=== PATIENT | female | born 2000 ===

== ENCOUNTER → 2023-01-01 10:56 | Outpatient (BNVA) | payer OTHER, SELFPAY | PROVIDERS: Visit Provider Physician Assistant Surgical ==

== ENCOUNTER 2023-01-20 08:25 | Outpatient (AMB) | payer OTHER, SELFPAY ==
--- OUTSIDE RECORDS SUMMARY | 2023-01-20 08:27 | XMS_ITS | Continuity of Care Document ---
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 Refills 0, Maintenance, 12/05/20 12:04:00 EDT, Aerosol, Route to Pharmacy Electronically, [id number], [facility] #[id number], 162.1, cm, 12/07/19 17:49:... Start Date: 12/05/20 Status: Ordered Bactrim DS 800 mg-160 mg oral tablet 1 tablet, By Mouth, 2 times a day, # 10 tablet, 0 Refills, Maintenance, 10/06/17 18:57:34 EDT, Tablet Start Date: 10/06/17 Stop Date: 10/11/17 Status: Ordered doxycycline monohydrate 100 mg oral capsule 1 capsule = 100 mg, By Mouth, 2 times a day, for 7 days, stay out of the sun while taking this medication as it increases risk of severe sunburn, # 14 capsule, 0 Refills, Acute 12/13/20 10:07:00 EDT,12/06/20 10:07:00 EDT, Capsule, [facility] Start Date: 12/06/20 Stop Date: 12/13/20 Status: Ordered Keflex monohydrate 500 mg oral capsule 1 capsule = 500 mg, By Mouth, Every 8 hours, # 15 capsule, 0 Refills, Maintenance, 05/25/16 17:41:07, Capsule Start Date: 05/25/16 Status: Ordered lovastatin 10 mg oral tablet 1 tablet = 10 mg, By Mouth, Daily, with evening meal, # 90 tablet, 0 Refills, Maintenance, 05/12/1512:13:48, Tablet, 1 tablet By Mouth Daily,x90 days,Instr:with evening meal Start Date: 05/12/15 Stop Date: 08/10/15 Status: Ordered [place] 0.65% nasal spray 2 sprays, Nares, Both, 4 times a day, # 1 each, 0 Refills, Maintenance, 12/05/20 12:04:00 EDT, [email or web address] #[id number], Partial fill upon patient request if the prescription is for a schedule II opioid drug., 2 sprays Nares, Both 4 times a day, 16... Start Date: 12/05/20 Status: Ordered omeprazole 40 mg oral enteric coated capsule 1 capsule = 40 mg, By Mouth, Daily, # 14 capsule, 0 Refills, Maintenance, 06/19/18 15:41:06 EST, [facility] Start Date: 06/19/18 Stop Date: 07/03/18 Status: Ordered pseudoephedrine 30 mg oral tablet 2 tablet = 60 mg, By Mouth, Every 6 hours, PRN for congestion, for 7 days, # 48 tablet, 0 Refills, Acute 12/12/20 12:04:00 EDT, 12/05/20 12:04:00 EDT, Tablet, [email or web address] #[id number], Partial fill upon patient request if the prescription is for a... Start Date: 12/05/20 Stop Date: 12/12/20 Status: Ordered Tessalon Perles 100 mg oral capsule 1 capsule = 100 mg, By Mouth, 3 times a day, PRN as needed for cough, for 7 days, # 21 capsule, 0 Refills, Acute 12/12/20 12:04:00 EDT, 12/05/20 12:04:00 EDT, Capsule, [facility] #[id number], Partial fill upon patient request if the prescription... Start Date: 12/05/20 Stop Date: 12/12/20 Status: Ordered Vitamin D3 2000 intl units oral capsule 1 capsule = 2,000 International_Units, By Mouth, Daily, 0 Refills, Maintenance, 06/08/15 17:17:20 Start Date: 06/08/15 Status: Ordered Problem List Condition Effective Dates Status Health Status Inform ant Acanthosis nigricans(Confirmed) Active Exogenous obesity(Confirmed) Active Familial hypercholesterolemia(Confirmed) Active Hyperinsulinism(Confirmed) Active Hyperlipidemia(Confirmed) Active Anxiety and depression(Confirmed) Active Results Radiology Reports * Exam Date Time Procedure Performing Provider Status 12/06/20 7:58 AM Chest 2 Views Frontal and Lat Shannon Valenzuela; Auth (Verified) Notes: (Chest 2 Views Frontal and Lat) Reason For Exam: Chest Pain;Other: RESULT: Chest 2 Views Frontal and Lat Chest 2 Views Frontal and Lat HX OF PRESENT ILLNESS: pt coming in with cough OSB x4 days. States that it has been intermittent innature, feels like she can't take a deep breath. Also with chest pain that has been intermittent innature as well. Describes as sharp pain.; Reason: Chest Pain COMPARISON: None. FINDINGS: LINES AND TUBES: None. LUNGS AND PLEURA: Clear lungs. Normal pulmonary vascularity. No pleural effusion. No pneumothorax. HEART, MEDIASTINUM AND LAKISHA: Heart is normal in size. Normal mediastinal and hilar contour. BONES AND SOFT TISSUES: No acute abnormality. IMPRESSION: No evidence of acute abnormality. WSN: [id number] Ordering Physician: Ana Paula Ferraro Dictated By: Obey Del Rio MD Dictated Date/Time: 12/06/20 8:05 am Reviewed By: Obey Del Rio MD Signed By: Obey Del Rio MD Signed Date/Time: 12/06/20 8:05 am Transcribed By: KEN Transcribed Date/Time: 12/06/20 8:04 am Vital Signs Most recent to oldest [Reference Range]: 1 2 Oxygen Saturation [94-100 %] 98 % (12/06/20 9:31 AM) 98 % (12/06/20 7:17 AM) Pulse Rate [55-90 bpm] 76 bpm (12/06/20 9:31 AM) 96 bpm *H* (12/06/20 7:17 AM) Blood Pressure [90-138/55-84 mm Hg] 121/ 81mm Hg (12/06/20 9:31 AM) 144/80mm Hg *H* (12/06/20 7:17 AM) Respiratory Rate [16-30 br/min] 18 br/mi n (12/06/20 9:31 AM) 22 br/min (12/06/20 7:17 AM) Temperature [96.8-100.4 DegF] 98.1 DegF (12/06/20 9:31 AM) 99.0 DegF (12/06/20 7:17 AM) Mode of Delivery (Oxygen) Room air (12/06/20 9:31 AM) Room air (12/06/20 7:17 AM) Blood pressure sites Arm, right (12/06/20 7:17 AM) Temperature Route Oral (12/06/20 9:31 AM) Oral (12/06/20 7:17 AM) Social History Social History Type Response Smoking Status Never smoker; Tobacc o user in household: No entered on: 06/08/15 Sex
--- OUTSIDE RECORDS SUMMARY | 2023-01-20 08:27 | XMS_ITS | Continuity of Care Document ---
Author Name Unknown Organization [facility] Address [address] [place] [address]- Care Team Providers Care Office Rental Clerk Name Role Phone Nicky GARZA, Melany Macario Primary Care Ph ysician [place] [facility] [place](s[place] 12/07/19 - 12/14/19 [facility] [address] [place] [address]- [facility] Encounter Diagnosis Tongue irritation(Discharge Diagnosis) - 12/07/19 Attending Physician: Nader GARZA, Ray Villarreal Referring Physician: Emanuel Wright MD Allergies, Adverse Reactions, Alerts Substance Reaction Severity Status NKA Active Medications Bactrim DS 800 mg-160 mg oral tablet 1 tablet, By Mouth, 2 times a day, # 10 tablet, 0 Refills, Maintenance, 10/06/17 18:57:34 EDT, Tablet Start Date: 10/06/17 Stop Date: 10/11/17 Status: Ordered clotrimazole 10 mg oral lozenge 10 mg, 1, lozenge, By Mouth, 5 times a day, for 14 days, # 70 lozenge, Refills 0, Tot. Refills 0, Acute 12/21/19 18:13:00 EDT, 12/07/19 18:13:00 EDT, Route to Pharmacy Electronically, [facility] #[id number], 162.1, cm, 12/07/19 17:49:00 EDT, Roberto Start Date: 12/07/19 Stop Date: 12/21/19 Status: Ordered Keflex monohydrate 500 mg oral [...] Date: 05/12/15 Stop Date: 08/10/15 Status: Ordered omeprazole 40 mg oral enteric coated capsule 1 capsule = 40 mg, By Mouth, Daily, # 14 capsule, 0 Refills, Maintenance, 06/19/18 15:41:06 EST, ECCapsule Start Date: 06/19/18 Stop Date: 07/03/18 Status: Ordered Vitamin D3 2000 intl units oral capsule 1 capsule = 2,000 International_Units, By Mouth, Daily, 0 Refills, Maintenance, 06/08/15 17:17:20 Start Date: 06/08/15 Status: Ordered Problem List Condition Effective Dates Status Health Status Inform ant Acanthosis nigricans(Confirmed) Active Exogenous obesity(Confirmed) Active Familial hypercholesterolemia(Confirmed) Active Hyperinsulinism(Confirmed) Active Hyperlipidemia(Confirmed) Active Anxiety and depression(Confirmed) Active Diagnosis Diagnosis Type Effective Dates Health Status Clinical Service Informant Tongue irritation Discharge Diagnosis 12/07/19 Vital Signs Most recent to oldest [Reference Range]: 1 Height 162.1 cm (12/07/19 5:49 PM) Weight 108.1 kg (12/07/19 5:49 PM) Oxygen Saturation [94-100 %] 100 % (12/07/19 5:49 PM) Pulse Rate [55-90 bpm] 82 bpm (12/07/19 5:49 PM) Body Mass Index [18.5-24.99] 41.14 *>HHI* (12/07/19 5:49 PM) Blood Pressure [90-138/55-84 mm Hg] 127/ 67mm Hg (12/07/19 5:49 PM) Respiratory Rate [16-30 br/min] 18 br/mi n (12/07/19 5:49 PM) Temperature [96.8-100.4 DegF] 97.4 DegF (12/07/19 5:49 PM) Mode of Delivery (Oxygen) Room air (12/07/19 5:49 PM) Blood pressure sites Arm, right (12/07/19 5:49 PM) Temperature Route Temporal (7/14/20 5:49 PM) Dry Weight 108.1 kg (12/07/19 5:49 PM) Weight Obtained Via Standing scale (12/07/19 5:49 PM) Dry Weight Obtained Via Standing scale (12/07/19 5:49 PM) Social History Social History Type Response Smoking Status Never smoker; Tobacc o user in household: No entered on: 06/08/15 Sex
--- OUTSIDE RECORDS SUMMARY | 2023-01-20 08:27 | XMS_ITS | Continuity of Care Document ---
Author Name Unknown Organization [facility] Address [address] [place] [address]- Care Team Providers Care Public Address System Operator Name Role Phone Nicky GARZA, Melany Macario Primary Care Ph ysician Encounter [facility] [place] Date(s): 08/23/19 - 08/30/19 [facility] [address] [place] [address]- [facility] Attending Physician: Hasmukh GARZA, Zully Crawford Referring Physician: Melany Saunders MD Allergies, Adverse Reactions, Alerts Substance Reaction Severity Status NKA Active Medications Bactrim DS 800 mg-160 mg oral tablet 1 tablet, By Mouth, 2 times a day, # 10 tablet, 0 Refills, Maintenance, 10/06/17 18:57:34 EDT, Tablet Start Date: 10/06/17 Stop Date: 10/11/17 Status: Ordered Flagyl 500 mg oral tablet 1 tablet = 500 mg, By Mouth, Every 12 hours, for 7 days, do not drink alcohol, # 14 tablet, 0 Refills, Acute 09/02/19 16:19:00 EDT, 08/26/19 16:19:00 EDT, Tablet, [facility] #[id number], 162.1, cm, 08/25/19 15:47:00 EDT, Height, 109.3, kg, ... Start Date: 08/26/19 Stop Date: 09/02/19 Status: Ordered Keflex monohydrate 500 mg oral [...] Active Hyperlipidemia(Confirmed) Active Anxiety and depression(Confirmed) Active Vital Signs Most recent to oldest [Reference Range]: 1 Height 162.1 cm (08/23/19 2:30 PM) Weight 109.3 kg (08/23/19 2:30 PM) Oxygen Saturation [94-100 %] 100 % (08/23/19 2:30 PM) Pulse Rate [55-90 bpm] 98 bpm *H* (08/23/19 2:30 PM) Body Mass Index [18.5-24.99] 41.6 *>HHI* (08/23/19 2:30 PM) Blood Pressure [90-138/55-84 mm Hg] 130/ 75mm Hg (08/23/19 2:30 PM) Respiratory Rate [16-30 br/min] 18 br/mi n (08/23/19 2:30 PM) Temperature [96.8-100.4 DegF] 98.0 DegF (08/23/19 2:30 PM) Mode of Delivery (Oxygen) Room air (08/23/19 2:30 PM) Blood pressure sites Arm, right (08/23/19 2:30 PM) Temperature Route Oral (08/23/19 2:30 PM) Dry Weight 109.3 kg (08/23/19 2:30 PM) Weight Obtained Via Standing scale (08/23/19 2:30 PM) Dry Weight Obtained Via Standing scale (08/23/19 2:30 PM) Social History Social History Type Response Smoking Status Never smoker; Tobacc o user in household: No entered on: 06/08/15 Sex
--- OUTSIDE RECORDS SUMMARY | 2023-01-20 08:27 | XMS_ITS | Continuity of Care Document ---
Author Name Unknown Organization [facility] Address [address] [place] [address]- Care Team Providers Care Emergency Telecommunications Dispatcher Name Role Phone Teodora LAGUNAS, Leonora Primary Care Physician [place] [facility] [place] 12/05/20 - 01/04/21 [facility] [address], [place] [address] Attending Physician: Bandar Kyle Admitting Physician: AdmtrBandar Referring Physician: Admtr, Ar8 Allergies, Adverse Reactions, Alerts Substance Reaction Severity Status NKA Active Medications albuterol CFC free 90 mcg/inh inhalation aerosol 2, puffs, Inhalation, Every 4 hours, PRN, # 1 each, Refills 0, Tot. Refills 0, Maintenance, 12/05/20 12:04:00 EDT, Aerosol, Route to Pharmacy Electronically, [id number], [facility] #[id number], 162.1, cm, 12/07/19 17:49:... Start Date: 12/05/20 Status: Ordered Bactrim DS 800 mg-160 mg oral tablet 1 tablet, By Mouth, 2 times a day, # 10 tablet, 0 Refills, Maintenance, 10/06/17 18:57:34 EDT, Tablet Start Date: 10/06/17 Stop Date: 10/11/17 Status: Ordered Keflex monohydrate 500 mg oral [...] Date: 05/12/15 Stop Date: 08/10/15 Status: Ordered [place] 0.65% nasal spray 2 sprays, Nares, Both, 4 times a day, # 1 each, 0 Refills, Maintenance, 12/05/20 12:04:00 EDT, [facility] #[id number], Partial fill upon patient request if the [...] Active Hyperlipidemia(Confirmed) Active Anxiety and depression(Confirmed) Active Social History Social History Type Response Smoking Status Never smoker; Tobacc o user in household: No entered on: 06/08/15 Sex
--- OUTSIDE RECORDS SUMMARY | 2023-01-20 08:27 | XMS_ITS | Continuity of Care Document ---
Author Name Unknown Organization [facility] Address [address] [place] [address]- Care Team Providers Care Auto Motor Mechanic Name Role Phone Nicky GARZA, Melany Macario Primary Care Ph ysician [place] [facility] [place] 08/25/19 - 09/04/19 [facility] [address] [place] [address]- [facility] Attending Physician: Bandar Kyle Admitting Physician: AdmtrBandar Referring Physician: Admtr ArRaul Allergies, Adverse Reactions, Alerts Substance Reaction Severity [...]
--- OUTSIDE RECORDS SUMMARY | 2023-01-20 08:27 | XMS_ITS | Continuity of Care Document ---
Author Name Unknown Organization [facility] Address [address] [place] [address]- Care Team Providers Care Gear Cutter Name Role Phone Nicky GARZA, Melany Macario Primary Care Ph ysician [place] [facility] [place]07[place] - 01/06/20 [facility] [address] [place] [address]- [facility] Attending Physician: Bandar Kyle Admitting Physician: [...]
--- OUTSIDE RECORDS SUMMARY | 2023-01-20 08:27 | XMS_ITS | Continuity of Care Document ---
Author Name Unknown Organization [facility] Address [address] [place] [address]- Care Team Providers Care Life Insurance Salesperson Name Role Phone Not on Staff, PCP Primary Care Physician Unavail able Encounter [facility] [place] Date(s): 09/07/21 - 09/14/21 [facility] [address] [place] [address]- Encounter Diagnosis Cellulitis(Discharge Diagnosis) - 09/07/21 Attending Physician: Elieser Payne DO Allergies, Adverse Reactions, Alerts No Known Allergies Medications albuterol CFC free 90 mcg/inh inhalation aerosol 2, puffs, Inhalation, Every 4 hours, PRN, # 1 each, Refills 0, Tot. Refills 0, Maintenance, 12/05/20 12:04:00 EDT, Aerosol, Route to Pharmacy Electronically, [id number], [facility] #[id number], 162.1, cm, 12/07/19 17:49:... Start Date: 12/05/20 Status: Ordered Bactrim DS 800 mg-160 mg oral tablet 1 tablet, By Mouth, 2 times a day, # 10 tablet, 0 Refills, Maintenance, 10/06/17 18:57:34 EDT, Tablet Start Date: 10/06/17 Stop Date: 10/11/17 Status: Ordered cephalexin monohydrate 500 mg oral capsule 1 capsule = 500 mg, By Mouth, 4 times a day, for 10 days, # 40 capsule, 0 Refills, Acute 09/18/21 22:07:00 EDT, 09/08/21 22:07:00 EDT, Capsule, [facility] #[id number], Partial fill upon patient request if the prescription is for a schedule II opioid drug.... Start Date: 09/08/21 Stop Date: 09/18/21 Status: Ordered Keflex monohydrate 500 mg oral [...] Date: 05/12/15 Stop Date: 08/10/15 Status: Ordered [place] 0.65% nasal spray 2 sprays, Nares, Both, 4 times a day, # 1 each, 0 Refills, Maintenance, 12/05/20 12:04:00 EDT, [id number], Partial fill upon patient request if the [...] Active Hyperlipidemia(Confirmed) Active Anxiety and depression(Confirmed) Active Obese class II(Confirmed) Active Diagnosis Diagnosis Type Effective Dates Health Status Clini marcy Service Informant Cellulitis Discharge Diagnosis 09/07/21 Vital Signs Most recent to oldest [Reference Range]: 1 Height 162.1 cm (09/07/21 1:31 PM) Oxygen Saturation [94-100 %] 100 % (09/07/21 1:31 PM) Pulse Rate [55-90 bpm] 65 bpm (09/07/21 1:31 PM) Blood Pressure [90-138/55-84 mm Hg] 123/ 71mm Hg (09/07/21 1:31 PM) Respiratory Rate [16-30 br/min] 20 br/mi n (09/07/21 1:31 PM) Temperature [96.8-100.4 DegF] 98.1 DegF (09/07/21 1:31 PM) Mode of Delivery (Oxygen) Room air (09/07/21 1:31 PM) Blood pressure sites Arm, right (09/07/21 1:31 PM) Temperature Route Temporal (09/07/21 1:31 PM) Social History Social History Type Response Smoking Status Never smoker; Tobacc o user in household: No entered on: 06/08/15 Sex
--- OUTSIDE RECORDS SUMMARY | 2023-01-20 08:27 | XMS_ITS | Continuity of Care Document ---
Author Name Unknown Organization [facility] Address [address] [place] [address]- Care Team Providers Care Boring And Filling Machine Operator Name Role Phone Not on Staff, PCP Primary Care Physician Unavail able Encounter [facility] [place] Date(s): 09/07/21 - 10/07/21 [facility] [address] [place], [place] [address] Attending Physician: Bandar Kyle Admitting Physician: Bandar Kyle Referring Physician: Bandar Kyle Allergies, Adverse Reactions, Alerts No Known Allergies Medications albuterol CFC free 90 mcg/inh inhalation aerosol 2, puffs, Inhalation, Every 4 hours, PRN, # 1 each, Refills 0, Tot. Refills 0, Maintenance, 12/05/20 12:04:00 EDT, Aerosol, Route to Pharmacy Electronically, [id number], [facility] #[id number], 162.1, cm, 12/07/19 17:49:... Start Date: 12/05/20 [...] Date: 05/12/15 Stop Date: 08/10/15 Status: Ordered [place] 0.65% nasal spray 2 sprays, Nares, Both, 4 times a day, # 1 each, 0 Refills, Maintenance, 12/05/20 12:04:00 EDT, [facility] #[id number], Partial fill upon patient request if the [...] and depression(Confirmed) Active Obese class II(Confirmed) Active Social History Social History Type Response Smoking Status Never smoker; Tobacc o user in household: No entered on: 06/08/15 Sex
--- OUTSIDE RECORDS SUMMARY | 2023-01-20 08:27 | XMS_ITS | Continuity of Care Document ---
Author Name Unknown Organization [facility] Address [address] [place] [address]- Care Team Providers Care Flue Blower Name Role Phone Teodora LAGUNAS, Leonora Primary Care Physician Unavailab le Encounter [facility] [place] Date(s): 12/05/20 - 12/12/20 [facility] [address] [place] [address]- Encounter Diagnosis Viral URI with cough(Discharge Diagnosis) - 12/05/20 Attending Physician: Cj GARZA, Eva Referring Physician: Leonora Araiza NP Allergies, Adverse Reactions, Alerts Substance Reaction Severity Status NKA Active Medications albuterol CFC free 90 mcg/inh inhalation aerosol 2, puffs, Inhalation, Every 4 hours, PRN, # 1 each, Refills 0, Tot. Refills 0, Maintenance, 12/05/20 12:04:00 EDT, Aerosol, Route to Pharmacy Electronically, [id number], [facility] #[id number], 162.1, cm, 12/07/19 17:49:... Start Date: 12/05/20 [...] Acute 12/13/20 10:07:00 EDT,12/06/20 10:07:00 EDT, Capsule, [facility] Start Date: 12/06/20 Stop Date: [...] Date: 05/12/15 Stop Date: 08/10/15 Status: Ordered [place] 0.65% nasal spray 2 sprays, Nares, Both, 4 times a day, # 1 each, 0 Refills, Maintenance, 12/05/20 12:04:00 EDT, [facility] #[id number], Partial fill upon patient request if the [...] Diagnosis Diagnosis Type Effective Dates Health Status Cl inical Service Informant Viral URI with cough Discharge Diagnosis 12/05/20 Social History Social History Type Response Smoking Status Never smoker; Tobacc o user in household: No entered on: 06/08/15 Sex
--- OUTSIDE RECORDS SUMMARY | 2023-01-20 08:27 | XMS_ITS | Continuity of Care Document ---
Author Name Unknown Organization [facility] Address [address] [place] [address]- Care Team Providers Care Pediatric Anesthesiologist Name Role Phone Nicky GARZA, Melany Macario Primary Care Ph ysician En[place] [facility] [place](s): 08/25/19 - 09/01/19 [facility] [address] [place] [address]- [facility] Attending Physician: Hasmukh GARZA, Zully Crawford Referring [...] 09/02/19 16:19:00 EDT, 08/26/19 16:19:00 EDT, Tablet, [facility] #[id number], 162.1, cm, 08/25/19 15:47:00 EDT, Height, 109.3, kg, 08/22/... Start Date: 08/26/19 Stop Date: 09/02/19 Status: [...] oldest [Reference Range]: 1 Height 162.1 cm (08/25/19 3:47 PM) Oxygen Saturation [94-100 %] 100 % (08/25/19 3:47 PM) Pulse Rate [55-90 bpm] 88 bpm (08/25/19 3:47 PM) Blood Pressure [90-138/55-84 mm Hg] 113/ 67mm Hg (08/25/19 3:47 PM) Respiratory Rate [16-30 br/min] 22 br/mi n (08/25/19 3:47 PM) Temperature [96.8-100.4 DegF] 98.3 DegF (08/25/19 3:47 PM) Mode of Delivery (Oxygen) Room air (08/25/19 3:47 PM) Blood pressure sites Arm, left (08/25/19 3:47 PM) Temperature Route Oral (08/25/19 3:47 PM) Social History Social History Type Response Smoking Status Never smoker; Tobacc o user in household: No entered on: 06/08/15 Sex
--- OUTSIDE RECORDS SUMMARY | 2023-01-20 08:27 | XMS_ITS | Continuity of Care Document ---
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 Refills 0, Maintenance, 12/05/20 12:04:00 EDT, Aerosol, Route to Pharmacy Electronically, [id number], [id number], 162.1, cm, 12/07/19 17:49:... Start Date: 12/05/20 Status: Ordered Ativan 0.5 mg oral tablet 1 tablet = 0.5 mg, By Mouth, 2 times a day, PRN as needed for anxiety, # 2 tablet, 0 Refills, Acute08/23/22 22:45:00 EDT, 08/19/22 22:44:00 EDT, Tablet, [facility]/pharmacy #[id number], Partial fill upon patientrequest if the prescription is for a schedule II op... Start Date: 08/19/22 Stop Date: 08/23/22 Status: Ordered Bactrim DS 800 mg-160 mg [...] Date: 05/12/15 Stop Date: 08/10/15 Status: Ordered [place] 0.65% nasal spray 2 sprays, Nares, Both, 4 times a day, # 1 each, 0 Refills, Maintenance, 12/05/20 12:04:00 EDT, [facility] #[id number], Partial fill upon patient request if the [...] Date: 06/08/15 Status: Ordered Problem List Condition Confirmation Course Effective Dates Status Health Status Informant Acanthosis nigricans Confirmed Active Exogenous obesity Confirmed Active Familial hypercholesterolemia Confirmed Active Hyperinsulinism Confirmed Active Hyperlipidemia Confirmed Active Anxiety and depression Confirmed Active Obese class II Confirmed Active Vital Signs Most recent to oldest [Reference Range]: 1 2 3 Oxygen Saturation [94-100 %] 100 % (08/19/22 11:03 PM) 100 % (08/19/22 4:37 PM) 99 % (08/19/22 12:12 PM) Pulse Rate [55-90 bpm] 88 bpm (08/19/22 11:03 PM) 86 bpm (08/19/22 4:37 PM) 99 bpm *H* (08/19/22 12:12 PM) Blood Pressure [90-138/55-84 mm Hg] 132/82mm Hg (08/19/22 11:03 PM) 128/80mm Hg (08/19/22 4:37 PM) 148/91mm Hg *H* (08/19/22 12:12 PM) Respiratory Rate [16-30 br/min] 18 br/min (08/19/22 11:03 PM) 18 br/min (08/19/22 12:12 PM) Temperature [96.8-100.4 DegF] 98.3 DegF (08/19/22 4:37 PM) 97.9 DegF (08/19/22 12:12 PM) Mode of Delivery (Oxygen) Room air (08/19/22 11:03 PM) Room air (08/19/22 4:37 PM) Room air (08/19/22 12:12 PM) Blood pressure sites Arm, right (08/19/22 11:03 PM) Arm, right (08/19/22 4:37 PM) Arm, left (08/19/22 12:12 PM) Temperature Route Oral (08/19/22 4:37 PM) Oral (08/19/22 12:12 PM) Social History Social History Type Response Smoking Status Never smoker; Tobacc o user in household: No entered on: 06/08/15 Sex Note * Sergio GARZA, Selene Fournier: PERFORM Event Display: Patient Education Leaflets Authored Date: [id number] Anxiety??Reaction ?? [id number] Anxiety??Reaction Anxiety is the feeling we all get when we think something bad might happen. It is a normal responseto stress. It most often causes only a mild reaction. But it can interfere with daily life when anxiety is more severe. In some cases, you may not know what you???re anxious about. Anxiety seems to have both mental and physical triggers. You may have stress from home and family. Or work and social relationships. Anxiety tends to run in families. This may mean it???s linked to genes. During an anxiety reaction, you may feel: ??? Helpless ??? Nervous ??? Depressed ??? Grouchy Your body may show signs of anxiety in many ways. You may have: ??? Dry mouth ??? Shakiness ??? Dizziness ??? Weakness ??? Trouble breathing ??? Fast breathing ???Chest pressure ??? Sweating ??? Headache ??? Nausea ??? Diarrhea ??? Tiredness ??? Inability to sleep ??? Sexual problems Home care Try to find those things that set off anxiety in your life. They may not be obvious. They may include: ??? Daily hassles of life. This can include traffic jams, missed appointments, or car troubles. ???Major life changes. This means both good changes, such as a new baby or job promotion. This can also mean tough life changes, such as loss of a job or loss of a loved one. ??? Overload. This means feeling that you have too many responsibilities. And that you can't take care of all of them. ??? Feeling helpless. You may feel you don???t have any control or choices. You may feel that your problems can't be solved. Notice how your body reacts to stress. This will help you take action before the stress sets off anxiety. When you can, make changes to reduce the sources of your stress. But stress in life often can't be prevented. It is important to learn how to manage stress to reduce anxiety. There are many proven methods that will reduce your anxiety. These include: ??? Exercise ??? Good nutrition ??? Getting enough sleep ??? Relaxation methods ??? Breathing exercises ??? Visualization ??? Biofeedback ??? Meditation ??? Counseling ??? Medicine For more information about this, talk with your healthcare provider. Or check online or at your local library or bookstore. You'll find many books and audiobooks on this subject. ?? Follow-up care If you feel your anxiety is not getting better with self-help, call your healthcare provider. Or make an appointment with a counselor. You may need short-term counseling or medicine to help you manage anxiety. ?? Call 911 Call 911 if any of the following occur: ??? Trouble breathing ??? Confusion ??? Drowsiness or trouble waking up ??? Fainting ??? Rapid heart rate ??? Seizure ??? New chest pain that becomes more severe, lasts longer, or spreads into your shoulder, arm, neck, jaw, or back Call or text [phone] if you have thoughts of harming yourself or others. You will be connected to trained crisis counselors at the National Suicide Prevention Lifeline. An online chat option is also available at www.suicidepreventionlifeline.org. You can also call Lifeline at 416-130-EYTS (851-587-2370). Lifeline is free and available 16/12. ?? When to get medical advice Call your healthcare provider right away if any of the following occur: ??? Symptoms that don't improve or get worse, such as feelings of hopelessness or overwhelming sadness ??? Severe headache not eased by rest and mild pain medicine The National Suicide Prevention Lifeline is available at 689-445-ZCPZ (442-142-2397). The Lifeline is available 16/12 and provides free and confidential support. The Lifeline also has an online chat at www.suicideLoop Commerce.org. ?? Last Reviewed Date: 2021 ?? 6516-7727 [employer]. All rights reserved. This information is not intended as a substitute for professional medical care. Always follow your healthcare professional's instructions. ?? Patient Care team information Care Team Personnel Name: Kandace Mustafa NP Position: [facility] Outreach Member Role: PCP Address: Address: [address] [place] [id number]- Name: Sheryl Jimenez Position: [facility] Associate Professional Member Role: [employer] Provider Name: Cassidy Wagner MD Position: [facility] ED Medicine MD Member Role: Admitting Physician Address: Address: [address] [place] [address]- Name: Selene Hill MD Position: [facility] Resident Member Role: ED Resident Address: Address: [address] [place] [id number]- Name: Shira Monteiro RN Position: [facility] ED RN W/OE and Tasks Member Role: Patient Care Provider Care Team Related Persons Name: NALDO MASTERS Address: home [address] [place] [id number] Name: EMILIA RAO Address: [address] [place] [address]
--- NOTE | 2023-01-20 13:02 | A.OFFVIS_ITS ---
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 Fluids: Coffee/Tea: none, juice: none, soda: Gingerale or Sprite: 1/wk, 10 calorie carbonated drinks, ETOH: none PFSH Medical History (Updated 01/20/23 @ 13:05 by Crow Navarro MD) Anxiety Depression Hyperlipidemia Morbid obesity PCOS (polycystic ovarian syndrome) Surgical History (Updated 01/01/23 @ 11:23 by Ayla Medel CMA) Hx of wisdom tooth extraction Social History (Updated 01/01/23 @ 11:23 by Ayla eMdel CMA) Alcohol intake: never Patient Tobacco Use Status: Never used Tobacco Assessment & Plan Assessment & Plan (1) Morbid obesity: Code(s): E66.01 - Morbid (severe) obesity due to excess calories Plan: 1.? Plan for lap sleeve gastrectomy. If diaphragmatic or ventral hernias are present at time of surgery, these will be repaired laparoscopically as well. Risks and complications were discussed in detail including possible conversion to an open procedure, anastomotic leak, bleeding requiring transfusion, small bowel obstruction, , DVT and pulmonary embolism, cardiac, or pulmonary complications, as termite technician complications such as anastomotic ulcer, insufficient weight loss and vitamin deficiencies. I emphasized the importance of close follow-up, adherence to instructions and good communication. 2. Nutritional counseling. Start with 2 plant-based organic Orgain protein (buy at [employer], [employer], [employer], [employer]) shakes (ONE scoop EACH in 8oz low fat unsweetened almond milk each) at 9am-11am and 12pm-2pm, 1 protein bar (Zone Perfect protein bars, buy at [employer], ?[employer], [employer], or [employer]) at 3pm-5pm, dinner at 6pm (10 forks of protein and 10 forks of salad/vegetables) and two more protein bars after dinner at 7pm-9pm and 10pm-12am. Meal to include lean meat (beef, fish, pork, turkey, chicken), or swedish yogurt, or egg whites, or beans with a salad with olive oil and fruits (berries, pears, apples, kiwi). Avoid salt, breads, potatoes, rice, pasta, desserts. 3. Each shake would be drunk slowly, like coffee in a period of 2 hours. 4. Cut each bar in 4 pieces and eat each piece in 30min ?to make each bar last 2 hours. 5. I emphasized the importance of measuring accurately the food portion and measure it when serving the food in plate 6. The meal portions include 10 full-size forks of meat and 10 full-size forks of salad. You always eat the meat portion but you can replace up to 5 forks for salad/vegetables with rice, potatoes or pasta, or a fruit ?if you like. The less you do it the better weight loss will be. 7. One full-size fork is what it can be scooped on the fork without falling aside and not what can be bit with the fork. Use regular forks like those you find in a typical restaurant. 8.? Please send me weight measurements as soon as possible and then once a week. Always include your diet and exercise plan. 9. Start treadmill with an incline of 2.0 and speed of 3.0. Increase incline by 1 every 3 min to a max incline of 8.0, stay 3min at 8.0 and then return to 2.0 and repeat same steps until calorie goal is met. Goal is to burn 2000 calories p er week on exercise, which means either 300 calories daily, or 400 calories 5 days per week, or 500 calories 4 days per week, or 650 calories 3 days per week. 10. It is important of avoiding and for at least 18 months postoperatively and has been discussed at the infosession. 11. Goal is to lose at least 1.5-2lbs per week 12. Goal to lose 10% of your weight before surgery, which is about 25lbs. Ultimate weight goal: 226lbs before surgery 13. Please follow the diet plan exactly without any change. If you don't like something about the plan or you feel hungry you need to communicate with me so I can help you revise the plan. You should not change the plan yourself. (2) Hyperlipidemia: Code(s): E78.5 - Hyperlipidemia, unspecified (3) PCOS (polycystic ovarian syndrome): Code(s): E28.2 - Polycystic ovarian syndrome Orders: Orders Vitamin B12 and Folate Today E28.2 - Polycystic ovarian syndrome, E66.01 - Morbid (severe) obesity due to excess calories, E78.5 - Hyperlipidemia, unspecified Comprehensive Met. Panel Today E28.2 - Polycystic ovarian syndrome, E66.01 - Morbid (severe) obesity due to excess calories, E78.5 - Hyperlipidemia, unspecified C Reactive Protein Today E28.2 - Polycystic ovarian syndrome, E66.01 - Morbid (severe) obesity due to excess calories, E78.5 - Hyperlipidemia, unspecified Ferritin Today E28.2 - Polycystic ovarian syndrome, E66.01 - Morbid (severe) obesity due to excess calories, E78.5 - Hyperlipidemia, unspecified Hemoglobin A1c Today E28.2 - Polycystic ovarian syndrome, E66.01 - Morbid (severe) obesity due to excess calories, E78.5 - Hyperlipidemia, unspecified Insulin Today E28.2 - Polycystic ovarian syndrome, E66.01 - Morbid (severe) obesity due to excess calories, E78.5 - Hyperlipidemia, unspecified IRON PROFILE Today E28.2 - Polycystic ovarian syndrome, E66.01 - Morbid (severe) obesity due to excess calories, E78.5 - Hyperlipidemia, unspecified Lipid Panel Today E28.2 - Polycystic ovarian syndrome, E66.01 - Morbid (severe) obesity due to excess calories, E78.5 - Hyperlipidemia, unspecified PTHI Today E28.2 - Polycystic ovarian syndrome, E66.01 - Morbid (severe) obesity due to excess calories, E78.5 - Hyperlipidemia, unspecified TSH reflex Free T4 Today E28.2 - Polycystic ovarian syndrome, E66.01 - Morbid (severe) obesity due to excess calories, E78.5 - Hyperlipidemia, unspecified Vitamin A Today E28.2 - Polycystic ovarian syndrome, E66.01 - Morbid (severe) obesity due to excess calories, E78.5 - Hyperlipidemia, unspecified Vitamin B1 Today E28.2 - Polycystic ovarian syndrome, E66.01 - Morbid (severe) obesity due to excess calories, E78.5 - Hyperlipidemia, unspecified Vitamin D 25-OH Total Today E28.2 - Polycystic ovarian syndrome, E66.01 - Morbid (severe) obesity due to excess calories, E78.5 - Hyperlipidemia, unspecified Zinc Today E28.2 - Polycystic ovarian syndrome, E66.01 - Morbid (severe) obesity due to excess calories, E78.5 - Hyperlipidemia, unspecified ECG 12 lead EKG Today E28.2 - Polycystic ovarian syndrome, E66.01 - Morbid (severe) obesity due to excess calories, E78.5 - Hyperlipidemia, unspecified FL upper GI w air Today E28.2 - Polycystic ovarian syndrome, E66.01 - Morbid (severe) obesity due to excess calories, E78.5 - Hyperlipidemia, unspecified Complete Blood Count Auto Diff Today E28.2 - Polycystic ovarian syndrome, E66.01 - Morbid (severe) obesity due to excess calories, E78.5 - Hyperlipidemia, unspecified H Pylori Breath Test Today E28.2 - Polycystic ovarian syndrome, E66.01 - Morbid (severe) obesity due to excess calories, E78.5 - Hyperlipidemia, unspecified US abdomen comp w elastography Today E28.2 - Polycystic ovarian syndrome, E66.01 - Morbid (severe) obesity due to excess calories, E78.5 - Hyperlipidemia, unspecified XR chest 2V Today E28.2 - Polycystic ovarian syndrome, E66.01 - Morbid (severe) obesity due to excess calories, E78.5 - Hyperlipidemia, unspecified Referrals Behavioral Health Referral E28.2 - Polycystic ovarian syndrome, E66.01 - Morbid (severe) obesity due to excess calories, E78.5 - Hyperlipidemia, unspecified Nutrition/Dietitian Referral E28.2 - Polycystic ovarian syndrome, E66.01 - Morbid (severe) obesity due to excess calories, E78.5 - Hyperlipidemia, unspecified Telehealth Telehealth Location of provider rendering services: practice address Location of patient: address on file Patient Identification confirmed using: Name, : Yes Telehealth method: voice only Patient verbally consented to treatment: Yes Patient verbally consented to billing insurance company: Yes Patient informed of any privacy concerns related to visit: Yes Minutes spent on Phone/Video with Pt.: 35 Coding Level of Care Code Tele [facility] Pt Level 3 (650[address]) Diagnoses Morbid obesity E66.01 Hyperlipidemia E78.5 PCOS (polycystic ovarian syndrome) E28.2 Time Spent (min) 35
[2023-01-20 13:11] VITALS: BMI 41.8
[2023-02-16 13:42] LABS: H Pylori Breath Test Negative (Negative)
== END 2023-01-20 13:34 | disposition home or self-care (01) ==
LOC: HO.HBS 08:25
PROVIDERS: Visit Provider Surgery
DX: E66.01 Morbid (severe) obesity due to excess calories (principal); Z68.41 Body mass index [BMI] 40.0-44.9, adult; E28.2 Polycystic ovarian syndrome
CPT/HCPCS: 99203

== ENCOUNTER → 2023-01-20 08:25 | Outpatient (BNVA) | payer OTHER, SELFPAY | PROVIDERS: Visit Provider Surgery | DX: E66.01 Morbid (severe) obesity due to excess calories (principal); Z68.41 Body mass index [BMI] 40.0-44.9, adult; E78.5 Hyperlipidemia, unspecified; E28.2 Polycystic ovarian syndrome; Z11.0 Encounter for screening for intestinal infectious diseases | CPT/HCPCS: 83013 ==

== ENCOUNTER → 2023-02-07 15:30 | Outpatient (BNVA) | payer OTHER, SELFPAY | PROVIDERS: Visit Provider Dietitian, Registered | DX: E66.9 Obesity, unspecified (principal) | CPT/HCPCS: 97802 ==

== ENCOUNTER 2023-02-10 10:23 | Outpatient (AMB) | payer OTHER, SELFPAY ==
--- NOTE | 2023-02-10 10:15 | A.OFFWM_ITS ---
Intake Intake Visit Reasons: VIDEO BH Intake Allergies No Known Allergies Allergy (Verified 01/20/23 13:02) [facility] Medical History (Updated 02/14/23 @ 13:35 by Crow Navarro MD) Anxiety Depression PCOS (polycystic ovarian syndrome) Hyperlipidemia Morbid obesity Surgical History (Updated 01/01/23 @ 11:23 by Ayla Medel CMA) Hx of wisdom tooth extraction Social History (Updated 01/01/23 @ 11:23 by Ayla Medel CMA) Alcohol intake: never Patient Tobacco Use Status: Never used Tobacco Behavioral Health Assessment Weight Management Therapy Therapy Notes Details PT is a 22 year old female, who presents for initial for BH assessment as part of surgical weight loss program. PT reports a Hx of emotional eating, and been in counseling due to depression, panic attacks and generalized anxiety. Currently not in counseling. Her Pcp is prescribing her with psych. meds and pt reports doing well with these. Scores from PHQ-9 indicate minimal/no active Sx of depression. On the other hand Pt denies history or recent concerns with SI/SA, self-harm and/or other-harm. She does uses cannabis but denies any other substance use/dependence. On the other hand, PT scores from BES indicate moderate risk for binge eating and per her statements she struggles with eating behavior. Pt not cleared today, needs a follow up to finish assessment and after that we will meet 1-2 more times to provide support with eating behavior, habit building and Sx management for current BH issues. Presenting Concerns Referral Source WMP Provider. PT sees Dr. Ambrose Reason for referral Completion of behavioral health assessment as part of process for weight-loss surgery. Precipitating Event Obesity, PCOS affecting her weight-loss. Living Situation Current Living Situation Own At risk of losing current housing? No Satisfied with current living situation? Yes Comments Pt lives with boyfriend, 1 dog and 2 cats. Food/Weight/Diet Expectations of change Initial goal to lose 10% of her weight before surgery, which is about 25lbs. Ultimate weight goal: 226lbs before surgery. Her personal goal is to reach 120Lbs. History/Relationship with food Pt reports she doesn't eat former meal or food a lot is more snacks and sweets. Pt reports finding herself eating more when stressed and/or sad. . Example of meals before starting the program Breakfast: skip Lunch: chicken nuggets. Dinner: Rice/chicken or steak. No salad. After dinner snack: sweets (chocolate/cookies/ice-cream) History/Relationship with weight PT reports always been overweight. In the last 5 years 210Lbs lowest weight and 251 Lbs highest weight. History/Relationship with dieting Gym/diet. Last year lost 40Lbs. 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 Binge Eating Do you frequently eat large amounts of food in short periods of time, not feeling physically hungry? No Do you feel out of control when you eat a large amount of food in a short period of time? No Do you eat large amounts of food rapidly and typically alone? No Night Eating Do you wake up at least once during the night to eat? No If you wake up in the night, do you find that it is necessary to eat something in order to fall back asleep? No Do you have little or no appetite in the morning and feel very hungry in the evening, often overeating between dinner and when you go to bed? No Social History Family history and relationship Pt has been in a long-term relationship with current partner for 8 years. Parents are and she has 1 brother. Pt reports good family relationships. Parental/Familial cell tuber hand obligations No children. 3 pets. Developmental history and status within normal limits. Social support Boyfriend, mother. Community support None. Druze/Spirituality Raised as Sabianism. Cultural/Ethnic information . Parents from [place]. Legal Involvement and History Current or historical involvement with the legal system? None. Education Highest grade completed Associate degree in general studies. 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 Currently enrolled in educational program? No Interested in further educational program? Yes (wants to specialize in [employer] also.) Educational Interests/Skills [employer]. 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 No Financial Situation0 Describe current financial situation Comfortable Financial assistance? None Service Service? No Mental Health and Addiction Treatment Current/Past substance abuse? Yes Comments Cannabis use 5 years ago. Smoked, 1-2x at day. She has periods when she stop it for couple months. Psychiatric history -Pt has been in counseling before due to depression, panic attacks and generalized anxiety. Also have some sleep issues. -She current gets prescribed: Lorazepam 1mg (no more refills), Sertraline 50mg (not currently taking it). - Never in crisis or hospitalized for [facility], denied any current or past concerns with SI/SA, self-harm/other-harm. Medical and Physical Health Summary Additional Medical History not covered in history None reported. Sexual History concerns None reported. Physical exam in the last year? Yes Medications Is the patient compliant with medications? No Does the patient have Justin Guardian in place? Not applicable Does the patient use complimentary health approaches? No Trauma/Abuse History History of trauma? No Questionnaires PHQ-9 Over the last 2 weeks, how often have you been bothered by any of the following problems? 1. Little interest or pleasure in doing things: not at all 2. Feeling down, depressed, or hopeless: not at all 3. Trouble falling or staying asleep, or sleeping too much: several days 4. Feeling tired or having little energy: several days 5. Poor appetite or overeating: several days 6. Feeling bad about yourself - or that you are a failure or have let yourself or your family down: not at all 7. Trouble concentrating on things, such as reading the newspaper or watching television: several days 8. Moving or speaking so slowly that other people could have noticed. Or the opposite - being so fidgety or restless that you have been moving around a lot more than usual: not at all 9. Thoughts that you would be better off or of hurting yourself in some way: not at all Total score: 4 Depression Screening Interpretation: Negative [id number] - PHQ-9 Billing: Yes Source: Developed by Drs. Jacky Arevalo, Jennifer Fuller, Jose Bermudez and colleagues, with an educational xin from [employer]. Binge Eating Scale Group 1 A. I don't feel self-conscious about my wt. or body size when I'm with others. B. I feel concerned about how I look to others, but it normally does not make me fell disappointed with myself C. I do get self-conscious about my appearance and wt. which makes me feel disappointed in myself. D. I feel very self-conscious about my wt. and frequently I feel intense shame and disgust for myself. I try to avoid social contacts because of my self- consciousness. Response Group 1: C Group 2 A. I don't have any difficulty eating slowly in the proper manner. B. Although I seem to gobble down foods, I don't end up feeling stuffed because of eating to much. C. At times, I tend to eat quickly and then, I feel uncomfortably full afterwards. D. I have the habit of bolting down my food, without really chewing it. When this happens I usually feel uncomfortably stuffed because I've eaten to much. Response Group 2: C Group 3 A. I feel capable to control my eating urges when I want to. B. I feel like I have failed to control my eating more than the average person. C. I feel utterly helpless when it comes to feeling in control of my eating urges. D. Because I feel so helpless about controlling my eating I have become very desperate about trying to get control. Response Group 3: B Group 4 A. I don't have the habit of eating when I'm bored. B. I sometimes eat when I'm bored, but often I'm able to get busy and get my mind off food. C. I have a regular habit of eating when I'm bored, but occasionally, I can use some other activity to get my mind off eating. D. I have a strong habit of eating when I'm bored. Nothing seems to help me breath the habit. Response Group 4: D Group 5 A. I'm usually physically hungry when I eat something. B. Occasionally, I eat something on impulse even though I really am not hungry. C. I have the regular habit of eating foods, that I might not really enjoy, to satisfy a hungry feeling even though physically, I don't need the food. D. Although I'm not physically hungry, I get a hungry feeling in my mouth that only seems to be satisfied when I eat a food, like sandwich, that fills my mouth. Sometimes, when I eat the food to satisfy my mouth hunger, I then spit the food out so I won't gain weight. Response Group 5: B Group 6 A. I don't feel any guilt or self-hate after I overeat. B. After I overeat, occasionally I feel guilt or self-hate. C. Almost all the time I experience strong guilt or self-hate after I overeat. Response Group 6: B Group 7 A. I don't lose total control of my eating when dieting even after periods when I overeat. B. Sometimes when I eat a forbidden food on a diet, I feel like I blew it and eat even more. C. Frequently, I have the habit of saying to myself, I've blown it now, why not go all the way, when I overeat on a diet. When that happens I eat more. D. I have a regular habit of starting a strict diets for myself but I break the diets by going on an eating binge. My life seems to be either a feast or famine. Response Group 7: C Group 8 A. I rarely eat so much food that I feel uncomfortably stuffed afterwards. B. Usually about once a month, I each such a quantity of food, I end up feeling very stuffed. C. I have regular periods during the month when I eat large amounts of food, either at mealtime or at snacks. D. I eat so much food that I regularly feel quite uncomfortable after eating and sometimes a bit nauseous. Response Group 8: C Group 9 A. My level of calorie intake does not go up very high or go down very low on a regular basis. B. Sometimes after I overeat, I will try to reduce my caloric intake to almost nothing to compensate for the excess calories I've eaten. C. I have a regular habit of overeating during the night. It seems that my routine is not to be hungry in the morning but overeat in the evening. D. In my adult years, I have had week-long periods where I practically starve myself. This follows periods when I overeat. It seems I live a life of either feast or famine. Response Group 9: B Group 10 A. I usually am able to stop eating when I want to. I know when enough is enough. B. Every so often, I experience a compulsion to eat which I can't seem to control. C. Frequently, I experience strong urges to eat which I seem unable to control, but at other times I can control my eating urges. D. I feel incapable of controlling urges to eat. I have a fear of not being able to stop eating voluntarily. Response Group 10: A Group 11 A. I don't have any problem stopping eating when I feel full. B. I usually can stop eating when I feel full but occasionally overeat leaving me feeling uncomfortably stuffed. C. I have a problem stopping eating once I start and usually I feel uncomfortably stuffed after I eat a meal. D. Because I have a problem not being able to stop eating when I want, I sometimes have to induce vomiting to relieve my stuffed feeling. Response Group 11: B Group 12 A. I seem to eat just as much when I'm with others, Family social gatherings as when I'm by myself. B. Sometimes, when I'm with other persons, I don't eat as much as I want to eat because I'm self-conscious about my eating. C. Frequently, I eat only a small amount of food when others are present, because I'm very embarrassed about my eating. D. I feel so ashamed about overeating that I pick times to overeat when I know no one will see me. I feel like a closet eater. Response Group 12: B Group 14 A. I don't think much about trying to control unwanted eating urges. B. At least some of the time, I feel my thoughts are pre-occupied with trying to control my eating urges. C. I feel that frequently I spend much time thinking about how much I ate or about trying not to eat anymore. D. It seems to me that most of my waking hours are pre-occupied by thoughts about eating or not eating. I feel like I'm constantly struggling not to eat. Response Group 14: B Group 15 A. I don't think about food a great deal. B. I have strong craving for food but they last only for brief periods of time. C. I have days when I can't seem to think about anything else but food. D. Most of my days seem to be pre-occupied with thoughts about food. I feel like I live to eat. Response Group 15: B Group 16 A. I usually know whether or not I'm physically hungry. I take the right portion of food to satisfy me. B. Occasionally, I feel uncertain about knowing whether or not I'm physically hungry. A these times it's hard to know how much food I should take to satisfy me. C. Even though I might know how many calories I should eat, I don't have any idea what is a normal amount of food for me. Response Group 16: B Binge Eating Score: 20 (For Question 13. None apply as Pt only used to have dinner as a formal meal.) Score less than 17 Minimal Risk Score between 18-26 Moderate Risk Score between 27-46 High Risk Assessment & Plan Assessment & Plan (1) Depression: Code(s): F32.A - Depression, unspecified Qualifiers: Depression Type: unspecified Qualified Code(s): F32.A - Depression, unspecified (2) Panic attack: Code(s): F41.0 - Panic disorder [episodic paroxysmal anxiety] (3) Generalized anxiety disorder: Code(s): F41.1 - Generalized anxiety disorder Plan No cleared today. Will need to f/up to finish assessment. PT will need support with emotional eating and Sx management as she doesn't have a therapist but suffers from depression/anxiety. Telehealth Telehealth Location of provider rendering services: other (Home office. [place], [place]) Location of patient: address on file Patient Identification confirmed using: Name, : Yes Telehealth method: video Patient verbally consented to treatment: Yes Patient verbally consented to billing insurance company: Yes Patient informed of any privacy concerns related to visit: Yes Minutes spent on Phone/Video with Pt.: 60 Coding Level of Care Code New Pt Tele Psy Diag Papo ([id number]) Patient Type New Diagnoses Depression, unspecified depression type F32.A Depression Type: unspecified Panic attack F41.0 Generalized anxiety disorder F41.1 Time Spent (min) 60
== END 2023-02-10 11:18 | disposition home or self-care (01) ==
LOC: HO.HBST 10:23
PROVIDERS: Visit Provider Counselor Mental Health
DX: F32.A Depression, unspecified (principal); F41.0 Panic disorder [episodic paroxysmal anxiety]; F41.1 Generalized anxiety disorder
CPT/HCPCS: 90791

== ENCOUNTER → 2023-02-10 10:23 | Outpatient (BNVA) | payer OTHER, SELFPAY | PROVIDERS: Visit Provider Counselor Mental Health ==

== ENCOUNTER 2023-02-14 08:12 | Outpatient (AMB) | payer OTHER, SELFPAY ==
--- NOTE | 2023-02-14 13:08 | A.OFFVIS_ITS ---
Intake VS Expanded 02/14/23 13:21 Height 5 ft 5 in Weight 254 lb 2 oz BMI 42.3 Body Fat 137.5 Body Fat Percentage 54.1 Free Fat Mass 116.6 Visceral Mass 23 Water Mass 80 BMR 1,489 Intake Visit Reasons: TV Follow Up SWL - 1ST Allergies No Known Allergies Allergy (Verified 01/20/23 13:02) HPI TV Follow Up SWL - 1ST HPI Details Start time: 1.01pm, End time: 1.31pm ?I spent 25 minutes speaking with the patient on the phone plus an additional 5 minutes reviewing and updating records for a total of 30 minutes [facility] Medical History (Updated 02/10/23 @ 10:57 by Odalis Patel [facility]) Anxiety Depression PCOS (polycystic ovarian syndrome) Hyperlipidemia Morbid obesity Surgical History (Updated 01/01/23 @ 11:23 by Ayla Medel [facility]) Hx of wisdom tooth extraction Social History (Updated 01/01/23 @ 11:23 by Ayla Medel [employer]) Alcohol intake: never Patient Tobacco Use Status: Never used Tobacco Assessment & Plan Assessment & Plan (1) Morbid obesity: Code(s): E66.01 - Morbid (severe) obesity due to excess calories Plan: 1. Change to 3 Zone Perfect protein bars at 9am-11am, 12pm-2pm and 3pm-5pm, dinner at 6pm (10 forks of protein and 10 forks of salad/vegetables) and two more protein bars after dinner at 7pm-9pm and 10pm-12am. 2. Try to the Celebrate REBUILD protein shakes (ONE scoop EACh in 8oz almond milk) at 9-11 and 12-2, replacing the first 2 bars of the above plan. Please let me know if you like them or not. 3. Each shake would be drunk slowly, like coffee in a period of 2 hours. 4. Cut each bar in 4 pieces and eat each piece in 30min ?to make each bar last 2 hours. 5. I emphasized the importance of measuring accurately the food portion and measure it when serving the food in plate 6. The meal portions include 10 full-size forks of meat and 10 full-size forks of salad. You always eat the meat portion but you can replace up to 5 forks for salad/vegetables with rice, potatoes or pasta, or a fruit ?if you like. The less you do it the better weight loss will be. 7. One full-size fork is what it can be scooped on the fork without falling aside and not what can be bit with the fork. Use regular forks like those you find in a typical restaurant. 8.? Please send me weight measurements weekly on . Always include your diet and exercise plan. 9. Start treadmill with an incline of 2.0 and speed of 3.0. Increase incline by 1 every 3 min to a max incline of 8.0, stay 3min at 8.0 and then return to 2.0 and repeat same steps until calorie goal is met. Goal is to burn 2000 calories per week on exercise, which means either 300 calories daily, or 400 calories 5 days per week, or 500 calories 4 days per week, or 650 calories 3 days per week. Telehealth Telehealth Location of provider rendering services: practice address Location of patient: address on file Patient Identification confirmed using: Name, : Yes Telehealth method: voice only Patient verbally consented to treatment: Yes Patient verbally consented to billing insurance company: Yes Patient informed of any privacy concerns related to visit: Yes Minutes spent on Phone/Video with Pt.: 30 Coding Level of Care Code Tele Est Pt Level 4 (70376) Diagnoses Morbid obesity E66.01 Time Spent (min) 30
[2023-02-14 13:21] VITALS: BMI 42.3
== END 2023-02-14 13:32 | disposition home or self-care (01) ==
LOC: HO.HBS 08:12
PROVIDERS: Visit Provider Surgery
DX: E66.01 Morbid (severe) obesity due to excess calories (principal); Z68.41 Body mass index [BMI] 40.0-44.9, adult
CPT/HCPCS: 99214

== ENCOUNTER 2023-02-14 09:46 | Outpatient (REF) | payer OTHER, SELFPAY | END 2023-02-14 09:47 | disposition home or self-care (01) | LOC: HO.US 09:46 | PROVIDERS: Visit Provider Surgery | DX: E66.01 Morbid (severe) obesity due to excess calories (principal); E78.5 Hyperlipidemia, unspecified; E28.2 Polycystic ovarian syndrome; Z71.3 Dietary counseling and surveillance | CPT/HCPCS: 99211 ==

== ENCOUNTER 2023-02-14 10:47 | Outpatient (REF) | payer OTHER, SELFPAY ==
[2023-02-14 11:27] LABS: MANUAL DIFF FLAG NO
[2023-02-14 11:47] LABS: Basophils Absolute Auto 0.1 X10*3/uL (0.0-0.2); Basophils Percent Auto 0.8 % (0-2); Eosinophils Absolute Auto 0.2 X10*3/uL (0.0-0.4); Eosinophils Percent Auto 2.5 % (0-4); Hematocrit 42.5 % (37.0-47.0); Hemoglobin 14.4 g/dl (12.0-16.0); Imm Gran Abs Auto 0.02 X10*3/uL (0.00-0.03); Imm Gran Pct Auto 0.3 % (0.0-0.4); Mean Corpuscular HGB Conc 33.9 g/dl (31.0-35.0); Mean Corpuscular Volume 85.7 fL (80.0-98.0); Mean Platelet Volume 9.4 fL (9.4-12.3); Monocytes Absolute Auto 0.5 X10*3/uL (0.1-1.2); Monocytes Percent Auto 6.9 % (2-11); Neutrophils Absolute Auto 4.4 x10*3/uL (2.0-8.3); Neutrophils Percent Auto 61.5 % (45-73); Platelet Count 314 X10*3/uL (160-400); Red Blood Count 4.96 X10*6/uL (4.20-5.50); Red Cell Distribution Width 12.5 % (11.0-16.0); White Blood Count 7.2 X10*3/uL (4.8-10.8)
[2023-02-14 11:55] LABS: Estimated Average Glucose 97 mg/dL
[2023-02-14 12:35] LABS: Folate 10.6 ng/mL (> or = 4.0); Vitamin B12 457 pg/mL (200-900)
[2023-02-14 12:55] LABS: Alanine Aminotransferase 42 U/L (0-31); Albumin Level 4.3 g/dL (3.5-5.0); Alkaline Phosphatase 66 U/L (39-117); Anion Gap 14 (12-20); Aspartate Amino Transferase 26 U/L (5-31); Bilirubin Total 0.4 mg/dL (0.0-1.0); Blood Urea Nitrogen 8 mg/dL (9-16); C Reactive Protein 1.34 mg/dL (< or = 0.50); Calcium 9.6 mg/dL (8.4-10.2); Carbon Dioxide 23 mmol/L (22-29); Chloride 107 mmol/L (96-108); Cholesterol 344 mg/dL (<200); Estimated Glomerular Filt Rate > 60; Ferritin 168 ng/mL (10-122); Glucose Random 100 mg/dL (60-115); HDL Cholesterol 33 mg/dL (>40); Insulin 47 uU/mL (2-29); Iron 59 mcg/dL (30-160); Percent Iron Saturation 22 % (15-50); Potassium 4.3 mmol/L (3.3-5.1); Sodium 140 mmol/L (135-145); TSH reflex Free T4 0.76 uIU/mL (0.32-4.0); Total Iron Binding Capacity 274 mcg/dL (228-428); Triglycerides 468 mg/dL (<150); Unsaturated Iron Binding 215 ug/dL; Vitamin D 25-OH Total 20.4 ng/mL (>30)
[2023-02-17 14:38] LABS: Calcium (PTHI) 9.9 mg/dL (8.6-10.2); PTHI 42 pg/mL (16-77)
[2023-02-18 06:39] LABS: Zinc 102 mcg/dL (60-130)
[2023-02-20 06:13] LABS: Vitamin B1 9 nmol/L (8-30)
[2023-02-20 23:13] LABS: Vitamin A 47 mcg/dL (38-98)
== END 2023-02-14 10:48 | disposition home or self-care (01) ==
LOC: HO.LAB 10:47
PROVIDERS: Visit Provider Surgery
DX: E66.01 Morbid (severe) obesity due to excess calories (principal); E78.5 Hyperlipidemia, unspecified; E28.2 Polycystic ovarian syndrome
CPT/HCPCS: 36415; 80053; 80061; 82306; 82607; 82728; 82746; 83036; 83525; 83540; 83970; 84425; 84443; 84590; 84630; 85025; 86140

== ENCOUNTER 2023-02-26 09:59 | Outpatient (REF) | payer OTHER, SELFPAY ==
--- NOTE | ~2023-02-26 | FL_ITS ---
EXAMINATION: XR FLUOROSCOPY UPPER GI WITH AIR CLINICAL INFORMATION: Obesity COMPARISON: None available. TECHNIQUE: Upper GI was performed using thin and thick barium and effervescent granules. FINDINGS: Esophageal motility is normal. No hernia or reflux is seen. The stomach and duodenum are normal. No fold thickening, mass, ulcer or stricture. FLUOROSCOPY TIME: 26 seconds DOSE AREA PRODUCT: 635 uGy-m2 (microgray-meter squared) total dose 15 mgy 18 saved fluoroscopic images. FL/FL upper GI w air IMPRESSION: Unremarkable examination.
--- NOTE | 2023-02-26 10:47 | ECG_ITS ---
Test Reason : e66.01 Blood Pressure : / mmHG Vent. Rate : 076 BPM Atrial Rate : 076 BPM P-R Int : 156 ms QRS Dur : 074 ms QT Int : 402 ms P-R-T Axes : 016 062 044 degrees QTc Int : 452 ms Normal sinus rhythm Normal ECG No previous ECGs available Referred By: Crow Navarro Electronically Signed By:BULMARO GAGE
== END 2023-02-26 10:00 | disposition home or self-care (01) ==
LOC: HO.XRAY 09:59
PROVIDERS: Visit Provider Surgery
DX: E66.01 Morbid (severe) obesity due to excess calories (principal); E78.5 Hyperlipidemia, unspecified; E28.2 Polycystic ovarian syndrome
CPT/HCPCS: 71046; 74246; 93005

== ENCOUNTER → 2023-02-26 10:04 | Outpatient (BNV) | payer OTHER, SELFPAY | PROVIDERS: Visit Provider Radiology Diagnostic Radiology | DX: E66.01 Morbid (severe) obesity due to excess calories (principal) | CPT/HCPCS: 74246 ==

== ENCOUNTER 2023-03-12 08:09 | Outpatient (AMB) | payer OTHER, SELFPAY ==
--- NOTE | 2023-03-12 12:12 | MHC.OFFVISWM ---
Intake VS Expanded 03/12/23 12:28 Height 5 ft 5 in Weight 250 lb BMI 41.6 Body Fat % 53 Body Fat Mass 132.5 Fat Free Mass 117.6 Visceral Fat Rating 22 Body Water % 32.2 Body Water Mass 80.5 Basal Metabolic Rate/Score 1,514 Intake Visit Reasons: TV Follow Up SWL Allergies No Known Allergies Allergy (Verified 01/20/23 13:02) HPI TV Follow Up SWL HPI Details Start time: 12.06pm, End time: 12.36pm ?I spent 25 minutes speaking with the patient on the phone plus an additional 5 minutes reviewing and updating records for a total of 30 minutes HPI Comments History of Present Illness Details Overall weight loss: 1.2lbs, or 0.48% TBWL Doing very well last 3 weeks Is doing 2 Orgain protein shakes (2 scoops each in 8oz oatmilk), 1-2 Zone Perfect protein bar, one meal (10 forks of protein and 10 forks of vegetables or salad). Exercise: is going to the Gym doing treadmill x 5 days per week (Speed: 3.3, incline: 2-8 for 500 calories) PFSH Medical History (Updated 02/14/23 @ 13:35 by Crow Navarro MD) Anxiety Depression PCOS (polycystic ovarian syndrome) Hyperlipidemia Morbid obesity Surgical History (Updated 01/01/23 @ 11:23 by Ayla Medel CMA) Hx of wisdom tooth extraction Social History (Updated 01/01/23 @ 11:23 by Ayla Medel CMA) Alcohol intake: never Patient Tobacco Use Status: Never used Tobacco Assessment & Plan Assessment & Plan (1) Morbid obesity: Code(s): E66.01 - Morbid (severe) obesity due to excess calories Plan: 1. Please change nutritional plan to one Orgain with ONE scoop in 8oz almond milk, one Orgain protein shake (2 scoops in 8oz oatmilk), 2 Zone Perfect protein bars (one before and one after dinner) and one meal (10 forks of protein and 10 forks of vegetables or salad). 2. Exercise: continue Gym doing treadmill x 5 days per week (Speed: 3.3, incline: 2-8 for 500 calories). Next time you increase the intensity, please increase the incline first and not the speed (incline: 3 to 9 for example). 3. Continue to send me weight measurements weekly on Telehealth Telehealth Location of provider rendering services: practice address Location of patient: address on file Patient Identification confirmed using: Name, : Yes Telehealth method: voice only Patient verbally consented to treatment: Yes Patient verbally consented to billing insurance company: Yes Patient informed of any privacy concerns related to visit: Yes Minutes spent on Phone/Video with Pt.: 30 Coding Level of Care Code Tele Est Pt Level 4 (08016) Diagnoses Morbid obesity E66.01 Time Spent (min) 30
[2023-03-12 12:28] VITALS: BMI 41.6
== END 2023-03-12 12:37 | disposition home or self-care (01) ==
LOC: HO.HBS 08:09
PROVIDERS: Visit Provider Surgery
DX: E66.01 Morbid (severe) obesity due to excess calories (principal); Z68.41 Body mass index [BMI] 40.0-44.9, adult
CPT/HCPCS: 99214

== ENCOUNTER → 2023-03-12 08:09 | Outpatient (BNVA) | payer OTHER, SELFPAY | PROVIDERS: Visit Provider Surgery ==

== ENCOUNTER → 2023-03-14 14:37 | Outpatient (BNVA) | payer OTHER, SELFPAY | PROVIDERS: Visit Provider Dietitian, Registered | DX: E66.01 Morbid (severe) obesity due to excess calories (principal); E78.5 Hyperlipidemia, unspecified; E28.2 Polycystic ovarian syndrome; Z68.41 Body mass index [BMI] 40.0-44.9, adult | CPT/HCPCS: 97803 ==

== ENCOUNTER 2023-03-17 12:58 | Outpatient (REF) | payer OTHER, SELFPAY ==
--- NOTE | ~2023-03-17 | US_ITS ---
EXAMINATION: US COMPLETE ABDOMEN WITH LIVER ELASTOGRAPHY CLINICAL INFORMATION: Morbid obesity. COMPARISON: None available. TECHNIQUE: Real-time imaging of the abdominal viscera. Noninvasive ultrasound liver fibrosis assessment is performed using Jena ElastPQ point quantification shear wave elastography (2D-SWE) with a C5-2 MHz transducer. Multiple elastography samples are obtained. FINDINGS: PANCREAS: Normal. The visualized pancreatic head and body are normal in appearance. The remainder of the pancreas is obscured from visualization by the overlying bowel gas. ABDOMINAL AORTA: The proximal, middle, and distal aortic segments are normal in caliber. INFERIOR VENA CAVA: Visualized portions are normal. LIVER: The liver demonstrates normal contour and increased echogenicity, with pericholecystic sparing. No focal lesion or intrahepatic biliary duct dilatation. The right lobe measures 18.0 cm in length. The left lobe measures 12.0 cm in length. Portal flow is towards the liver (hepatopetal). Shear wave liver elastography median stiffness is 1.69 m/s (reference: normal median stiffness is 1.3 m/s or less). IQR/median stiffness to assess sampling precision is 0.11 (reference: good quality data set is IQR/median stiffness of 0.15 or less). GALLBLADDER: Normal. The gallbladder is physiologically distended without evidence of stones, sludge, polyps, wall thickening or pericholecystic fluid. COMMON BILE DUCT: Normal in caliber measuring 0.3 cm in diameter. RIGHT KIDNEY: Normal. No hydronephrosis. No renal calculi or focal parenchymal lesions. The kidney measures 10.5 cm in maximum dimension. LEFT KIDNEY: Normal. No hydronephrosis. No renal calculi or focal parenchymal lesions. The kidney measures 11.6 cm in maximum dimension. SPLEEN: Normal. The spleen measures 10.7 cm in maximum dimension. FREE FLUID: None. US/US abdomen comp w elastography IMPRESSION: 1. There is generalized increase in hepatic echotexture, consistent with fatty infiltration or hepatocellular disease. Please correlate clinically. Characteristic pericholecystic sparing favors fatty infiltration. No focal hepatic mass or intrahepatic biliary dilatation is seen. 2. There is mild hepatomegaly. 3. Liver elastography: In the absence of other known clinical signs, measurements rule out compensated advanced chronic liver disease. If there are known clinical signs, further testing may be needed for confirmation. REFERENCE: Society of Radiologists in Ultrasound Liver Stiffness Thresholds (2020): LIVER STIFFNESS THRESHOLDS: *Liver Stiffness equal or less than 1.3 m/s: High probability of being normal. *Liver Stiffness less than 1.7 m/s: In the absence of other known clinical signs, rules out compensated advanced chronic liver disease. *Liver Stiffness 1.7-2.1 m/s: Suggestive of compensated advanced chronic liver disease but need further test for confirmation. *Liver Stiffness over 2.1 m/s: Rules in compensated advanced chronic liver disease. *Liver Stiffness over 2.4 m/s: Suggestive of clinically significant portal hypertension. QUALITY OF DATA SET: *IQR/Median value equal or less than 0.15 implies a quality data set. *IQR/Median value over 0.15 implies a poor quality data set. SIGNIFICANT CHANGE FROM PRIOR EXAM: Significant change if liver stiffness measurement is 10% or greater from prior exam. OTHER CONSIDERATIONS: The stage of liver fibrosis may be overestimated in the setting of acute hepatitis, liver inflammation, elevated liver function tests, hepatic vascular congestion, obstructive cholestasis, non-fasting state, and infiltrative diseases such as amyloidosis and lymphoma. In some patients with NAFLD, the liver stiffness thresholds for compensated advanced chronic liver disease may be lower. In causes other than viral hepatitis and NAFLD, liver stiffness thresholds are not well established.
== END 2023-03-17 12:59 | disposition home or self-care (01) ==
LOC: HO.US 12:58
PROVIDERS: Visit Provider Surgery
DX: E66.01 Morbid (severe) obesity due to excess calories (principal); E78.5 Hyperlipidemia, unspecified; E28.2 Polycystic ovarian syndrome
CPT/HCPCS: 76705; 76981

== ENCOUNTER → 2023-03-26 09:00 | Outpatient (BNVA) | payer OTHER, SELFPAY | PROVIDERS: Visit Provider Counselor Mental Health ==

== ENCOUNTER 2023-04-09 08:13 | Outpatient (AMB) | payer OTHER, SELFPAY ==
--- NOTE | 2023-04-09 11:39 | MHC.OFFVISWM ---
Intake VS Expanded 04/09/23 11:51 Height 5 ft 5 in Weight 242 lb 2 oz BMI 40.3 Body Fat % 51 Body Fat Mass 123.5 Fat Free Mass 118.8 Visceral Fat Rating 21 Body Water % 33.6 Body Water Mass 81.3 Basal Metabolic Rate/Score 1,518 Intake Visit Reasons: TV Follow Up SWL Allergies No Known Allergies Allergy (Verified 01/20/23 13:02) HPI TV Follow Up SWL HPI Details Start time: 11.30am, End time: 12pm ?I spent 25 minutes speaking with the patient on the phone plus an additional 5 minutes reviewing and updating records for a total of 30 minutes HPI Comments History of Present Illness Details Overall weight loss: 9lbs, or 3.6% TBWL Is doing one Orgain shake (1 scoop in almond milk), one Orgain shake (2 scoops in almond milk), 2 Zone perfect protein bars and one meal (10 forks of meat and 10 forks of salad or vegetables) Exercise: is doing treadmill for 500 calories x5/week (incline: up to 12, speed: 3mph) PFSH Medical History (Updated 02/14/23 @ 13:35 by Crow Navarro MD) Anxiety Depression PCOS (polycystic ovarian syndrome) Hyperlipidemia Morbid obesity Surgical History (Updated 01/01/23 @ 11:23 by Ayla Medel CMA) Hx of wisdom tooth extraction Social History (Updated 01/01/23 @ 11:23 by Ayla Medel CMA) Alcohol intake: never Patient Tobacco Use Status: Never used Tobacco Assessment & Plan Assessment & Plan (1) Morbid obesity: Code(s): E66.01 - Morbid (severe) obesity due to excess calories Plan: 1. Plan for lap sleeve gastrectomy including upper GI endoscopy. All tests has been completed and reviewed and the patient is cleared for the surgery. ?If diaphragmatic or ventral hernias are present at time of surgery, these will be repaired laparoscopically as well. Risks and complications were discussed in detail including possible conversion to an open procedure, anastomotic leak, bleeding requiring transfusion, small bowel obstruction, , DVT and pulmonary embolism, cardiac, or pulmonary complications, as computer terminal operator complications such as anastomotic ulcer, insufficient weight loss and vitamin deficiencies. I emphasized the importance of close follow-up, adherence to instructions and good communication. So far she has proven to be an excellent communicator and very compliant with all our directions accomplishing a great weight loss. I believe that she is an excellent candidate and she is ready. 2. Change nutritional plan to TWO Orgain shakes (1 scoop EACH in almond milk), 2 Zone perfect protein bars and one meal (10 forks of meat and 10 forks of salad or vegetables) 3. Exercise: continue treadmill for 500 calories x5/week (incline: up to 12, speed: 3mph). Try to increase the amount of calories at the treadmill over 500 calories when feasible. 4. Continue to send me weight measurements weekly on Telehealth Telehealth Location of provider rendering services: practice address Location of patient: address on file Patient Identification confirmed using: Name, : Yes Telehealth method: voice only Patient verbally consented to treatment: Yes Patient verbally consented to billing insurance company: Yes Patient informed of any privacy concerns related to visit: Yes Minutes spent on Phone/Video with Pt.: 30 Coding Level of Care Code Tele Est Pt Level 4 (43176) Diagnoses Morbid obesity E66.01 Time Spent (min) 30
[2023-04-09 11:51] VITALS: BMI 40.3
== END 2023-04-09 12:01 | disposition home or self-care (01) ==
LOC: HO.HBS 08:13
PROVIDERS: Visit Provider Surgery
DX: E66.01 Morbid (severe) obesity due to excess calories (principal)
CPT/HCPCS: 99214

== ENCOUNTER → 2023-04-09 08:13 | Outpatient (BNVA) | payer OTHER, SELFPAY | PROVIDERS: Visit Provider Surgery ==

== ENCOUNTER → 2023-04-23 09:00 | Outpatient (BNVA) | payer OTHER, SELFPAY | PROVIDERS: Visit Provider Counselor Mental Health ==

== ENCOUNTER → 2023-04-23 09:00 | Outpatient (AMB) | payer OTHER, SELFPAY ==
--- NOTE | 2023-04-23 09:16 | MHC.WMTHER ---
Intake Intake Visit Reasons: VIDEO F/U Allergies No Known Allergies Allergy (Verified 01/20/23 13:02) [facility] Medical History (Updated 02/14/23 @ 13:35 by Crow Navarro MD) Anxiety Depression PCOS (polycystic ovarian syndrome) Hyperlipidemia Morbid obesity Surgical History (Updated 01/01/23 @ 11:23 by Ayla Medel CMA) Hx of wisdom tooth extraction Social History (Updated 01/01/23 @ 11:23 by Ayla Medel CMA) Alcohol intake: never Patient Tobacco Use Status: Never used Tobacco Behavioral Health Assessment Weight Management Therapy Therapy Notes Details PT presents for a F/up with provider. Pt reports she is doing well, following meal plan and exercise instructions. INTERVENTIONS: Discussed functioning, routine and compliance with exercise/meal plan. Reviewed strategies to manage the holidays and maintain boundaries with herself around eating/exercise. Discussed strategies we worked on last session and reminded of ways to continue working toward building new/long-term habits. RESPONSE: Pt active and cooperative. PLAN: meet again 2 weeks post-surgery. Presenting Concerns Referral Source [facility] Provider. PT sees Dr. Ambrose Reason for referral Completion of behavioral health assessment as part of process for weight-loss surgery. Precipitating Event Obesity, PCOS affecting her weight-loss. Assessment & Plan Assessment & Plan (1) Depression: Code(s): F32.A - Depression, unspecified Qualifiers: Depression Type: unspecified Qualified Code(s): F32.A - Depression, unspecified (2) Panic attack: Code(s): F41.0 - Panic disorder [episodic paroxysmal anxiety] (3) Generalized anxiety disorder: Code(s): F41.1 - Generalized anxiety disorder Plan Pt has been cleared. We will meet again after her surgery. Next jeffery: TBD and/or around 2 weeks post-op. Telehealth Telehealth Location of provider rendering services: other (Home office. [place], [place]) Location of patient: address on file Patient Identification confirmed using: Name, : Yes Telehealth method: video Patient verbally consented to treatment: Yes Patient verbally consented to billing insurance company: Yes Patient informed of any privacy concerns related to visit: No Minutes spent on Phone/Video with Pt.: 30 Coding Level of Care Code Established Pt Tele Psytx 30 mins (98098) Patient Type Established Diagnoses Depression, unspecified depression type F32.A Depression Type: unspecified Panic attack F41.0 Generalized anxiety disorder F41.1 Time Spent (min) 30
== END ==
PROVIDERS: Visit Provider Counselor Mental Health
DX: F33.1 Major depressive disorder, recurrent, moderate (principal); F41.0 Panic disorder [episodic paroxysmal anxiety]; F41.1 Generalized anxiety disorder
CPT/HCPCS: 90832

== ENCOUNTER 2023-05-16 08:21 | Outpatient (AMB) | payer OTHER, SELFPAY ==
--- NOTE | 2023-05-16 10:16 | A.OFFVIS_ITS ---
Intake VS Expanded 05/16/23 10:22 Height 5 ft 5 in Weight 232 lb 6 oz BMI 38.7 Body Fat % 48.5 Body Fat Mass 112.8 Fat Free Mass 119.8 Visceral Fat Rating 20 Body Water % 35.3 Body Water Mass 82.1 Basal Metabolic Rate/Score 1,547 Intake Visit Reasons: TV Pre Op LSG 05/29/23 Allergies No Known Allergies Allergy (Verified 05/16/23 10:17) Medication List - Last Reconciled 05/16/23 by Crow Navarro MD atorvastatin 10 mg PO DAILY cholecalciferol (vitamin D3) 125 mcg PO DAILY cyanocobalamin (vitamin B-12) 250 mcg PO DAILY etonogestrel (Nexplanon) subdermal ondansetron 4 mg PO Q12H pantoprazole 40 mg PO DAILY polyethylene glycol 3350 (Miralax) 17 grams PO DAILY sucralfate 10 mL PO BID HPI TV Pre Op LSG 05/29/23 HPI Details Start time: 10.20am, End time: 10.30am ?I spent 15 minutes speaking with the patient on the phone plus an additional 5 minutes reviewing and updating records for a total of 20 minutes HPI Comments History of Present Illness Details Overall weight loss: 18.6lbs, or 7.4% TBWL Is doing 2 Orgain protein shakes (1 scoop in almond milk), 3 Zone protein bars and one meal (10 forks of protein and 10 forks of salad or vegetables) Exercise: doing treadmill at [facility] [employer] for 500 calories x5-6 days per week PFSH Medical History (Updated 05/16/23 @ 10:25 by Crow Navarro MD) Obesity Anxiety Depression PCOS (polycystic ovarian syndrome) Hyperlipidemia Morbid obesity Surgical History (Updated 01/01/23 @ 11:23 by Ayla Medel CMA) Hx of wisdom tooth extraction Social History (Updated 01/01/23 @ 11:23 by Ayla Medel CMA) Alcohol intake: never Patient Tobacco Use Status: Never used Tobacco Assessment & Plan Assessment & Plan (1) Obesity: Code(s): E66.9 - Obesity, unspecified Qualifiers: Obesity type: due to excess calories Obesity classification: adult class 2 (BMI 35 - 39.9) Serious obesity comorbidity presence: with serious comorbidity Body mass index: BMI 38.0-38.9 Qualified Code(s): E66.01 - Morbid (severe) obesity due to excess calories; Z68.38 - Body mass index [BMI] 38.0- 38.9, adult Plan: 1. Plan for lap sleeve gastrectomy including upper GI endoscopy. All tests has been completed and reviewed and the patient is cleared for the surgery. ?If diaphragmatic or ventral hernias are present at time of surgery, these will be repaired laparoscopically as well. Risks and complications were discussed in detail including possible conversion to an open procedure, anastomotic leak, bleeding requiring transfusion, small bowel obstruction, , DVT and pulmonary embolism, cardiac, or pulmonary complications, as senior care complications such as anastomotic ulcer, insufficient weight loss and vitamin deficiencies. I emphasized the importance of close follow-up, adherence to instructions and good communication. So far she has proven to be an excellent communicator and very compliant with all our directions accomplishing a great weight loss. I believe that she is an excellent candidate and she is ready. 2. Preop prescriptions were provided and explained the purpose of each one. Need to be purchased preop. Start Pantoprazole now as you get it from the pharmacy, 1 pill per day. Sucralfate and Zofran are for after surgery as needed. 3. Bowel prep: please do 7 packets ?of Miralax mixing each one with a an 8oz glass of water, crystal light, gatorade zero, or propel ?on 05/27/23 and the same amount on 05/28/23. Continue the protein shakes during? the bowel prep. 4. Needs to purchase 1oz medicine cups . 5. Needs to purchase Children's liquid Tylenol for postop pain control. 6. Avoid aspirin, motrin, Advil, Aleve, Ibuprofen, Naproxyn. Tylenol is OK. 7. She needs to purchase the Celebrate 4:1 protein shakes from the hospital's gift shop. 8. Will do basic preop blood work-up any day between Friday05/20/23 and Friday05/23/23 fasting for 12 hours and is scheduled to see the Anesthesiologist prior to the day of surgery. 9. Importance of adherence to postop folllow-up and recommendations was underscored and she understands that. 10. Stop food and bars as of Friday05/20/23 and continue with 2 Orgain protein shakes (ONE scoop EACH in 8oz almond milk) at 9am-11am, 12pm-2pm and THREE more Orgain protein shakes with TWO scoops in 8oz of almond milk at 3pm-5pm, 6pm-8pm and at 9pm-11pm 11. No soups, broths or V8 12. The patient's?medical?history has been reviewed and they are considered low risk for post op DVT and therefore DVT prophylaxis is not considered necessary. Travel after surgery was reviewed. The patient has not disclosed any travel plans during the first 30 days after surgery and they have been advised that within the first 30 days after surgery any bus, plane, train or car travel over 2 hours in duration is contraindicated due to the possibility of developing blood clots from immobility. Any travel, needs to include periods of ambulation of 10 minutes in duration every 2 hours.? Patient was instructed to discuss any plans for travel during this period with their bariatric surgeon.? 13. Please take at the day of surgery the following medications: NONE 14. Stop any control pills and don't use them for one month after surgery. The Nexplanon is excluded as it is implanted. 15. Absolutely no smoking or vaping, or marijuana until the surgery and for at least the first 4 weeks. Only nicotine patches are allowed. 16. Send me weight measurements on and then on 05/29/23 the day of surgery before you go to the hospital. 17. Avoid any steroids by mouth for any reason. Let me know if someone prescribes them to you Orders: Orders Prothrombin Time INR Today E66.9 - Obesity, unspecified, E78.5 - Hyperlipidemia, unspecified Lipid Panel Today E66.9 - Obesity, unspecified, E78.5 - Hyperlipidemia, unspecified Hemoglobin A1c Today E66.9 - Obesity, unspecified, E78.5 - Hyperlipidemia, unspecified C Reactive Protein Today E66.9 - Obesity, unspecified, E78.5 - Hyperlipidemia, unspecified Insulin Today E66.9 - Obesity, unspecified, E78.5 - Hyperlipidemia, unspecified Comprehensive Met. Panel Today E66.9 - Obesity, unspecified, E78.5 - Hyperlipide tyrell, unspecified TSH reflex Free T4 Today E66.9 - Obesity, unspecified, E78.5 - Hyperlipidemia, unspecified Type and Screen Today E66.9 - Obesity, unspecified, E78.5 - Hyperlipidemia, unspecified Partial Thromboplastin Time Today E66.9 - Obesity, unspecified, E78.5 - Hyperlipidemia, unspecified Complete Blood Count Auto Diff Today E66.9 - Obesity, unspecified, E78.5 - Hyperlipidemia, unspecified Medications: New pantoprazole 40 mg PO DAILY 90 tabs 0RF K21.9 - Gastro-esophageal reflux disease without esophagitis ondansetron Only take one every 12 hours as needed if you have nausea 4 mg PO Q12H 20 tabs 0RF nausea and vomiting R11.0 - Nausea polyethylene glycol 3350 (Miralax) Mix each packet with 8oz of water, Crystal light, or Gatorade zero, or Propel and do 7 packets on 05/27/23 and another 7 packets on 05/28/23 17 grams PO DAILY 14 ea 0RF Z01.818 - Encounter for other preprocedural examination sucralfate 90-day supply 10 mL PO BID 1,200 mL 0RF K21.9 - Gastro-esophageal reflux disease without esophagitis Telehealth Telehealth Location of provider rendering services: practice address Location of patient: address on file Patient Identification confirmed using: Name, : Yes Telehealth method: voice only Patient verbally consented to treatment: Yes Patient verbally consented to billing insurance company: Yes Patient informed of any privacy concerns related to visit: Yes Minutes spent on Phone/Video with Pt.: 20 Coding Level of Care Code Tele Est Pt Level 3 (76259) Diagnoses Class 2 severe obesity due to excess calories with serious comorbidity and body mass index (BMI) of 38.0 to 38.9 in adult E66.01; Z68.38 Obesity type: due to excess calories Obesity classification: adult class 2 (BMI 35 - 39.9) Serious obesity comorbidity presence: with serious comorbidity Body mass index: BMI 38.0-38.9 Time Spent (min) 20
[2023-05-16 10:22] VITALS: BMI 38.7
== END 2023-05-16 10:30 | disposition home or self-care (01) ==
PROVIDERS: Visit Provider Surgery
DX: E66.01 Morbid (severe) obesity due to excess calories (principal); Z68.38 Body mass index [BMI] 38.0-38.9, adult
CPT/HCPCS: 99213

== ENCOUNTER → 2023-05-16 08:21 | Outpatient (BNVA) | payer OTHER, SELFPAY | PROVIDERS: Visit Provider Surgery ==

== ENCOUNTER 2023-05-20 10:34 | Outpatient (REF) | payer OTHER, SELFPAY ==
[2023-05-20 10:47] LABS: MANUAL DIFF FLAG NO
[2023-05-20 11:54] LABS: Basophils Absolute Auto 0.1 X10*3/uL (0.0-0.2); Basophils Percent Auto 0.8 % (0-2); Eosinophils Absolute Auto 0.2 X10*3/uL (0.0-0.4); Eosinophils Percent Auto 1.7 % (0-4); Hematocrit 42.8 % (37.0-47.0); Hemoglobin 14.7 g/dl (12.0-16.0); Imm Gran Abs Auto 0.04 X10*3/uL (0.00-0.03); Imm Gran Pct Auto 0.5 % (0.0-0.4); Lymphocytes Percent Auto 22.8 % (20-40); Mean Corpuscular HGB Conc 34.3 g/dl (31.0-35.0); Mean Corpuscular Hemoglobin 29.9 pg (27.0-33.0); Mean Corpuscular Volume 87.2 fL (80.0-98.0); Mean Platelet Volume 9.8 fL (9.4-12.3); Monocytes Absolute Auto 0.5 X10*3/uL (0.1-1.2); Monocytes Percent Auto 5.6 % (2-11); Neutrophils Percent Auto 68.6 % (45-73); Platelet Count 349 X10*3/uL (160-400); Red Blood Count 4.91 X10*6/uL (4.20-5.50); Red Cell Distribution Width 12.1 % (11.0-16.0); White Blood Count 8.8 X10*3/uL (4.8-10.8)
[2023-05-20 12:03] LABS: Estimated Average Glucose 91 mg/dL; Hemoglobin A1c % 4.8 % (<6.0)
[2023-05-20 12:04] LABS: Prothrombin Time 11.7 SEC (11.1-13.3)
[2023-05-20 12:07] LABS: Partial Thromboplastin Time 28.3 SEC (26.0-36.4)
[2023-05-20 12:39] LABS: Alanine Aminotransferase 25 U/L (0-31); Albumin Level 4.4 g/dL (3.5-5.0); Alkaline Phosphatase 70 U/L (39-117); Anion Gap 15 (12-20); Aspartate Amino Transferase 18 U/L (5-31); Bilirubin Total 0.4 mg/dL (0.0-1.0); Blood Urea Nitrogen 13 mg/dL (9-16); C Reactive Protein 0.71 mg/dL (< or = 0.50); Calcium 9.8 mg/dL (8.4-10.2); Carbon Dioxide 25 mmol/L (22-29); Chloride 106 mmol/L (96-108); Cholesterol 225 mg/dL (<200); Estimated Glomerular Filt Rate > 60; Glucose Random 94 mg/dL (60-115); HDL Cholesterol 35 mg/dL (>40); LDL Cholesterol Calculated 122 mg/dL (<100); Sodium 142 mmol/L (135-145); Total Protein 8.1 g/dL (6.5-8.0); Triglycerides 344 mg/dL (<150)
[2023-05-20 12:56] LABS: Insulin 30 uU/mL (2-29); TSH reflex Free T4 1.16 uIU/mL (0.32-4.0)
== END 2023-05-20 10:35 | disposition home or self-care (01) ==
LOC: HO.LAB 10:34
PROVIDERS: Visit Provider Surgery
DX: E66.9 Obesity, unspecified (principal); E78.5 Hyperlipidemia, unspecified
CPT/HCPCS: 36415; 80053; 80061; 83036; 83525; 84443; 85025; 85610; 85730; 86140; 86850; 86900; 86901

== ENCOUNTER 2023-05-29 06:18 | Inpatient (IN) | payer OTHER, SELFPAY ==
[2023-05-21 11:03] VITALS: BMI 38.6
--- NOTE | 2023-05-23 23:33 | P.HPSUR_ITS ---
Pre-Procedural Eval Section A Date of Service: 05/23/23 The patient is an INPATIENT: Yes The History & Physical has been completed within 30 days and I have reviewed it.: No Section B Chief Complaint: Morbid (severe) obesity due to excess calories Relevant Family History (Specify if Yes): No Relevant Social History: None Present Medications: None Medical History: No relevant PMH History of Previous Operations: No relevant previous surgery Allergies: Allergies Allergy/AdvReac Type Severity Reaction Status Date / Time No Known Allergies Allergy Verified 05/16/23 10:17 Review of Systems Sugical H&P ROS: Negative: Constitution, Cardiovascular, Respiratory, Neurological, Psychiatric, Hem-Onc, Allergic/Immunologic, Gastrointestinal, Genitourinary, Musculoskeletal, Integumentary, Endocrine and Eyes/Ears/Nos e/Throat Exam Surgical H&P Exam: Normal: HEENT, Normal: Heart, Normal: Lungs, Normal: Extremities, Normal: Abdomen, Normal: Skin and Normal: Neurological Plan Diagnosis/Plan: Unchanged I have reviewed the history and physical and performed a pertinent physical examination on my patient. No changes have occurred unless specified. Time Spent With Patient Time: Total time managing care of this patient today ____ minutes.
--- NOTE | 2023-05-28 08:28 | HO.ANESPROP2 ---
Documented by User: Susan Orr NP 05/28/23 08:29 HPI - Anesthesia Eval Consult details Narrative: 22yo F for Gastrectomy Sleeve- EGD, possible diaphragmatic hernia, possible ventral hernia, possible open PMFSH Active Problems Active Problems: All Active Problems (Updated 05/16/23 @ 10:25 by Crow Navarro MD) Vitamin B12 deficiency (Acute) Vitamin D deficiency (Acute) Obesity (Acute) Anxiety (Acute) Depression (Acute) PCOS (polycystic ovarian syndrome) (Acute) Hyperlipidemia (Acute) Morbid obesity (Acute) Past Medical History Medical History Obesity Anxiety Depression PCOS (polycystic ovarian syndrome) Hyperlipidemia Morbid obesity Surgical History Surgical History Hx of wisdom tooth extraction Social History Social History Are you a primary director of critical care to a significant other at home: No Alcohol intake: never Patient Tobacco Use Status: Never used Tobacco Use of substances other than those prescribed or required for medical reasons: Yes Substance Use Type Other:: last used 05/18/23 Have you been hit, kicked, punched, or otherwise hurt by someone within the past year? If so, by whom?: No Are you DNR?: No Advance Directives: No Advance Directives Information Provided: No Advance Directives on File: No Recently lost weight without trying: No Eating poorly because of decreased appetite: No Nutrition Risks: No Nutritional Risk Patient : No FDLMP: 04/30/23 : No Poor oral hygiene: No (3 crowns) Meds Allergies Allergy/AdvReac Type Severity Reaction Status Date / Time No Known Allergies Allergy Verified 05/16/23 10:17 Home Medications Medication Instructions Recorded Confirmed Last Taken Type etonogestrel 68 mg subdermal subdermal 01/01/23 05/16/23 05/27/23 22:00 History implant (Nexplanon) Exam Height,Weight and Vital Signs: Height 5 ft 5 in Weight 105.233 kg Pertinent Lab Results Pertinent Lab Results: Laboratory Tests 05/20/23 10:45 Blood Type A Positive Antibody Screen NEGATIVE Laboratory Tests 05/20/23 10:45 WBC 8.8 Hgb 14.7 Hct 42.8 Plt Count 349 PT 11.7 INR 1.0 APTT 28.3 Sodium 142 Potassium 4.0 Chloride 106 Carbon Dioxide 25 BUN 13 Creatinine 0.73 Narrative Narrative: EKG 02/2023 Vent. Rate : 076 BPM Atrial Rate : 076 BPM P-R Int : 156 ms QRS Dur : 074 ms QT Int : 402 ms P-R-T Axes : 016 062 044 degrees QTc Int : 452 ms Normal sinus rhythm Normal ECG No previous ECGs available Assessment and Plan Assessment Anesthesia Assessment: Chart Reviewed Documented by User: Makayla Jara MD 05/29/23 07:29 PMFSH Past Medical History Medical History Obesity Anxiety Depression PCOS (polycystic ovarian syndrome) Hyperlipidemia Morbid obesity Surgical History Surgical History Hx of wisdom tooth extraction History of Problems with Anesthesia: No Social History Social History Are you a primary director of critical care to a significant other at home: No Alcohol intake: never Patient Tobacco Use Status: Never used Tobacco Use of substances other than those prescribed or required for medical reasons: Yes Substance Use Type Other:: last used 05/18/23 Have you been hit, kicked, punched, or otherwise hurt by someone within the past year? If so, by whom?: No Are you DNR?: No Advance Directives: No Advance Directives Information Provided: No Advance Directives on File: No Recently lost weight without trying: No Eating poorly because of decreased appetite: No Nutrition Risks: No Nutritional Risk Patient : No FDLMP: 04/30/23 : No Poor oral hygiene: No (3 crowns) Meds Allergies Allergy/AdvReac Type Severity Reaction Status Date / Time No Known Allergies Allergy Verified 05/16/23 10:17 Home Medications Medication Instructions Recorded Confirmed Last Taken Type etonogestrel 68 mg subdermal subdermal 01/01/23 05/16/23 05/27/23 22:00 History implant (Nexplanon) Exam Airway Mallampati Class: II TM Dist: >3cm Neck ROM: Full Loose/Missing/Broken Teeth: No Heart: RRR Lungs: CTA Assessment and Plan Assessment Anesthesia Assessment: Anesthesia Plan Discussed Final Anesthetic Review History of Problems with Anesthesia: No NPO: Yes ASA Class: III Final Preanesthetic Review: Meds/Allgs Chart Reviewed, Consent Obtained/Reviewed and Anes Risks/Benef Reviewed Patient Risk: Intermediate Procedure Risk: Intermediate Anesthetic Plan Anesthetic Plan: GA Disposition: Standard PACU
[2023-05-29] VITALS (13 sets, daily range): BP systolic 125–142; BP diastolic 77–89; PULSE 72–114; RESP 16–24; TEMP 36–37.6; O2SAT 93–100; BMI 39.0; BMI 45.2
--- NOTE | 2023-05-29 07:14 | PHA.MEDREC ---
Pharmacy Consult ? Medication Reconciliation Pharmacy has completed the medication reconciliation. Reviewed med rec done by nursing
--- NOTE | 2023-05-29 07:39 | PM.OP ---
Brief Operative Note Date of Service: 05/29/23 Pre-op diagnosis: Severe obesity with comorbidities (see below) Post-op diagnosis: same Procedure: INITIAL PATIENT BMI ON PRESENTATION AT OUR OFFICE: 41.8 kg/m2 LAST BMI BEFORE SURGERY: 38.2 kg/m2 COMORBIDITIES: hyperlipidemia, PCOS, depression, anxiety, liver steatosis, liver fibrosis ?The patient presented to the Weight Management Program with significant obesity that was negatively impacting the patient's comorbidities as listed above.? The program is a phased program with a special focus on preoperative medical weight management to promote substantial weight loss and prepare the patients for the second phase of the program: bariatric surgery. The patient participated in an intensive weekly lifestyle ?intervention and exercise program during which the patient ?has lost between the initial office visit and the last preoperative visit 21.8lbs, or 8.68% of initial actual body weight. It was deemed appropriate for the patient to now have bariatric surgery. In light of the current Covid-19 pandemic and the well documented strong association of obesity and increased risk of worse outcomes if infected with Covid-19 (REFERENCES:https://pubmed.ncbi.nlm.nih.gov/48378205/,?https://pubmed.ncbi.nlm.nih.gov/01036262/), any delay in undergoing bariatric surgery may lead to the patient's worsening health condition and increased?risk of more severe Covid-19 disease if infected. In addition a recent?study from [facility] published in [facility] Surgery on 05/21/2021 ([email or web address]) found that, among patients with obesity, substantial weight loss achieved with surgery was associated with improved outcomes of COVID-19 infection. The findings suggest that obesity can be a modifiable risk factor for the severity of COVID-19 infection. In addition, the patient met the BMI-criteria for bariatric surgery based on the BMI on initial presentation. The patient should not be penalized for achieving such weight loss because ?it is not sustainable long-term without surgical intervention and it was achieved in preparation for bariatric surgery ?under my direction and based on my published research ([email or web address]).[email or web address] and?[email or web address].[email or web address]/[email or web address])[email or web address]/pdf) ?that a 10% preoperative weight loss improves long-term weight loss after surgery and reduces perioperative complications.? Insurance carriers such as [facility] have endorsed my recommendations ?and have included in their policies criteria to include a 10% preoperative weight loss requirement. PROCEDURE: Esophago-gastroscopy laparoscopic sleeve gastrectomy and laparoscopic gastropexy INDICATIONS: This is a 22 year-old female who was electively scheduled for laparoscopic, possibly open sleeve gastrectomy. The risks and complications of the procedure were discussed with the patient in advance, particularly the possibility of ; pulmonary embolism; staple line leak; bleeding; GERD; cardiac, pulmonary, or renal complications; as well as long-term problems such as insufficient weight loss, vitamin deficiency, strictures, or ulcers. The patient understood all the risks, and was in agreement to proceed with surgery. DESCRIPTION OF PROCEDURE: After informed consent was obtained from the patient, the patient was given preoperative antibiotics, and was transferred to the operating room. After successful induction of general anesthesia, pneumatic compression devices were placed on both lower extremities. An upper endoscopy was performed next. The oropharynx and esophagus appeared to be within normal limits. There was no diaphragmatic hernia present consistent with the findings of the preoperative upper GI. The stomach was entered. Then after all fluid and air were suctioned and the stomach was fully decompressed, the scope was withdrawn and secured in the mid esophagus. The patient was then prepped and draped in the usual sterile manner, and abdominal access was established at the right upper quadrant with the Ramone technique. A 12 mm blunt port was inserted, and the abdomen was insufflated with CO2 to a pressure of 15 mmHg. Under direct visualization, additional ports were placed, specifically two 5 mm Versi-step ports to the left upper quadrant, and a 5 mm Versi-Step port to the right upper quadrant. 1% lidocaine plain was used to infiltrate all port sites as well as all fascia defects. Using the EndoClose suture passer device, I placed a #1 Polysorb tie across the falciform ligament in order to retract it up against the abdominal wall and prevent injury of the ligament with our instruments during the procedure. Following that, the patient was placed in a steep reverse Trendelenburg position. An additional 5 mm port was placed to the right flank for the Mediflex retractor that was used to retract the left lobe of the liver. The gastro-esophageal fat pad was opened with the ultrasonic device (Thunderbeat, Olympus) and the anterior esophagus and hiatus were exposed. The angle of His was opened with the ultrasonic device the fundus of the stomach from any diaphragmatic and splenic attachments. I then opened the gastrocolic ligament between the transverse colon and the greater curvature of the stomach with the ultrasonic device to enter the lesser sac and facilitate the ligation of the short gastric vessels. I started at a mid-point along the greater curvature and using the Thunderbeat, all short gastric vessels were divided all the way to the angle of His until the left long was completely dissected at its entirety. I then divided the gastro-colic ligament distally to a distance of about 3-4 cm proximal to the pylorus. The stomach was then divided transversely with one Endo HOMA-45 purple and four HOMA-60 articulating purple loads using the SIGNIA stapler and loads. Every effort was made that the gastric sleeve had a tubular shape and an even caliber throughout. Once the sleeve resection was completed, the staple line of the gastric sleeve was reinforced with Hemoclips. The resected stomach was retrieved without difficulty from the Ramone port. A gastropexy was then performed in order to prevent postoperative GERD and partial gastric volvulus. Several interrupted 2.0 Surgidac sutures were placed between the sleeve's staple line and the previously divided greater omentum and gastro-colic ligament using the Endo-Stitch device. ?An upper endoscopy was performed. There was no narrowing at the GE junction. The scope was easily advanced all the way to the pylorus which was clearly visualized. There was no narrowing anywhere and the sleeve's caliber was even throughout. The sleeve's staple line was inspected and there was no evidence of ischemia, bleeding or dehiscence. At that point the gastroscope was withdrawn from the patient?s mouth while we were decompressing the bowel and the stomach from any remaining air. I looked into the lesser sac to see how the sleeve was situating and it was situating well. There was no bleeding from the staple line, spleen, or short gastric vessels. The Mediflex retractor was removed, and the undersurface of the liver was inspected and there was no bleeding. The patient was placed in supine position. I closed the fascial defect of the 12 mm port site with a figure of eight #1 Polysorb suture. Then 30cc Ropivacaine plain with 10 mg of Dexamethasone were used to infiltrate the fascial closure as well as all skin incisions. At this point, the abdomen was deflated, all ports were removed under direct vision, and no bleeding was noted from any of the port sites. The skin incisions were irrigated with saline and were closed with 4-0 absorbable monofilament sutures. Steri-Strips and OpSites were used to cover all incisions. The patient was extubated and was transferred in stable condition to the recovery room for further care. I was present and performed all eng[place] parts of the procedure. Ms. Nunez was the spa assistant manager. There were no residents to assist with this case. Howard Navarro MD, PhD, FACS Surgeon: Crow Navarro MD Anesthesia: GETA, local and other (TAP block) Was an Legal Document Assistant used for this Procedure?: No Legal Document Assistant: Cindy Nunez Estimated blood loss (mL): 10 IV fluids (mL): 2,200 Urine output (mL): 0 (No Tracey to record output) Pathology: other (Stomach) Condition: stable Disposition: PACU
--- NOTE | 2023-05-29 07:42 | PM.PNGS ---
Subjective Subjective Date of Service: 05/30/23 Interval history: Feels well. Mild incisional pain. She is tolerating phase 1 bariatric diet Physical Exam Vital Signs: Vital Signs: Last Vital Signs Temp 97.9 F 05/29/23 06:30 Pulse 90 05/29/23 06:30 Resp 16 05/29/23 06:30 BP 126/77 05/29/23 06:30 Pulse Ox 97 05/29/23 06:30 O2 Del Method Room Air 05/29/23 06:30 BMI result Body Mass Index 39.0 GI: Inspection: Yes normal to inspection, Yes incision (clean, dry and intact) and Yes obesity Extrem: Right lower extremity: normal to inspection (no calf tenderness) Left lower extremity: normal to inspection (no calf tenderness) Objective Data Active Medications Albuterol Sulfate (Albuterol Sulfate (0.083%) 2.5 Mg/3 Ml Vial.Neb) 2.5 mg INHALE ONCE PRN PRN Reason: Wheezing Fentanyl (Fentanyl Citrate/Pf 100 Mcg/2 Ml Vial) 50 mcg IVPUSH Q5M PRN; Protocol PRN Reason: Pain, Severe (Pain Scale 7-10) Fentanyl (Fentanyl Citrate/Pf 100 Mcg/2 Ml Vial) 25 mcg IVPUSH Q5M PRN; Protocol PRN Reason: Pain, Moderate(Pain Scale 4-6) Hydromorphone HCl (Hydromorphone Hcl 0.5 Mg/0.5 Ml Syringe) 0.25 mg IVPUSH Q5M PRN; Protocol PRN Reason: Pain, Severe (Pain Scale 7-10) Lactated Ringer's (Lr) 1,000 mls @ 100 mls/hr IVCONT .Q10H [facility] Lactated Ringer's (Lr) 1,000 mls @ 999 mls/hr IV .Q1H1M [facility] Stop: 05/29/23 08:30 Last Admin: 05/29/23 06:49 Dose: 999 mls/hr Documented By: LAURI Ondansetron HCl (Ondansetron Hcl 4 Mg/2 Ml Vial) 4 mg IVPUSH ONCE PRN PRN Reason: Nausea and Vomiting Oxycodone HCl (Oxycodone Hcl Immed Release 5 Mg Tablet) 5 mg PO ONCE PRN PRN Reason: Pain, Severe (Pain Scale 7-10) Labs 05/30/23 06:22 05/30/23 06:22 Labs: Laboratory Results - last 24 hr 05/29/23 06:10 Urine Test NEGATIVE Procedures Date of Service Date of Service: 05/30/23 Progress Note: A&P Assessment and plan (1) Morbid obesity: Status: Acute Assessment and Plan: s/p laparoscopic sleeve gastrectomy, lysis of adhesions, diaphragmatic hernia repair and gastropexy Doing well Will check am labs and if OK the patient will be discharged home (2) Hyperlipidemia: Status: Acute (3) PCOS (polycystic ovarian syndrome): Status: Acute (4) Depression: Status: Acute (5) Anxiety: Status: Acute (6) Steatosis, liver: Status: Acute (7) Liver fibrosis: Status: Acute (8) S/P laparoscopic sleeve gastrectomy: Status: Acute Time Spent With Patient Time: Total time managing care of this patient today ____ minutes. Quality Stroke Does the patient have a stroke diagnosis?: No VTE Prior VTE?: No VTE Risk Level:: Surgical - moderate VTE Device Contraindication: N/A - Device Ordered VTE Drug Contraindication: Treatment Not Indicated
--- NOTE | 2023-05-29 07:45 | PM.DS ---
DS: Providers Provider Date of Service: 05/30/23 Date of admission: 05/29/23 06:18 Primary care physician: Unknown Physician DS: Diagnosis Discharge Diagnosis (1) Morbid obesity: Status: Acute (2) Hyperlipidemia: Status: Acute (3) PCOS (polycystic ovarian syndrome): Status: Acute (4) Depression: Status: Acute (5) Anxiety: Status: Acute (6) Steatosis, liver: Status: Acute (7) Liver fibrosis: Status: Acute DS: Summary Hospital Course Hospital Course: ADMITTING DIAGNOSIS: morbid obesity, HLD, PCOS, anxiety/depression DISCHARGE DIAGNOSIS: same, s/p laparoscopic sleeve gastrectomy PAST SURGICAL HISTORY: none PROCEDURE: upper endoscopy, laparoscopic sleeve gastrectomy DISCHARGE SUMMARY: History of Present Illness: The patient is a 22 year-old woman with a BMI of 41.8 kg/m2 and associated co-morbidities as described above. The patient had extensive work-up, lost 18.6 lbs preoperatively and was electively scheduled for laparoscopic, possible open sleeve gastrectomy and gastropexy. Risks and complications of the surgery were discussed with the patient in advance, particularly the possibility of , pulmonary embolism, anastomotic leak, bleeding, bowel injury, GERD, cardiac, renal or pulmonary complications. The patient understood all the risks and was in agreement with the surgical plan. Hospital Course: The patient underwent an uneventful laparoscopic sleeve gastrectomy with gastropexy on the day of admission. Postoperatively, the patient was transferred to the surgical floor. The patient received IV Acetaminophen and IV dilaudid for pain control. Patient was started on bariatric phase 1 diet POD #0. On postoperative day one, the patient was feeling well without nausea, vomiting, fevers, or tachycardia. The patient had some mild incisional pain and the abdomen was soft. On the morning of postoperative day one, the patient was continued on 1 ounce of water or ice every half hour. During the day, the patient did fairly well, having some incisional pain, but able to ambulate adequately and to tolerate liquids well. Since the patient is doing well, we decided that the patient was ready to be discharged. The patient was given instructions to follow-up with me next week and to call my office for any fever over 101, persistent abdominal pain, nausea, vomiting, GERD, symptoms of DVT such as calf tenderness, or leg swelling, or pulmonary embolism such as chest pain or shortness of breath. The patient was also instructed to drink 40-60 ounces of liquids per day using the 1-ounce cups. The patient had been given prescriptions for Tylenol for pain, Zofran prn for nausea, and pantoprazole and carafate previously. The patient was encouraged to ambulate and use the incentive spirometer. The patient was allowed to shower, but no baths, and encouraged to stay active at home. All of these instructions were given to the patient personally. All questions were answered and the patient understood all instructions, the instructions were also given to the patient in print. Time Attestation Discharge coordination time: Less than 30 minutes Quality: Safe Use of Opioids Does Pt have an Active Cancer Diagnosis on the Problem List?: No Quality: Stroke Does the patient have a stroke diagnosis?: No Physical Exam Vital Signs: Vital Signs: Last Vital Signs Temp 97.9 F 05/29/23 06:30 Pulse 90 05/29/23 06:30 Resp 16 05/29/23 06:30 BP 126/77 05/29/23 06:30 Pulse Ox 97 05/29/23 06:30 O2 Del Method Room Air 05/29/23 06:30 BMI result Body Mass Index 39.0 DS: Data Data Completed and Pending Labs on day of discharge: Laboratory Results - last 24 hr 05/29/23 06:10 Urine Test NEGATIVE Discharge Plan Discharge Anticipated Discharge Date/Time: 05/30/23 10:43 Patient Disposition: Home, Self-Care Discharge Diagnosis: s/p sleeve gastrectomy Referrals: Physician,Unknown J [Primary Care Provider] - 1 Week Discharge Medications: Continued atorvastatin 10 mg tablet 10 mg PO DAILY Qty: 30 2RF Nexplanon 68 mg implant subdermal pantoprazole 40 mg tablet,delayed release (DR/EC) 40 mg PO DAILY Qty: 90 0RF sucralfate 100 mg/mL suspension 10 ml PO BID Qty: 1200 0RF Rx Instructions: 90-day supply ondansetron 4 mg tablet,disintegrating 4 mg PO Q12H Qty: 20 0RF Rx Instructions: Only take one every 12 hours as needed if you have nausea Discontinued cyanocobalamin (vitamin B-12) 250 mcg tablet 250 mcg PO DAILY Qty: 30 3RF cholecalciferol (vitamin D3) 125 mcg (5,000 unit) capsule 125 mcg PO DAILY Qty: 30 2RF polyethylene glycol 3350 [Miralax] 17 gram powder in packet 17 g PO DAILY Qty: 14 0RF Rx Instructions: Mix each packet with 8oz of water, Crystal light, or Gatorade zero, or Propel and do 7 packets on 05/27/23 and another 7 packets on 05/28/23 Discharge Orders: Discharge Order (Routine); Ordered 05/30/23 Ordered By: Crow Navarro Activity on Discharge: No heavy lifting Stand Alone Forms: Patient Portal Discharge page Care Plan Goals: weight loss Health Concerns: morbid obesity Plan of Treatment: No tub baths, sex or returning to work until discussed at first post op appointment. No exercise, alcohol, tobacco or illegal drug use. Continue to use incentive spirometer hourly while awake. Walk in home for 5- 10 minutes every 2 hours during the first week. Continue phase 1 diet today and start phase 2 diet tomorrow morning. Follow all instructions in the bariatric handbook and call with any questions. 1. Please call your doctor or come back to the emergency room should any new symptoms arise. 2. You will receive a courtesy call from [facility] 24-48 hours after discharge. 3. Activity: abstain from alcohol, practice limited stair climbing, no bending, no driving, no exercise, no illicit substances, no lifting, no sex, no tub bath, no work. 4. Diet: continue as discussed with bariatric team.. 5. Dressing Change/Wound Care: Do not change or remove surgical dressings unless they are wet or soiled. 6. Call your doctor if: - Your temperature exceeds 101.5 F - You experience excessive pain or swelling - You have an unexpected reaction to medication - You have excessive bleeding - You experience continued vomiting/nausea - Your incision begins to separate - Your incision shows signs of infection such as increased redness, swelling, excessive pain, heat, or drainage (light blood or clear fluid is normal) 7. General instructions: No lifting greater than 5 lbs for 1 week and not more than 20lbs the next 3?weeks. No driving until seen at the office in 5-7 days after surgery. If you do not move your bowels in the next 2 days, please tell?Dr. Navarro. Please walk around your home every hour or two to prevent blood clots from forming in your legs. You do not need to wake from sleeping to walk. Please sleep in a bed or couch to prevent kinking at the hips and knees. Please take your incentive spirometer (your lung director public policy) home with you and use it for the next few days to prevent pneumonia. You may shower, no hot tubs, baths or swimming pools.?Please follow the post op diet instructions you are?given by Dr Malinda mejía? and text me daily at 5-6pm for an update.?If you have any issues or concerns or questions please communicate this to him via text.? The Celebrate shakes have all of the bariatric vitamins you need if you consume these shakes. If you are drinking other protein shakes, you will need to purchase the Celebrate multivitamins and calcium that are available in the hospital gift shop on the first floor of the main hospital.??Do not take anything without first discussing with Dr Navarro. Please make sure you are consuming at least 40 ounces of fluids per day starting the?day AFTER your discharge from the hospital. Always drink 1-2 ml per minute using the 5ml?syringe. If you drink faster you may experience?bloating,?gas pain, burping, nausea or heartburn. In that case please slow down your pace and use the syringe to?understand better the?proper?pace and volume of drinking. Do not hesitate to contact the office with any questions at . The patient's medical history has been reviewed and they are considered low risk for post op DVT and therefore DVT prophylaxis is not considered necessary. Travel after surgery was reviewed. The patient has not disclosed any travel plans during the first 30 days after surgery and they have been advised that within the first 30 days after surgery any bus, plane, train or car travel over 2 hours in duration is contraindicated due to the possibility of developing blood clots from immobility. Any travel, needs to include periods of ambulation of 10 minutes in duration every 2 hours. The patient was instructed to discuss any plans for travel during this period with their bariatric surgeon. Assessment: stable, post op sleeve gastrectomy
[2023-05-30] VITALS: BP 122/69; PULSE 95; RESP 18; TEMP 36.4; O2SAT 97
[2023-05-30 03:34] VITALS: BP 128/82; PULSE 88; RESP 18; TEMP 36.1; O2SAT 97
[2023-05-30 07:46] VITALS: BP 139/93; PULSE 78; RESP 16; TEMP 36.9; O2SAT 97
--- NOTE | 2023-05-30 09:13 | MHC.CM.PN ---
pt dcd home no skilled sevices
--- NOTE | 2023-05-30 10:17 | HO.POSTANES ---
Post Anesthesia Evaluation Post Anesthesia Evaluation Date of Service: 05/30/23 Vital Signs: Vital Signs Temp Pulse Resp BP Pulse Ox O2 Del Method 05/30/23 07:46 98.4 F 78 16 139/93 H 97 Room Air 05/30/23 03:34 97 F 88 18 128/82 97 Room Air 05/30/23 00:00 97.5 F 95 18 122/69 97 Room Air Anesthesia: General Endotracheal-GETA Mental Status: Awake Pain Control: Satisfactory Nausea/Vomiting: None Hydration: Adequate Anesthesia-Related Issues: No Anes. Related Issues
== END 2023-05-30 09:15 | disposition home or self-care (01) | DRG 403 ==
LOC: HO.SSSA 07:44 → HO.S3 11:27
PROVIDERS: Admitting Provider Surgery; Visit Provider Surgery
PROC: 0DB64Z3 Excision of Stomach, Percutaneous Endoscopic Approach, Vertical (ICD-10-PCS; CPT 43845; principal; 2023-05-29 07:30)
DX: E66.01 Morbid (severe) obesity due to excess calories (principal); K74.00 Hepatic fibrosis, unspecified; E28.2 Polycystic ovarian syndrome; E78.5 Hyperlipidemia, unspecified; F32.A Depression, unspecified; F41.9 Anxiety disorder, unspecified; K76.0 Fatty (change of) liver, not elsewhere classified; Z68.38 Body mass index [BMI] 38.0-38.9, adult; Z79.899 Other long term (current) drug therapy
CPT/HCPCS: 36415; 80048; 81025; 85014; 85018; 85025; 86850; 86900; 86901; 88304; 88305; 88307; 88342; 99024; A4649; C9145; J0131; J0690; J1100; J1170; J2250; J2405; J2704; J2795; J3010; J3480; J7120

== ENCOUNTER → 2023-05-29 06:18 | Outpatient (BNV) | payer OTHER, SELFPAY | PROVIDERS: Admitting Provider Surgery; Visit Provider Surgery | DX: E66.01 Morbid (severe) obesity due to excess calories (principal); Z68.38 Body mass index [BMI] 38.0-38.9, adult; Z90.3 Acquired absence of stomach [part of]; Z98.84 Bariatric surgery status; K74.00 Hepatic fibrosis, unspecified | CPT/HCPCS: 43659; 43775; 99024 ==

== ENCOUNTER 2023-06-04 12:56 | Outpatient (AMB) | payer OTHER, SELFPAY ==
--- NOTE | 2023-06-04 13:09 | A.OFFVIS_ITS ---
Intake VS Expanded 06/04/23 13:18 BP 126/66 Blood Pressure Location Rt brachial Blood Pressure Position Sitting Pulse 96 Pulse Source Pulse Oximeter Temp 96.1 F L Temperature Source Tympanic Pulse Oximetry 96 Oxygen Delivery Method Room Air Height 5 ft 5 in Weight 217 lb 12.8 oz BMI 36.2 Body Fat % 45.6 Body Fat Mass 99.2 Fat Free Mass 118.4 Visceral Fat Rating 9.0 Body Water % 39.2 Body Water Mass 85.4 Muscle Mass/Score 112.4 Basal Metabolic Rate/Score 1,720 Intake Visit Reasons: (OV) PO LSG 05/29/23 Allergies No Known Allergies Allergy (Verified 06/04/23 13:21) HPI HPI Comments History of Present Illness Details 22 yo woman now 6d s/p LSG, [employer]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 No nausea, emesis, abd pain or reflux. States that she can not tolerate the Celebrate or Orgain shakes, is discussing this with Dr Petty and today will purchase Isopure powder - told she can dilute it with more water to her liking. She has her menses now with very heavy flow and cramping - normally takes ibuprofen, will start 480 mg liquid tylenol every [address] Petty has approveedd her to fly on Jul 03. [facility] Medical History (Updated 05/29/23 @ 07:43 by Crow Navarro MD) Liver fibrosis Steatosis, liver Obesity Anxiety Depression PCOS (polycystic ovarian syndrome) Hyperlipidemia Morbid obesity Surgical History (Updated 05/29/23 @ 09:44 by Cindy Nunez PA-C) Hx of wisdom tooth extraction Social History Household Members: Significant Other Housing: House Are you a primary healthcare science specialist to a significant other at home: No Do you presently have visiting nurse or other home services: No Alcohol intake: never Patient Tobacco Use Status: Never used Tobacco Substance Use Type: Marijuana Physical Exam Vital Signs: Last Vital Signs Temp 96.1 F L 06/04/23 13:18 Pulse 96 06/04/23 13:18 BP 126/66 06/04/23 13:18 Pulse Ox 96 06/04/23 13:18 Oxygen Delivery Method Room Air 06/04/23 13:18 BMI result Body Mass Index 36.2 Const General: cooperative, healthy appearing and no acute distress GI Inspection: Yes incision (all incisions c/d/i with steri strips) Palpation (GI): Soft to palpation, nontender, no hernias and no masses Assessment & Plan Assessment & Plan (1) S/P laparoscopic sleeve gastrectomy: Code(s): Z98.84 - Bariatric surgery status Plan: Pt is stable without post op complications. She will continue to follow meal and exercise plans per Dr Arnol Contreras appt with me in 2 weeks. Coding Level of Care Code Global (38996) Diagnoses S/P laparoscopic sleeve gastrectomy Z98.84
[2023-06-04 13:18] VITALS: BP 126/66; PULSE 96; TEMP 35.6; O2SAT 96; BMI 36.2
== END 2023-06-04 14:32 | disposition home or self-care (01) ==
PROVIDERS: Visit Provider Physician Assistant
DX: Z98.84 Bariatric surgery status (principal)
CPT/HCPCS: 99024

== ENCOUNTER → 2023-06-04 12:56 | Outpatient (BNVA) | payer OTHER, SELFPAY | PROVIDERS: Visit Provider Physician Assistant | DX: Z98.84 Bariatric surgery status (principal) | CPT/HCPCS: 99212 ==

== ENCOUNTER 2023-06-30 10:13 | Outpatient (AMB) | payer OTHER, SELFPAY ==
--- NOTE | 2023-06-30 10:11 | A.OFFVIS_ITS ---
Intake VS Expanded 06/30/23 10:23 BP 138/71 Blood Pressure Location Rt brachial Blood Pressure Position Sitting Pulse 86 Pulse Source Pulse Oximeter Temp 97.2 F Temperature Source Tympanic Pulse Oximetry 93 Oxygen Delivery Method Room Air Height 5 ft 5 in Weight 207 lb 9.6 oz BMI 34.5 Body Fat % 40.7 Body Fat Mass 84.4 Fat Free Mass 123.0 Visceral Fat Rating 7.0 Body Water % 42.7 Body Water Mass 88.6 Muscle Mass/Score 116.8 Basal Metabolic Rate/Score 1,752 Intake Visit Reasons: (OV) PO LSG 05/29/23 Allergies No Known Allergies Allergy (Verified 06/30/23 10:27) Medication List - Last Reconciled 06/30/23 by Cindy Nunez PA-C atorvastatin 10 mg PO DAILY calcium citrate-vitamin D3 315 mg-5 mcg (200 unit) (Calcium Citrate + D) 1 tab PO DAILY etonogestrel (Nexplanon) subdermal qimjpzqcrfan-klw-wslx-FA-vit K 45 mg iron- 800 mcg-120 mcg (Bariatric Multivitamins) caps PO norethindrone (contraceptive) 0.35 mg PO DAILY pantoprazole 40 mg PO DAILY sucralfate 10 mL PO BID HPI HPI Comments 2 History of Present Illness Details Pt is now 4 weeks s/p LSG with Dr Petty. No n/v/, emesis or abd pain. 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 Will be going on vacation later this week - will bring protien bars with her. Meal plan per Dr Petty --3 Zone bars throughout the day. Starting at 9am - finishes at 11 pm. She does not feel that she needs any changes now. Treadmill 5d/ week - 350 calories. speed 3.0, incline 4 - 12 or stays at 12. [facility] Medical History (Updated 06/07/23 @ 00:03 by Background Beverly) Vitamin B12 deficiency Vitamin D deficiency Liver fibrosis Steatosis, liver Obesity Anxiety Depression PCOS (polycystic ovarian syndrome) Hyperlipidemia Morbid obesity Surgical History (Updated 06/30/23 @ 10:28 by Graciela Dias CMA) Hx of laparoscopic partial gastrectomy Hx of wisdom tooth extraction Social History Household Members: Significant Other Housing: House Are you a primary special needs child caregiver to a significant other at home: No Do you presently have visiting nurse or other home services: No Alcohol intake: never Patient Tobacco Use Status: Never used Tobacco Substance Use Type: Marijuana Physical Exam Vital Signs: Last Vital Signs Temp 97.2 F 06/30/23 10:23 Pulse 86 06/30/23 10:23 BP 138/71 06/30/23 10:23 Pulse Ox 93 06/30/23 10:23 Oxygen Delivery Method Room Air 06/30/23 10:23 BMI result Body Mass Index 34.5 GI Inspection: Yes incision (all completely healed) Assessment & Plan Assessment & Plan (1) S/P laparoscopic sleeve gastrectomy: Code(s): Z98.84 - Bariatric surgery status Plan: Has now started bariatric MVI. I have ordered Calcium and Vit D bid now. No changes made to meal plan per pt request. Exerise - will increase treadmill to 400 calories now, always changing incline. Will walk 15 minute mile for 3 miles daily while on vacation. Next appt with me in 4 weeks. Pt told to discuss atorvastatin and refills with her PCP. . Medications: New calcium citrate-vitamin D3 315 mg-5 mcg (200 unit) (Calcium Citrate + D) 1 tab PO BID 180 tabs 3RF Coding Level of Care Code Global (02176) Diagnoses S/P laparoscopic sleeve gastrectomy Z98.84
[2023-06-30 10:23] VITALS: BP 138/71; PULSE 86; TEMP 36.2; O2SAT 93; BMI 34.5
== END 2023-06-30 10:50 | disposition home or self-care (01) ==
PROVIDERS: Visit Provider Physician Assistant
DX: Z98.84 Bariatric surgery status (principal)
CPT/HCPCS: 99024

== ENCOUNTER → 2023-06-30 10:13 | Outpatient (BNVA) | payer OTHER, SELFPAY | PROVIDERS: Visit Provider Physician Assistant | DX: Z98.84 Bariatric surgery status (principal) | CPT/HCPCS: 99212 ==

== ENCOUNTER 2023-08-01 10:25 | Outpatient (AMB) | payer OTHER, SELFPAY ==
--- NOTE | 2023-08-01 10:08 | MHC.OFFVISWM ---
Intake VS Expanded 08/01/23 10:13 Height 5 ft 5 in Weight 197 lb BMI 32.8 Intake Visit Reasons: VIDEO PO LSG 05/29/23 Allergies No Known Allergies Allergy (Verified 06/30/23 10:27) Medication List - Last Reconciled 08/01/23 by Cindy Nunez PA-C calcium citrate-vitamin D3 315 mg-5 mcg (200 unit) (Calcium Citrate + D) 1 tab PO BID etonogestrel (Nexplanon) subdermal hslkhpbbkodv-ljk-qsap-FA-vit K 45 mg iron- 800 mcg-120 mcg (Bariatric Multivitamins) caps PO norethindrone (contraceptive) 0.35 mg PO DAILY pantoprazole 40 mg PO DAILY sucralfate 10 mL PO BID HPI HPI Comments History of Present Illness Details 9 weeks post op LSG. No n/v/abd pain or reflux. Having heavy menses - has appt with gym this week. TBWL is 54.2 lbs or 21.6%. Meal plan per Dr Petty- states does not need any changes 8-9 am - starts bar over 2 hours 12 pm - bar over 2 hours 6-7 pm- 4 forks protien and 2 forks vegetable 9-10 pm- another bar over 2 hours Exercise - 5d/ week - treadmill and bike - will start for 500 calories in total per day -- has been burning 350 - 400 per session. Wants to start weights. [facility] Medical History (Updated 08/01/23 @ 10:15 by DELANEY Marti-C) Obesity Vitamin B12 deficiency Vitamin D deficiency Liver fibrosis Steatosis, liver Anxiety Depression PCOS (polycystic ovarian syndrome) Hyperlipidemia Morbid obesity Surgical History (Updated 06/30/23 @ 10:28 by Graciela Dias CMA) Hx of laparoscopic partial gastrectomy Hx of wisdom tooth extraction Social History Household Members: Significant Other Housing: House Are you a primary home health care case manager to a significant other at home: No Do you presently have visiting nurse or other home services: No Alcohol intake: never Patient Tobacco Use Status: Never used Tobacco Substance Use Type: Marijuana Assessment & Plan Assessment & Plan (1) Obesity: Code(s): E66.9 - Obesity, unspecified Qualifiers: Obesity type: due to excess calories Obesity classification: adult class 2 (BMI 35 - 39.9) Serious obesity comorbidity presence: with serious comorbidity Body mass index: BMI 38.0-38.9 Qualified Code(s): E66.01 - Morbid (severe) obesity due to excess calories; Z68.38 - Body mass index [BMI] 38.0-38.9, adult Plan: Now 9 weeks post op doing great, no changes to meal plan per patient request. Exercise - now will burn 500 calories on treadmill 5d/ week. Will start ST now 3d/week. UE - 3 machines 20 lbs, LE - 40 lbs and Abd - 20 lbs. 3 sets of 15 each. Work with epic trainer - planks and squats. Will stop pantoprazole and sucralfate when completed this month. Next appt 4 weeks with PA (2) S/P laparoscopic sleeve gastrectomy: Code(s): Z98.84 - Bariatric surgery status Plan: see above Telehealth Telehealth Location of provider rendering services: practice address Location of patient: address on file Patient Identification confirmed using: Name, : Yes Telehealth method: video Patient verbally consented to treatment: Yes Patient verbally consented to billing insurance company: Yes Patient informed of any privacy concerns related to visit: Yes Coding Level of Care Code Global (26151) Diagnoses Class 2 severe obesity due to excess calories with serious comorbidity and body mass index (BMI) of 38.0 to 38.9 in adult E66.01; Z68.38 Obesity type: due to excess calories Obesity classification: adult class 2 (BMI 35 - 39.9) Serious obesity comorbidity presence: with serious comorbidity Body mass index: BMI 38.0-38.9 S/P laparoscopic sleeve gastrectomy Z98.84
[2023-08-01 10:13] VITALS: BMI 32.8
== END 2023-08-01 10:26 | disposition home or self-care (01) ==
LOC: HO.HBS 10:25
PROVIDERS: Visit Provider Physician Assistant
DX: E66.01 Morbid (severe) obesity due to excess calories (principal); Z68.38 Body mass index [BMI] 38.0-38.9, adult; Z98.84 Bariatric surgery status
CPT/HCPCS: 99024

== ENCOUNTER → 2023-08-01 10:25 | Outpatient (BNVA) | payer OTHER, SELFPAY | PROVIDERS: Visit Provider Physician Assistant | DX: E66.01 Morbid (severe) obesity due to excess calories (principal); Z68.32 Body mass index [BMI] 32.0-32.9, adult; Z98.84 Bariatric surgery status | CPT/HCPCS: 99212 ==

== ENCOUNTER 2023-08-27 09:24 | Outpatient (AMB) | payer OTHER, SELFPAY ==
--- NOTE | 2023-08-27 08:38 | MHC.OFFVISWM ---
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 Presents for 3 month post op visit. Weight today is 189.8 pounds, with a BMI of 31.6. There has been a 61.4 pound weight loss,(initial weight 251.2 pounds) since starting the program on 01/20/2023 reflecting a 24.4 % total body weight loss and a weight loss of 42.8 pounds since surgery (operative weight 232.6 pounds) reflecting a 18.4 % TBWL since surgery. No complaints of nausea, emesis, abdominal pain or reflux. Reports infrequent but normal bowel movements every 2 days and uses stool softeners regularly. Likes current plan Present meal plan includes: ZP bar 9-11, 1-3 meal 5 pm 4 forks protein and 2 forks veg ZP bar 7-9p drinkin-40 oz water ? Exercise routine includes: 5 x per week 500 calories between treadmill or stairmaaster., weights PFSH Medical History (Updated 08/01/23 @ 10:15 by Cindy Nunez PA-C) Obesity Vitamin B12 deficiency Vitamin D deficiency Liver fibrosis Steatosis, liver Anxiety Depression PCOS (polycystic ovarian syndrome) Hyperlipidemia Morbid obesity Surgical History (Updated 06/30/23 @ 10:28 by Graciela Dias CMA) Hx of laparoscopic partial gastrectomy Hx of wisdom tooth extraction Social History Household Members: Significant Other Housing: House Are you a primary career information specialist to a significant other at home: No Do you presently have visiting nurse or other home services: No Alcohol intake: never Patient Tobacco Use Status: Never used Tobacco Substance Use Type: Marijuana Assessment & Plan Assessment & Plan (1) Obesity: Code(s): E66.9 - Obesity, unspecified Qualifiers: Obesity type: due to excess calories Obesity classification: adult class 2 (BMI 35 - 39.9) Serious obesity comorbidity presence: with serious comorbidity Body mass index: BMI 38.0-38.9 Qualified Code(s): E66.01 - Morbid (severe) obesity due to excess calories; Z68.38 - Body mass index [BMI] 38.0-38.9, adult Plan: Patient is making good progress. Discussed changing her multivitamin to have right after dinner to avoid nausea. If this is still a problem for her consider switching to a chewable multivitamin. Continue current meal plan. Increase water intake to 48 to 60 oz of water. Continue exercise regimen. Encouraged weightlifting then cardio but not at the expense of cardio Return to the office 1 month. Telehealth Telehealth Location of provider rendering services: practice address Location of patient: address on file Patient Identification confirmed using: Name, : Yes Telehealth method: voice only Patient verbally consented to treatment: Yes Patient verbally consented to billing insurance company: Yes Patient informed of any privacy concerns related to visit: Yes Minutes spent on Phone/Video with Pt.: 15 Coding Level of Care Code Global (46607) Diagnoses Class 2 severe obesity due to excess calories with serious comorbidity and body mass index (BMI) of 38.0 to 38.9 in adult E66.01; Z68.38 Obesity type: due to excess calories Obesity classification: adult class 2 (BMI 35 - 39.9) Serious obesity comorbidity presence: with serious comorbidity Body mass index: BMI 38.0-38.9
[2023-08-27 08:39] VITALS: BMI 31.6
== END 2023-08-27 09:27 | disposition home or self-care (01) ==
LOC: HO.HBS 09:24
PROVIDERS: Visit Provider Physician Assistant Surgical
DX: E66.01 Morbid (severe) obesity due to excess calories (principal); Z68.38 Body mass index [BMI] 38.0-38.9, adult
CPT/HCPCS: 99024

== ENCOUNTER → 2023-08-27 09:24 | Outpatient (BNVA) | payer OTHER, SELFPAY | PROVIDERS: Visit Provider Physician Assistant Surgical | DX: E66.01 Morbid (severe) obesity due to excess calories (principal); Z71.3 Dietary counseling and surveillance; Z68.38 Body mass index [BMI] 38.0-38.9, adult; Z98.84 Bariatric surgery status | CPT/HCPCS: 99212 ==

== ENCOUNTER 2023-10-01 09:18 | Outpatient (AMB) | payer OTHER, SELFPAY ==
[2023-10-01 09:10] VITALS: BMI 29.5
--- NOTE | 2023-10-01 09:10 | A.OFFVIS_ITS ---
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 Presents for 4 month post op visit. Weight today is 177.4 pounds, with a BMI of 29.5. There has been a 73.8 pound weight loss,(initial weight 251.2 pounds) since starting the program on 01/20/2023 reflecting a 29.3 % total body weight loss and a weight loss of 55.2 pounds since surgery (operative weight 232.6 pounds) reflecting a 23.7 % TBWL since surgery. No complaints of nausea, emesis, abdominal pain or reflux. Reports infrequent but normal bowel movements every 2 days and uses stool softeners regularly. She is having hair loss Likes current plan Present meal plan includes: ZP bar 9-11, 1-3 meal 5 pm 4 forks protein and 2 forks veg ZP bar 7-9p drinkin oz water ? Exercise routine includes: 5 x per week 500 calories between treadmill or stairmaaster., weights PFSH Medical History (Updated 08/01/23 @ 10:15 by Cindy Nunez PA-C) Obesity Vitamin B12 deficiency Vitamin D deficiency Liver fibrosis Steatosis, liver Anxiety Depression PCOS (polycystic ovarian syndrome) Hyperlipidemia Morbid obesity Surgical History (Updated 06/30/23 @ 10:28 by Graciela Dias CMA) Hx of laparoscopic partial gastrectomy Hx of wisdom tooth extraction Social History Household Members: Significant Other Housing: House Are you a primary care support representative to a significant other at home: No Do you presently have visiting nurse or other home services: No Alcohol intake: never Patient Tobacco Use Status: Never used Tobacco Substance Use Type: Marijuana Telehealth Telehealth Telehealth Platform: Telephone Location of provider rendering services: practice address Location of patient: address on file Patient Identification confirmed using: Name, : Yes Telehealth method: voice only Patient verbally consented to treatment: Yes Patient verbally consented to billing insurance company: Yes Patient informed of any privacy concerns related to visit: Yes Minutes spent on Phone/Video with Pt.: 15 Assessment & Plan Assessment & Plan (1) S/P laparoscopic sleeve gastrectomy: Code(s): Z98.84 - Bariatric surgery status Category: Surgical Plan: Wants to make changes to have more food ZP bar 9-11 meal 4 forks protein, 4 forks veg meal 5 pm 6 forks protein and 6 forks veg 1/2 c fresh fruit7-9p Return to clinic in 1 month and then 1 month after that for her six-month follow-up, check labs at 6 months. She has been complaining of hair loss. She has continued her multivitamin, calcium plus D as well as a hair, skin, nails supplement.
== END 2023-10-01 09:29 | disposition home or self-care (01) ==
LOC: HO.HBS 09:18
PROVIDERS: Visit Provider Physician Assistant Surgical
DX: E66.3 Overweight (principal); Z68.29 Body mass index [BMI] 29.0-29.9, adult; Z90.3 Acquired absence of stomach [part of]; Z98.84 Bariatric surgery status
CPT/HCPCS: 99213

== ENCOUNTER → 2023-10-01 09:18 | Outpatient (BNVA) | payer OTHER, SELFPAY | PROVIDERS: Visit Provider Physician Assistant Surgical ==

== ENCOUNTER 2023-11-05 09:50 | Outpatient (AMB) | payer OTHER, SELFPAY ==
--- NOTE | 2023-11-05 09:30 | A.OFFVIS_ITS ---
VS Expanded 11/05/23 09:31 Height 5 ft 5 in Weight 168 lb 12.8 oz BMI 28.1 Body Fat % 32.2 Body Fat Mass 54.3 Fat Free Mass 114.4 Visceral Fat Rating 11 Body Water % 46.5 Body Water Mass 78.5 Muscle Mass/Score 107.4 Basal Metabolic Rate/Score 1,500 Intake Visit Reasons: (TV) PO LSG 05/29/23 Allergies No Known Allergies Allergy (Verified 06/30/23 10:27) HPI Comments Details: This?a?22?yo female who is s/p LSG without hiatal hernia repair on?05/29/2023. Presents for 5 month post op visit. Weight today is 168.8 pounds, with a BMI of 28.1. There has been a 82.4 pound weight loss,(initial weight 251.2 pounds) since starting the program on 01/20/2023 reflecting a 32.8 % total body weight loss and a weight loss of 63.8 pounds since surgery (operative weight 232.6 pounds) reflecting a 27.4 % TBWL since surgery. No complaints of nausea, emesis, abdominal pain or reflux. Reports infrequent but normal bowel movements every 2-3 days and uses stool softeners regularly. She is having hair loss. She has noticed no sig weight loss over the last 2 weeks. She states that when she gets busy at work she would skip her meal at lunch 3-4 days per week. Cannot and will not do protein shakes Likes current plan Present meal plan includes: ZP bar 9-11 meal 4 forks protein, 4 forks veg meal 5 pm 6 forks protein and 6 forks veg 1/2 c fresh fruit7-9p drinkin-40 oz water ? Exercise routine includes: 5 x per week 500 calories between treadmill or stairmaaster., stationary bike and weights [facility] Medical History (Updated 08/01/23 @ 10:15 by Cindy Nunez PA-C) Obesity Vitamin B12 deficiency Vitamin D deficiency Liver fibrosis Steatosis, liver Anxiety Depression PCOS (polycystic ovarian syndrome) Hyperlipidemia Morbid obesity Surgical History (Updated 06/30/23 @ 10:28 by Graciela Dias CMA) Hx of laparoscopic partial gastrectomy Hx of wisdom tooth extraction Social History Household Members: Significant Other Housing: House Are you a primary school child care attendant to a significant other at home: No Do you presently have visiting nurse or other home services: No Alcohol intake: never Patient Tobacco Use Status: Never used Tobacco Substance Use Type: Marijuana Physical Exam Vital Signs: BMI result Body Mass Index 28.1 Telehealth Telehealth Telehealth Platform: Telephone Location of provider rendering services: practice address Location of patient: address on file Patient Identification confirmed using: Name, : Yes Telehealth method: voice only Patient verbally consented to treatment: Yes Patient verbally consented to billing insurance company: Yes Patient informed of any privacy concerns related to visit: Yes Minutes spent on Phone/Video with Pt.: 15 Assessment & Plan Assessment & Plan (1) S/P laparoscopic sleeve gastrectomy: Code(s): Z98.84 - Bariatric surgery status Category: Surgical Plan: Overall, patient is doing fairly well. She was encouraged to not skip meals. She will try to have her day start with a meal of 4 forks protein and 4 forks veggies followed by her bar and another meal in the evening. Additionally encouraged her to take her multivitamin daily. Encouraged her to text weekly with her weights and if any questions or concerns. She will follow up in the office in approximately 1 month.
[2023-11-05 09:31] VITALS: BMI 28.1
== END 2023-11-05 09:54 | disposition home or self-care (01) ==
LOC: HO.HBS 09:50
PROVIDERS: Visit Provider Physician Assistant Surgical
DX: E66.3 Overweight (principal); Z68.28 Body mass index [BMI] 28.0-28.9, adult; Z90.3 Acquired absence of stomach [part of]; Z98.84 Bariatric surgery status
CPT/HCPCS: 99213

== ENCOUNTER → 2023-11-05 09:50 | Outpatient (BNVA) | payer OTHER, SELFPAY | PROVIDERS: Visit Provider Physician Assistant Surgical ==

== ENCOUNTER 2024-01-05 13:56 | Outpatient (AMB) | payer OTHER, SELFPAY ==
--- NOTE | 2024-01-05 14:03 | A.OFFVIS_ITS ---
VS Expanded 01/05/24 14:11 BP 115/72 Blood Pressure Location Rt brachial Blood Pressure Position Sitting Pulse 66 Pulse Source Pulse Oximeter Temp 97.8 F Temperature Source Temporal Artery Scan Pulse Oximetry 98 Oxygen Delivery Method Room Air Height 5 ft 5 in Weight 154 lb BMI 25.6 Body Fat % 27.4 Body Fat Mass 42.2 Fat Free Mass 111.8 Visceral Fat Rating 2.0 Body Water % 52.3 Body Water Mass 80.4 Muscle Mass/Score 106.0 Basal Metabolic Rate/Score 1,538 Intake Visit Reasons: PO LSG 05/29/23 Allergies No Known Allergies Allergy (Verified 01/05/24 14:04) HPI Comments Details: This?a?23?yo female who is s/p LSG without hiatal hernia repair on?05/29/2023. Presents for 7 month post op visit. Weight today is 154 pounds, with a BMI of 25.6. There has been a 97.2 pound weight loss,(initial weight 251.2 pounds) since starting the program on 01/20/2023 reflecting a 38.6 % total body weight loss and a weight loss of 78.6 pounds since surgery (operative weight 232.6 pounds) reflecting a 33.7 % TBWL since surgery. No complaints of nausea, emesis, abdominal pain or reflux. Reports difficulty with constipation. She is no longer skipping meals. Following the meal plan. Feels great. Likes current plan Present meal plan includes: meal 4 forks protein, 4 forks veg ZP bar 9-11 meal 6 forks protein, 6 forks veg 1/2 c fresh fruit 7-9p drinkin oz water ? Exercise routine includes: 5 x per week 300 calories between treadmill or stairmaaster., stationary bike and weights [facility] Medical History Obesity Vitamin B12 deficiency Vitamin D deficiency Liver fibrosis Steatosis, liver Anxiety Depression PCOS (polycystic ovarian syndrome) Hyperlipidemia Morbid obesity Surgical History Hx of laparoscopic partial gastrectomy Hx of wisdom tooth extraction Social History Household Members: Significant Other Housing: House Are you a primary hospice care consultant to a significant other at home: No Do you presently have visiting nurse or other home services: No Alcohol intake: never Patient Tobacco Use Status: Never used Tobacco Substance Use Type: Marijuana Physical Exam Const General: cooperative and no acute distress Orientation/consciousness: patient oriented x3 Resp Effort & Inspection: normal respiratory effort Auscultation: clear to auscultation bilaterally Cardio Rate: regular rate Rhythm: regular rhythm GI Inspection: Yes normal to inspection and Yes incision (well healed) Palpation (GI): Soft to palpation and no masses Neuro General: patient oriented x3 Assessment & Plan Assessment & Plan (1) S/P laparoscopic sleeve gastrectomy: Code(s): Z98.84 - Bariatric surgery status Category: Surgical Plan: Overall, patient is doing fairly well. We will order six-month postop labs. She will continue her current meal plan. She certainly may expand her morning meal to 6 forks protein and 6 of veggies if she wishes. Encouraged to continue cardio at the gym. Regarding her constipation, we will add senna, 2 tabs at bedtime. Given her recent travel to [place] and constipation at that time with very difficult bowel movement requiring enema, I have sent in a prescription for Dulcolax suppository if needed. Return to the office 4 weeks. Orders: Orders Complete Blood Count Auto Diff Today E78.5 - Hyperlipidemia, unspecified, K74.00 - Hepatic fibrosis, unspecified, Z98.84 - Bariatric surgery status Vitamin B12 and Folate Today E78.5 - Hyperlipidemia, unspecified, K74.00 - Hepatic fibrosis, unspecified, Z98.84 - Bariatric surgery status C Reactive Protein Today E78.5 - Hyperlipidemia, unspecified, K74.00 - Hepatic fibrosis, unspecified, Z98.84 - Bariatric surgery status Insulin Today E78.5 - Hyperlipidemia, unspecified, K74.00 - Hepatic fibrosis, unspecified, Z98.84 - Bariatric surgery status Hemoglobin A1c Today E78.5 - Hyperlipidemia, unspecified, K74.00 - Hepatic fibrosis, unspecified, Z98.84 - Bariatric surgery status Lipid Panel Today E78.5 - Hyperlipidemia, unspecified, K74.00 - Hepatic fibrosis, unspecified, Z98.84 - Bariatric surgery status IRON PROFILE Today E78.5 - Hyperlipidemia, unspecified, K74.00 - Hepatic fibrosis, unspecified, Z98.84 - Bariatric surgery status Comprehensive Met. Panel Today E78.5 - Hyperlipidemia, unspecified, K74.00 - Hepatic fibrosis, unspecified, Z98.84 - Bariatric surgery status Zinc Today E78.5 - Hyperlipidemia, unspecified, K74.00 - Hepatic fibrosis, unspecified, Z98.84 - Bariatric surgery status Vitamin B1 Today E78.5 - Hyperlipidemia, unspecified, K74.00 - Hepatic fibrosis, unspecified, Z98.84 - Bariatric surgery status Vitamin A Today E78.5 - Hyperlipidemia, unspecified, K74.00 - Hepatic fibrosis, unspecified, Z98.84 - Bariatric surgery status TSH reflex Free T4 Today E78.5 - Hyperlipidemia, unspecified, K74.00 - Hepatic fibrosis, unspecified, Z98.84 - Bariatric surgery status Ferritin Today E78.5 - Hyperlipidemia, unspecified, K74.00 - Hepatic fibrosis, unspecified, Z98.84 - Bariatric surgery status Vitamin D 25-OH Total Today E78.5 - Hyperlipidemia, unspecified, K74.00 - Hepatic fibrosis, unspecified, Z98.84 - Bariatric surgery status Medications: New sennosides (senna) 17.2 mg (2 x 8.6 mg) PO BEDTIME 90 tabs 2RF constipation bisacodyl (Dulcolax (bisacodyl)) 10 mg MI DAILY PRN 12 ea 0RF constipation
[2024-01-05 14:11] VITALS: BP 115/72; PULSE 66; TEMP 36.6; O2SAT 98; BMI 25.6
== END 2024-01-05 14:33 | disposition home or self-care (01) ==
PROVIDERS: Visit Provider Physician Assistant Surgical
DX: K59.00 Constipation, unspecified (principal); Z90.3 Acquired absence of stomach [part of]; Z98.84 Bariatric surgery status
CPT/HCPCS: 99214

== ENCOUNTER → 2024-01-05 13:56 | Outpatient (BNVA) | payer OTHER, SELFPAY | PROVIDERS: Visit Provider Physician Assistant Surgical | DX: Z98.84 Bariatric surgery status (principal) | CPT/HCPCS: 99212 ==

== ENCOUNTER 2024-02-05 15:23 | Outpatient (AMB) | payer OTHER, SELFPAY ==
[2024-02-05 13:06] VITALS: BMI 25.1
--- NOTE | 2024-02-05 13:06 | MHC.OFFVISWM ---
VS Expanded 02/05/24 13:06 Height 5 ft 5 in Weight 151 lb BMI 25.1 Body Fat % 27.6 Body Fat Mass 41.6 Fat Free Mass 109.2 Visceral Fat Rating 8 Body Water % 49.7 Body Water Mass 75 Muscle Mass/Score 102.8 Basal Metabolic Rate/Score 1,431 Intake Visit Reasons: (TV) PO LSG 05/29/23 Electrical Solderer Required: No Allergies No Known Allergies Allergy (Verified 01/05/24 14:04) Medication List - Last Reconciled 02/05/24 by DELANEY Obrien bisacodyl (Dulcolax (bisacodyl)) 10 mg NE DAILY PRN calcium citrate-vitamin D3 315 mg-5 mcg (200 unit) (Calcium Citrate + D) 1 tab PO BID etonogestrel (Nexplanon) subdermal qdakuldkgqbu-vxf-etvh-FA-vit K 45 mg iron- 800 mcg-120 mcg (Bariatric Multivitamins) caps PO norethindrone-ethin estradiol 0.5-35 mg-mcg (Nortrel) 1 tab PO DAILY sennosides (senna) 17.2 mg (2 x 8.6 mg) PO BEDTIME HPI Comments Details: This?a?23?yo female who is s/p LSG without hiatal hernia repair on?05/29/2023. Presents for 8 month post op visit. Weight today is 151 pounds, with a BMI of 25.1. There has been a 100.2 pound weight loss,(initial weight 251.2 pounds) since starting the program on 01/20/2023 reflecting a 39.8 % total body weight loss and a weight loss of 81.6 pounds since surgery (operative weight 232.6 pounds) reflecting a 35 % TBWL since surgery. No complaints of nausea, emesis, abdominal pain or reflux. Reports difficulty with constipation. She is no longer skipping meals. Following the meal plan. Feels great. She states she gets a rash to the skin folds with increased exercise and activity. She has itching but has't noticed rashes Likes current plan Present meal plan includes: meal 4 forks protein, 4 forks veg ZP bar 9-11 meal 8 forks protein, 8 forks veg 1/2 c fresh fruit 7-9p drinkin oz water ? Exercise routine includes: 5 x per week 300 calories between treadmill or stairmaster., stationary bike and strength training PFSH Medical History Obesity Vitamin B12 deficiency Vitamin D deficiency Liver fibrosis Steatosis, liver Anxiety Depression PCOS (polycystic ovarian syndrome) Hyperlipidemia Morbid obesity Surgical History Hx of laparoscopic partial gastrectomy Hx of wisdom tooth extraction Social History Household Members: Significant Other Housing: House Are you a primary ambulatory care coordinator to a significant other at home: No Do you presently have visiting nurse or other home services: No Alcohol intake: never Patient Tobacco Use Status: Never used Tobacco Substance Use Type: Marijuana Telehealth Telehealth Telehealth Platform: Telephone Location of provider rendering services: practice address Location of patient: address on file Patient Identification confirmed using: Name, : Yes Telehealth method: voice only Patient verbally consented to treatment: Yes Patient verbally consented to billing insurance company: Yes Patient informed of any privacy concerns related to visit: Yes Minutes spent on Phone/Video with Pt.: 10 Assessment & Plan Assessment & Plan (1) S/P laparoscopic sleeve gastrectomy: Code(s): Z98.84 - Bariatric surgery status Category: Surgical Plan: Patient is doing very well, achieved a healthy weight, incorporated weight training, feeling strong and very happy with her outcome. Recommend continue current meal plan, continue communication. We will follow up in the office in approximately 2 months
== END 2024-02-05 15:23 | disposition home or self-care (01) ==
LOC: HO.HBS 15:23
PROVIDERS: Visit Provider Physician Assistant Surgical
DX: E66.3 Overweight (principal); Z68.25 Body mass index [BMI] 25.0-25.9, adult; Z90.3 Acquired absence of stomach [part of]; Z98.84 Bariatric surgery status
CPT/HCPCS: 99213

== ENCOUNTER → 2024-02-05 15:23 | Outpatient (BNVA) | payer OTHER, SELFPAY | PROVIDERS: Visit Provider Physician Assistant Surgical ==

== ENCOUNTER 2024-04-08 09:00 | Outpatient (AMB) | payer OTHER, SELFPAY ==
[2024-04-08 08:46] VITALS: BMI 23.1
--- NOTE | 2024-04-08 08:46 | MHC.OFFVISWM ---
VS Expanded 04/08/24 08:46 Height 5 ft 5 in Weight 139 lb 2 oz BMI 23.1 Body Fat % 24.5 Fat Free Mass 105.2 Visceral Fat Rating 6 Body Water % 51.8 Muscle Mass/Score 98.8 Basal Metabolic Rate/Score 1,392 Intake Visit Reasons: (TV) PO LSG 05/29/23 Allergies No Known Allergies Allergy (Verified 01/05/24 14:04) HPI Comments Details: This?a?23?yo female who is s/p LSG without hiatal hernia repair on?05/29/2023. Presents for 10 month post op visit. Weight today is 139.2 pounds, with a BMI of 23.2. There has been a 112 pound weight loss,(initial weight 251.2 pounds) since starting the program on 01/20/2023 reflecting a 44.5 % total body weight loss and a weight loss of 93.4 pounds since surgery (operative weight 232.6 pounds) reflecting a 40.1 % TBWL since surgery. No complaints of nausea, emesis, abdominal pain or reflux. Reports difficulty with constipation. She is no longer skipping meals. Following the meal plan. Feels great. She states she gets a rash to the skin folds with increased exercise and activity, especially under the abdominal pannus. She has itching and rash intermittently, 2-3 x per month, lasting 2-3 days treated with lotion and extra hygiene Likes current plan Present meal plan includes: meal 4 forks protein, 4 forks veg ZP bar 9-11 meal 8 forks protein, 8 forks veg 1/2 c fresh fruit 7-9p drinkin oz water ? Exercise routine includes: 5 x per week 350 calories between treadmill or stairmaster., stationary bike and strength training [facility] Medical History Obesity Vitamin B12 deficiency Vitamin D deficiency Liver fibrosis Steatosis, liver Anxiety Depression PCOS (polycystic ovarian syndrome) Hyperlipidemia Morbid obesity Surgical History Hx of laparoscopic partial gastrectomy Hx of wisdom tooth extraction Social History Household Members: Significant Other Housing: House Are you a primary career development counselor to a significant other at home: No Do you presently have visiting nurse or other home services: No Alcohol intake: never Patient Tobacco Use Status: Never used Tobacco Substance Use Type: Marijuana Physical Exam Vital Signs: BMI result Body Mass Index 23.1 Telehealth Telehealth Telehealth Platform: Telephone Location of provider rendering services: practice address Location of patient: address on file Patient Identification confirmed using: Name, : Yes Telehealth method: voice only Patient verbally consented to treatment: Yes Patient verbally consented to billing insurance company: Yes Patient informed of any privacy concerns related to visit: Yes Minutes spent on Phone/Video with Pt.: 20 Assessment & Plan Assessment & Plan (1) S/P laparoscopic sleeve gastrectomy: Code(s): Z98.84 - Bariatric surgery status Category: Surgical Plan: Patient has done excellent. She has achieved a healthy weight. She continues to exercise regularly in following her meal plan. She wishes to continue her current meal plan. Reminded to get her labs done which were ordered in December. She will return to the office as scheduled. Regarding her complaints of abdominal panniculitis, clotrimazole cream has been sent in with instructions. She has had tremendous weight loss and will need medically necessary skin removal surgery in the future. We will continue to follow clinically. Medications: New clotrimazole 1% (Antifungal (clotrimazole)) 1 appl topical BID 45 grams 2RF
== END 2024-04-08 09:36 | disposition home or self-care (01) ==
LOC: HO.HBS 09:32
PROVIDERS: Visit Provider Physician Assistant Surgical
DX: Z71.3 Dietary counseling and surveillance (principal); Z90.3 Acquired absence of stomach [part of]; Z98.84 Bariatric surgery status
CPT/HCPCS: 99213; G2211

== ENCOUNTER 2024-06-14 13:26 | Outpatient (AMB) | payer OTHER, SELFPAY ==
--- NOTE | 2024-06-14 13:31 | A.OFFVIS_ITS ---
VS Expanded 06/14/24 13:35 BP 110/60 Blood Pressure Location Rt brachial Blood Pressure Position Sitting Pulse 65 Pulse Source Pulse Oximeter Temp 97.9 F Temperature Source Temporal Artery Scan Pulse Oximetry 98 Oxygen Delivery Method Room Air Height 5 ft 5 in Weight 136 lb BMI 22.6 Body Fat % 22.2 Body Fat Mass 30.2 Fat Free Mass 105.6 Visceral Fat Rating 1.0 Body Water % 56.0 Body Water Mass 76.0 Muscle Mass/Score 100.4 Basal Metabolic Rate/Score 1,443 Intake Visit Reasons: (OV) PO LSG 05/29/23 Allergies No Known Allergies Allergy (Verified 06/14/24 13:33) HPI Comments Details: This?a?23?yo female who is s/p LSG without hiatal hernia repair on?05/29/2023. Presents for 1 year post op visit. Weight today is 136 pounds, with a BMI of 22.6. There has been a 115.2 pound weight loss,(initial weight 251.2 pounds) since starting the program on 01/20/2023 reflecting a 45.8 % total body weight loss and a weight loss of 96.6 pounds since surgery (operative weight 232.6 pounds) reflecting a 41.5 % TBWL since surgery. No complaints of nausea, emesis, abdominal pain or reflux. Reports constipation resolved. She is no longer skipping meals. Following the meal plan. Feels great. She states she gets a rash to the skin folds with increased exercise and activity, especially under the abdominal pannus. She has itching and rash intermittently, 2-3 x per month she was prescribed clotrimazole at her last appointment, this has improved but not resolved her recurrent rash Likes current plan Present meal plan includes: meal 6 forks protein, 6 forks veg ZP bar 9-11 meal 6 forks protein, 6 forks veg 1/2 c fresh fruit 7-9p drinkin oz water ?Exercise routine includes: 30 min cardio, 30 min weights Any post op complications: none JAYLIN: never DM: never HTN: never Hyperlipidemia: improved GERD:?0-5 scale ??0 = no symptoms ??1 = symptoms noticeable but not bothersome 2 =symptoms bothersome but not daily ? 3 = symptoms bothersome and daily 4 = symptoms affect daily activities 5 = symptoms are incapacitating, unable to do daily activities ? How bad is the heartburn: 0 ? Heartburn while lying down: 0 ? Heartburn when standing up: 0 ? Heartburn after meals: 0 ? Does heartburn change your diet: 0 ? Does heartburn wake you up from sleep: 0 ? Do you have difficulty swallowin ? Do you have pain with swallowin ? If you take medicine for your reflux, does this affect your daily life: 0 Satisfaction with present condition - satisfied or not satisfied: satisfied [facility] Medical History Obesity Vitamin B12 deficiency Vitamin D deficiency Liver fibrosis Steatosis, liver Anxiety Depression PCOS (polycystic ovarian syndrome) Hyperlipidemia Morbid obesity Surgical History Hx of laparoscopic partial gastrectomy Hx of wisdom tooth extraction Social History Household Members: Significant Other Housing: House Are you a primary rn care manager to a significant other at home: No Do you presently have visiting nurse or other home services: No Alcohol intake: never Patient Tobacco Use Status: Never used Tobacco Substance Use Type: Marijuana Physical Exam Const General: cooperative and no acute distress Orientation/consciousness: patient oriented x3 Resp Effort & Inspection: normal respiratory effort Auscultation: clear to auscultation bilaterally Cardio Rate: regular rate Rhythm: regular rhythm GI Inspection: Yes normal to inspection and Yes incision (well healed) Palpation (GI): Soft to palpation and no masses Skin Other: Pannus grade 2 without evidence of acute rash Neuro General: patient oriented x3 Assessment & Plan Assessment & Plan (1) Obesity: Code(s): E66.9 - Obesity, unspecified Category: Medical Qualifiers: Obesity type: due to excess calories Obesity classification: adult class 2 (BMI 35 - 39.9) Serious obesity comorbidity presence: with serious comorbidity Body mass index: BMI 38.0-38.9 Qualified Code(s): E66.01 - Morbid (severe) obesity due to excess calories; Z68.38 - Body mass index [BMI] 38.0- 38.9, adult Plan: Encouraged to get labs done. Continue meal plan. Continue exercises she is doing. Return to clinic 3 months. Regarding the excess skin, continue p.r.n. clotrimazole she has achieved and maintained a healthy weight. Should she have continued recurrence of rash despite treatment with antifungal, consideration for adding a topical steroid, if this is still unsuccessful, petition insurance for medically necessary skin removal surgery.
[2024-06-14 13:35] VITALS: BP 110/60; PULSE 65; TEMP 36.6; O2SAT 98; BMI 22.6
== END 2024-06-14 13:55 | disposition home or self-care (01) ==
PROVIDERS: Visit Provider Physician Assistant Surgical
DX: E66.01 Morbid (severe) obesity due to excess calories (principal); Z68.38 Body mass index [BMI] 38.0-38.9, adult
CPT/HCPCS: 99213

== ENCOUNTER → 2024-06-14 13:26 | Outpatient (BNVA) | payer OTHER, SELFPAY | PROVIDERS: Visit Provider Physician Assistant Surgical | DX: L98.7 Excessive and redundant skin and subcutaneous tissue (principal); Z71.3 Dietary counseling and surveillance; Z98.84 Bariatric surgery status | CPT/HCPCS: 99212 ==

== ENCOUNTER 2024-08-30 08:49 | Outpatient (AMB) | payer OTHER, SELFPAY ==
[2024-08-30 08:54] VITALS: BP 99/62; PULSE 63; TEMP 36.6; O2SAT 100; BMI 22.3
--- NOTE | 2024-08-30 08:54 | A.OFFVIS_ITS ---
Vital Signs 08/30/24 08:54 Height 5 ft 5 in Intake Visit Reasons: (OV) PO LSG 05/29/23 Allergies No Known Allergies Allergy (Verified 08/30/24 08:54) PFSH Medical History Obesity Vitamin B12 deficiency Vitamin D deficiency Liver fibrosis Steatosis, liver Anxiety Depression PCOS (polycystic ovarian syndrome) Hyperlipidemia Morbid obesity Surgical History Hx of laparoscopic partial gastrectomy Hx of wisdom tooth extraction Social History Household Members: Significant Other Housing: House Are you a primary personal care service provider to a significant other at home: No Do you presently have visiting nurse or other home services: No Alcohol intake: never Patient Tobacco Use Status: Never used Tobacco Substance Use Type: Marijuana Coding
--- NOTE | 2024-08-30 09:00 | A.OFFVIS_ITS ---
VS Expanded 08/30/24 08:54 BP 99/62 Blood Pressure Location Rt brachial Blood Pressure Position Sitting Pulse 63 Pulse Source Pulse Oximeter Temp 97.9 F Temperature Source Skin Pulse Oximetry 100 Oxygen Delivery Method Room Air Height 5 ft 5 in Weight 134 lb 4 oz BMI 22.3 Body Fat % 23.6 Body Fat Mass 31.8 Fat Free Mass 102.6 Visceral Fat Rating 1.0 Body Water % 55.0 Body Water Mass 73.8 Muscle Mass/Score 97.2 Basal Metabolic Rate/Score 1,409 Intake Visit Reasons: (OV) PO LSG 05/29/23 Sweet Pickle Maker Required: No Allergies No Known Allergies Allergy (Verified 08/30/24 08:54) Medication List - Last Reconciled 08/30/24 by DELANEY Obrien bddlxcwirbib-spr-jsxu-FA-vit K 45 mg iron- 800 mcg-120 mcg (Bariatric Multivitamins) caps PO nitrofurantoin monohyd/m-cryst 100 mg 1 cap PO DAILY PRN norethindrone-ethin estradiol 0.5-35 mg-mcg (Nortrel) 1 tab PO DAILY sennosides (senna) 17.2 mg (2 x 8.6 mg) PO BEDTIME HPI Comments Details: This?a?23?yo female who is s/p LSG without hiatal hernia repair on?05/29/2023. Presents for 1 year 3 month post op visit. Weight today is 134.4 pounds, with a BMI of 22.3. There has been a 116.8 pound weight loss,(initial weight 251.2 pounds) since starting the program on 01/20/2023 reflecting a 46.4 % total body weight loss and a weight loss of 98.2 pounds since surgery (operative weight 232.6 pounds) reflecting a 42.2 % TBWL since surgery. No complaints of nausea, emesis, abdominal pain or reflux. Reports constipation resolved. continues MVI without iron She is no longer skipping meals. Following the meal plan. Feels great. She states she gets a rash to the skin folds of the abdomen with increased exercise and activity, especially under the abdominal pannus. She has pain when she would do certain exercises at the gym such as jumping or running. She has itching and rash intermittently, 2-3 x per month she was prescribed clotrimazole at her last appointment, this has improved but not resolved her recurrent rash. Since using the clotrimazole, she would have a rash with resolution however once she stops this, she would have recurrence. Likes current plan Present meal plan includes: meal 6 forks protein, 6 forks veg ZP bar 9-11 meal 6 forks protein, 6 forks veg 1/2 c fresh fruit 7-9p drinkin oz water ?Exercise routine includes: 30 min cardio, 30 min weights 5 x per weekincline 15 speed 2.4-3 PFSH Medical History Obesity Vitamin B12 deficiency Vitamin D deficiency Liver fibrosis Steatosis, liver Anxiety Depression PCOS (polycystic ovarian syndrome) Hyperlipidemia Morbid obesity Surgical History Hx of laparoscopic partial gastrectomy Hx of wisdom tooth extraction Social History Household Members: Significant Other Housing: House Are you a primary client care consultant to a significant other at home: No Do you presently have visiting nurse or other home services: No Alcohol intake: never Patient Tobacco Use Status: Never used Tobacco Substance Use Type: Marijuana Physical Exam Vital Signs: Last Vital Signs Temp 97.9 F 08/30/24 08:54 Pulse 63 08/30/24 08:54 BP 99/62 08/30/24 08:54 Pulse Ox 100 08/30/24 08:54 Oxygen Delivery Method Room Air 08/30/24 08:54 BMI result Body Mass Index 22.3 Const General: healthy appearing and no acute distress Resp Effort & Inspection: normal respiratory effort Auscultation: clear to auscultation bilaterally Cardio Rate: regular rate Rhythm: regular rhythm GI Auscultation: normal bowel sounds Skin Other: Grade 2 abdominal pannus Extrem General: Yes normal to inspection Assessment & Plan Assessment & Plan (1) S/P laparoscopic sleeve gastrectomy: Code(s): Z98.84 - Bariatric surgery status Category: Surgical Plan: Patient is maintaining a healthy weight. She is satisfied with her meal plan. Her exercise plan is well balanced. She will continue her current plans and follow-up in the office for her 18 month postop appointment in November. (2) Excess skin: Code(s): L98.7 - Excessive and redundant skin and subcutaneous tissue Category: Medical Plan: Patient has lost over 116 lb or 46% of her total body weight. She is having problems with the abdominal pannus interfering her ADLs requiring frequent hygiene. She additionally is having pain with exercise including jumping or running due to the abdominal pannus. She has been using antifungal cream. This is effective while she uses it however has recurrent skin infections. She has had 1-2 per month over the last 3 months, we will continue to follow clinically and submit for medically approved skin removal surgery at her next visit. If cream becomes ineffective, she will text me and we will add topical steroid.
--- OUTSIDE RECORDS SUMMARY | 2024-08-30 09:38 | XMS_ITS | Encounter Summary ---
Author Organization [facility] Address [address] [place], [place] [id number] Phone Care Team Providers Care Physician Internist Name Role Phone Melany Saunders MD Primary Care Prov ider Encounter Details Date Type Department Care Team (Late st Contact Info) Description 07/24/2017 Conversion Encounter [facility] [address] [id number] Melany Anne MD [address] [id number] Social History Tobacco Use Types Packs/Day Years Used Date Smoking Tobacco: Never Comments:Never Comments Unknown Sex and Gender Information Value Date Recorded Sex Assigned at Not on file Legal Sex Female 12:17 PM EST Gender Identity Not on file Sexual Orientation Not on file documented as of this encounter Plan of Treatment Not on file documented as of this encounter Visit Diagnoses Not on filedocumented in this encounter Care Teams Physician Internist Relationship Specialty Start Date End Date Melany Saunders MD [address] [id number] PCP - General 02/11/17 documented as of this encounter
--- OUTSIDE RECORDS SUMMARY | 2024-08-30 09:38 | XMS_ITS | Clinical Summary ---
Author Organization [facility] Address [address] [place] [id number] Phone Care Team Providers Care Rural Service Engineer Name Role Phone Melany Saunders MD Primary Care Prov ider Family History Relation Name Status Comments Father Hypertensive di sorder Father's Brother Diabetes me llitus Other Unspecified Rel ation: Obesity Note: paternal side Paternal Grandmother Diabete s mellitus Social History Tobacco Use Types Packs/Day Years Used Date Smoking Tobacco: Never Comments:Never Comments Unknown Sex and Gender Information Value Date Recorded Sex Assigned at Not on file Legal Sex Female 12:17 PM EST Gender Identity Not on file Sexual Orientation Not on file Last Filed Vital Signs Vital Sign Reading Time Taken Comments Blood Pressure 105/67 02/11/2017 12:00 AM EDT Pulse 81 02/11/2017 12:00 AM EDT Temperature 36.8 ??C (98.2 ??F) 02/11/2017 12:00 AM E DT Respiratory Rate - - Oxygen Saturation 99% 11/11/2014 12:00 AM EDT Inhaled Oxygen Concentration - - Weight 99.1 kg (218 lb 8 oz) 02/11/2017 12:00 AM EDT Height 162.6 cm (5' 4 ) 02/11/2017 12:00 AM EDT Body Mass Index 37.51 02/11/2017 12:00 AM EDT Plan of Treatment Health Maintenance Due Date Last Done Comments DTaP,Tdap,and Td Vaccines (7 - Td or Tdap) 12/23/2019 12/22/2009, 11/10/2002, 05/05/2000, Additional history exists Influenza Vaccines (#1) 2023 06/21/19 17, 05/23/2015, 05/23/2014, Additional history exists COVID-19 Vaccine ( season) 2024 Hepatitis B Vaccines Completed 08/06/1999, 1998, 1998 HIB Vaccines Completed 02/04/2000, 04/25, 03/12/1999, Additional history exists Pneumococcal Vaccine Completed 05/05/2000, 02/04/20 00 IPV Vaccines Completed 11/10/2002, 04/25, 03/12/1999, Additional history exists MMR Vaccines Completed 11/10/2002, 02/04/2000 Varicella Vaccines Completed 11/17/2008, 11/05/1999 HPV Vaccines Completed 09/25/2011, 12/22/2009 Meningococcal Vaccine Completed 05/23/2015, 010 Hepatitis A Vaccines Completed 06/21/2016, 05/23/20 15 Men B Vaccine Aged Out No longer elig ible based on patient's age to complete this topic Care Teams Rural Service Engineer Relationship Specialty Start Date End Date Melany Saunders MD [address] [place] [id number] PCP - General 02/11/17
--- OUTSIDE RECORDS SUMMARY | 2024-08-30 09:38 | XMS_ITS | Clinical Summary ---
Author Organization [facility] Address [address] [place] [address] Phone Care Team Providers Care Social Media Intern Name Role Phone Óscar Dawson MD Primary Care Provider Allergies No known active allergies Medications ondansetron ODT (ZOFRAN-ODT) 4 mg disintegrating tablet Take 1 tablet (4 mg total) by mouth every 8 (eight) hours if needed. 10/10/19 24 Active norethindrone (AGGIE,JOSE,HEAT HER,MICRONOR) 0.35 mg tablet Take 1 Tablet by mouth daily for 360 days. - Oral Active nitrofurantoin, macrocrystal-monoh ydrate, (MACROBID) 100 mg capsule Take 1 capsule (100 mg total) by mouth 2 (two) times a day. TAKE 1 CAPSULE BY MOUTH AFTER INTERCOURSE 03/16/20 24 Active ibuprofen (ADVIL,MOTRIN) 600 mg tabletIndications: Acute pain of right knee Take 1 tablet (600 mg total) by mouth 3 (three) times a day if needed for mild pain (pain). 60 tablet 06/07/19 25 025 Active Problems Problem Noted Date Diagnosed Date PCOS (polycystic ovarian syndrome) 06/19/2020 Overview (03/02/2024): Referred to Endo Hyperlipidemia 04/24/2020 Anxiety 03/03/2020 Encounters Date Type Department Care Team Description 08/03/2024 Telephone Obstetrics and Gynecology [address] [phone] Shama Medina CNM 07/05/2024 7:00 AM EST Evaluation [facility] [address] [phone] Susan Story, HENRIETTA Acute pain of right knee 06/07/2024 8:03 AM EST - 06/07/2024 11:59 PM EST [facility] [address] [place], [place] [phone] Acute pain of right knee Discharge Disposition: Home or Self Care 06/07/2024 7:30 AM EST Office Visit Adult Medicine [address] [phone] Bree Sawant, SAMPLE STEAMER Acute pain of right knee (Primary Dx) from Last 3 Months Immunizations Name Administration Dates Next Due Pfizer SARS-CoV-2 COVID-19, mRNA, LNP-S, preservative free 11/09/2020,10/19/2020 Surgical History Surgery Date Site/Laterality Comments WISDOM TOOTH EXTRACTION PROCEDURE: HISTORICAL WISDOM TEETH EXTRACTION OTHER SURGICAL HISTORY 05/29/2023 PROCEDURE: CA ENDO SLEEVE GASTRO W/TUBE Medical History Medical History Date Comments Anxiety with depression DX:Anxie ty with depression Mixed hyperlipidemia DX:Mixed hy perlipidemia Recurrent UTI DX:Recurrent UTI Family History Medical History Relation Name Comments Bipolar disorder Brother Other: heart disease Brother Hypertension Father No Known Problems Maternal Grandfather Dementia Maternal Grandmother Diabetes Maternal Grandmother Glaucoma Maternal Grandmother Breast cancer Mother On chemo Other: breast lump Mother No Known Problems Paternal Grandfather Stomach cancer Paternal Grandmother Cervical cancer Neg Hx Ovarian cancer Neg Hx Uterine cancer Neg Hx Relation Name Status Comments Brother Alive Father Alive Maternal Grandfather Alive Maternal Grandmother Mother Alive Paternal Grandfather Paternal Grandmother Social History Tobacco Use Types Packs/Day Years Used Date Smoking Tobacco: Never Smokeless Tobacco: Never Tobacco Cessation:Counseling Given: Not Answered Alcohol Use Standard Drinks/Week Comments No 0 (1 standard drink = 0.6 oz pur e alcohol) Housing Instability Answer Date Recorde d Are you worried that in the next 2 months you may not have stable housing? No 04/08/2024 Food Access & Nutrition Answer Date Rec orded Do you have access to a vari ety of food including fruits and vegetables? Yes 04/08/2024 Access to Healthcare Answer Date Record ed Within the last 3 months, ho w many times did you visit the emergency department for your medical care? 1 04/08/2024 Health Literacy Answer Date Recorded How often do you need to hav e someone help you when you read instructions, pamphlets, or other written material from your doctor or pharmacy? Never 04/08/2024 Caregiver: How often do you need to have someone help you when you read instructions, pamphlets, or other written material from your doctor or pharmacy? Not on file 04/08/2024 Financial Risk Answer Date Recorded How hard is it for you to pa y for the very basics like food, housing, medical care, and air conditioning / heating? Very hard 04/08/2024 Transportation Answer Date Recorded Has the lack of transportati on kept you from meetings, work, or from getting things needed for daily living? No Has the lack of transportati on kept you from medical appointments or from getting medications? No 04/08/2024 Social Isolation Answer Date Recorded How often do you feel lonely or isolated from th ose around you? Rarely 04/08/2024 Food Risk Answer Date Recorded Within the past 12 months we worried whether our food would run out before we got money to buy more. Never true 04/08/2024 Within the past 12 months th e food we bought just didn't last and we didn't have money to get more. Never true 04/08/2024 Dependent Care Answer Date Recorded Do you need help finding or paying for care for your loved ones. For example, child care centre manager or elderly care for an older adult? No 04/08/2024 Education Answer Date Recorded Do you think completing more education or training, like finishing a GED, going to college, or learning a trade, would be helpful for you? Yes 04/08/2024 Employment and Income Answer Date Recor ded During the last four weeks, have you been actively looking for work? No 04/08/2024 Living Situation Answer Date Recorded What is your living situation? 1 06/08/2023 Comments No Sex and Gender Information Value Date Recorded Sex Assigned at Not on file Legal Sex Female 1:46 AM EST Gender Identity Not on file Sexual Orientation Not on file Obstetrics History Para Term AB IAB SAB Ectopic Multiple Livin g Live Births 0 0 0 0 0 0 0 0 0 0 0 Last Filed Vital Signs Vital Sign Reading Time Taken Comments Blood Pressure 108/65 06/07/2024 7:49 AM EST Pulse 66 06/07/2024 7:49 AM EST Temperature 35.9 ??C (96.7 ??F) 06/07/2024 7:49 AM ES T Respiratory Rate 16 06/07/2024 7:49 AM EST Oxygen Saturation 99% 06/07/2024 7:49 AM EST Inhaled Oxygen Concentration - - Weight 63.3 kg (139 lb 9.6 oz) 06/07/2024 7:49 A M EST Height 165.1 cm (5' 5 ) 06/07/2024 7:49 AM EST Body Mass Index 23.23 06/07/2024 7:49 AM EST Plan of Treatment Upcoming Encounters Date Type Department Care Team (Late st Contact Info) Description 08/30/2024 3:30 PM EDT Office Visit Obstetrics and Gynecology - [place] [id number] [place] [address] Shama Medina, [facility] [address] [place] [address] Health Maintenance Due Date Last Done Comments Hepatitis A Vaccines (2 of 2 - 2-dose series) 11/22/2015 05/23/2015 DTaP,Tdap,and Td Vaccines (7 - Td or Tdap) 12/23/2019 12/22/2009, 11/10/2002, 05/05/2000, Additional history exists HIV Screening 04/28/2022 Cervical Cancer Screening: Pap Smear 04/07/2023 04/07/2020, 04/07/2020, 04/05/2020 COVID-19 Vaccine ( season) 2024 11/09/2020, 10/19/2020 Influenza Vaccine (Season Ended) 2025 05/23/2015, 05/23/2014, 05/20/2013 Social Influencers of Health Screening 04/08/2025 04/08/2024 Depression Screening 08/29/2025 08/29/2024 Cholesterol Screening (Lipid Panel) 07/21/2028 07/21/2023 Hepatitis B Vaccines Completed 08/06/1999, 1998, 1998 HIB Vaccines Completed 02/04/2000, 04/25, 03/12/1999, Additional history exists Pneumococcal Vaccine: Pediatrics (0 to 5 Years) and At-Risk Patients (6 to 64 Years) Completed 05/05/2000, 02/04/2000 IPV Vaccines Completed 11/10/2002, 04/25, 03/12/1999, Additional history exists MMR Vaccines Completed 11/10/2002, 02/04/2000 Varicella Vaccines Completed 11/17/2008, 11/05/1999 HPV Vaccines Completed 05/23/2015, 0506/2011, 12/22/2009 Meningococcal ACWY Vaccine Completed 05/23/2015, Gonorrhea/Chlamydia Screening Discontinued 08/10/2021 Hepatitis C Screening Completed 09/11/2022 Meningococcal B Vacine Aged Out No lo nger eligible based on patient's age to complete this topic RSV Immunization Patients Under 20 months Aged Out No longer eligible based on patient's age to complete this topic Procedures Procedure Name Priority Date/Time Associated Diagnosis Comments XR KNEE 4+ VIEWS RIGHT Routine 06/07/2024 8:15 AM EST Acute pain of right knee LIPID PANEL Routine 07/21/2023 HEPATITIS C SCREENING Routine 09/11/2022 GONORRHEA/CHLAMYDIA SCRREENING Routine 08/10/2021 HM HPV Routine 04/07/2020 from Last 3 Months or Most Recently Relevant to Health Maintenance Results * XR Knee 4+ Views Right (06/07/2024 8:15 AM EST) Anatomical Region Laterality Modality Lower Extremities, Knee Right Radiogra phic Imaging 06/07/2024 8:36 AM EST Impressions 06/07/2024 8:37 AM EST No acute fracture or dislocation. -------- FINAL REPORT -------- Dictated By: Theodora Stearns Dictated Date: 06/07/2024 08:36 ET Assigned Physician: Theodora Stearns Reviewed and Electronically Signed By: Theodora Stearns Signed Date: 06/07/2024 08:37 ET Workstation ID: [id number] Transcribed By: Self Edit Transcribed Date: 06/07/2024 08:36 ET Narrative 06/07/2024 8:37 AM EST XR KNEE 4+ VIEWS RIGHT Reason: knee pain Comparison: None FINDINGS: No fracture. ??Mild lateral tilting of the patella. Normal joint spaces. ??Small suprapatellar joint effusion. Procedure Note Theodora Stearns MD - 06/07/2024 XR KNEE 4+ VIEWS RIGHT Reason: knee pain Comparison: None FINDINGS: No fracture. Mild lateral tilting of the patella. Normal joint spaces.Small suprapatellar joint effusion. IMPRESSION: No acute fracture or dislocation. -------- FINAL REPORT -------- Dictated By: Theodora Stearns Dictated Date: 06/07/2024 08:36 ET Assigned Physician: Theodora Stearns Reviewed and Electronically Signed By: Theodora Stearns Signed Date: 06/07/2024 08:37 ET Workstation ID: [id number] Transcribed By: Self Edit Transcribed Date: 06/07/2024 08:36 ET Bree Sawant SAMPLE STEAMER IMG XR PROCEDURES Final Resu lt * (ABNORMAL) Lipid panel (07/21/2023) LDL/HDL Ratio 4 0 - 4 Triglycerides 147 0 - 150 mg/dL Cholesterol 171 0 - 200 mg/dL HDL 41 >=40 mg/dL LDL Cholesterol 101(A) 0 - 100 mg/dL Blood Venous blood specimen / Unknown Historical Provider LAB BLOOD ORDERABLES Roberta l Result * Hepatitis C Screening (09/11/2022) Hepatitis C Screening abstracted Historical Provider HEALTH MAINTENANCE Final Result * Gonorrhea/Chlamydia Screening (08/10/2021) Pathologist [facility] Gonorrhea/Chla mydia Screening abstracted Historical Provider HEALTH MAINTENANCE Final Result * Cervical Cancer Screening: HPV (04/07/2020) Pathologist [facility] Cervical Cancer Screening: HPV no interpretation , abstracted Historical Provider HEALTH MAINTENANCE Final Result from Last 3 Months or Most Recently Relevant to Health Maintenance Insurance [facility] [employer] Care Teams Social Media Intern Relationship Specialty Start Date End Date Óscar Dawson MD [address] [place] [address] PCP - General Internal Medicine 05/27/24
== END 2024-08-30 09:20 | disposition home or self-care (01) ==
LOC: HO.HBS 08:50
PROVIDERS: Visit Provider Physician Assistant Surgical
DX: L98.7 Excessive and redundant skin and subcutaneous tissue (principal); Z98.84 Bariatric surgery status
CPT/HCPCS: 99213; G2211

== ENCOUNTER → 2024-08-30 08:49 | Outpatient (BNVA) | payer OTHER, SELFPAY | PROVIDERS: Visit Provider Physician Assistant Surgical | DX: L98.7 Excessive and redundant skin and subcutaneous tissue (principal); E65 Localized adiposity; Z98.84 Bariatric surgery status | CPT/HCPCS: 99212 ==

== ENCOUNTER 2025-01-21 09:30 | Outpatient (REF) | payer OTHER, SELFPAY ==
[2025-01-21 09:51] LABS: MANUAL DIFF FLAG NO
--- OUTSIDE RECORDS SUMMARY | 2025-01-21 10:17 | XMS_ITS ---
Author Name [facility] Organization Unknown Care Team Organization Name Specialty Phone Email Start Date End Da te [facility] PRITESH LEO Primary Care 04/02/20222023
--- OUTSIDE RECORDS SUMMARY | 2025-01-21 10:17 | XMS_ITS | Clinical Summary ---
Author Organization [facility] Address [address] [place] [id number] Phone Care Team Providers Care Wire Wrapping Machine Operator Name Role Phone Melany Saunders MD Primary [...] 81 02/11/2017 12:00 AM EDT Temperature 36.8 C (98.2 F) 02/11/2017 12:00 AM EDT Respiratory Rate - - Oxygen Saturation 99% [...] 12/23/2019 12/22/2009, 11/10/2002, 05/05/2000, Additional history exists COVID-19 Vaccine ( season) 2024 Influenza Vaccines (#1) 2024 06/21/19 17, 05/23/2015, 05/23/2014, Additional history exists Hepatitis B Vaccines Completed 08/06/1999, 1998, 1998 [...] age to complete this topic Care Teams Wire Wrapping Machine Operator Relationship Specialty Start Date End Date Melany Saunders MD [address] [place] [id number] PCP - General 02/11/17
--- OUTSIDE RECORDS SUMMARY | 2025-01-21 10:17 | XMS_ITS | Encounter Summary ---
Author Organization [facility] Address [address] [place] [address] Phone Care Team Providers Care Magnetic Observer Name Role Phone Melany Saunders MD Primary Care Prov ider Encounter Details Date Type Department Care Team (Late st Contact Info) Description 07/24/2017 Conversion Encounter [facility] [address] [phone] Melany Anne MD [address] [address] Social History Tobacco Use Types Packs/Day Years [...] on filedocumented in this encounter Care Teams Magnetic Observer Relationship Specialty Start Date End Date Melany Saunders MD [address] [address] PCP - General 02/11/17 documented as of this encounter
--- OUTSIDE RECORDS SUMMARY | 2025-01-21 10:17 | XMS_ITS | Clinical Summary ---
Author Organization [facility] Address [address] [place] [address] Phone Care Team Providers Care Electrical Transmission Engineer Name Role Phone Óscar Dawson MD Primary Care Provider Allergies No known active allergies Medications nitrofurantoin, macrocrystal-monoh ydrate, (MACROBID) 100 mg capsule Take 1 capsule (100 mg total) by mouth 2 (two) times a day. TAKE 1 CAPSULE BY MOUTH AFTER INTERCOURSE 03/16/20 24 Active norethindrone (AGGIE,JOSE,HEAT HER,MICRONOR) 0.35 mg tablet Take 1 tablet (0.35 mg total) by mouth 1 (one) time each day. Take 1 Tablet by mouth daily for 360 days. - Oral 90 tablet 3 08/31/19 25 Active ondansetron ODT (ZOFRAN-ODT) 4 mg disintegrating tablet Take 1 tablet (4 mg total) by mouth every 8 (eight) hours if needed for nausea. 270 tablet 12/29/19 25 Active hydrOXYzine HCL (ATARAX) 25 mg tablet Take 1 tablet (25 mg total) by mouth at bedtime. 90 each 1 12/29/19 25 Active ondansetron ODT (ZOFRAN-ODT) 4 mg disintegrating tablet Take 1 tablet (4 mg total) by mouth every 8 (eight) hours if needed. 10/10/19 24 025 Discontin ued(Reord er) Active Problems Problem Noted Date Diagnosed Date History of bariatric surgery 12/28/2024 Overview (12/28/2024): Status post gastric sleeve done in 2022. Done at [place]. PCOS (polycystic ovarian syndrome) 06/19/2020 Overview (03/02/2024): Referred to Endo Hyperlipidemia 04/24/2020 Anxiety 03/03/2020 Encounters Date Type Department Care Team Description 01/10/2025 Telephone Adult Medicine [address] [phone] Óscar Dawson MD 12/28/2024 9:45 AM EDT Office Visit Adult Medicine [address] [phone] Óscar Dwason MD TAZ (generalized anxiety disorder) (Primary Dx); History of bariatric surgery 10/26/2024 10:43 AM EDT - 10/26/2024 11:59 PM EDT Hospital Encounter Radiology Department - [address] [phone] Axillary lump, left Discharge Disposition: Home or Self Care 10/26/2024 10:00 AM EDT Office Visit Adult Medicine [address] [phone] Gloria Lopez PA Axillary lump, left (Primary Dx) 10/25/2024 Telephone Adult Medicine [address] [phone] Óscar Dawson MD from Last 3 Months Immunizations Name Administration Dates Next Due DTaP (Infanrix) 6wks to less than 7yo ,05/05/2000,05/07/1999,03/12,01/08/1999 HPV 9-valent (Gardisil) 9yo to less than 46yo 05/23/2015 HPV, Quadrivalent 09/25/2011,12/22/2009 Hepatitis A Pediatric (Havri x; Vaqta) 12mo to less than 19yo 05/23/2015 Hepatitis B Pediatric (Enger ix B; Recombivax HB) to less than 20 yo 08/06/1999,1998,1998 HiB 02/04/2000, 9,03/12/1999,01/08 IPV Inactivated polio (Ipol) 6wks and older 11/10/2002,05/05/2000,03/12/1999,01/08 Influenza Quadrivalent, 0.5m l, preservative free (Fluarix; FluLaval; Fluzone) ages 6mo and older (Afluria) 3yo and older 05/23/2015,05/23/2014,05/20/2013 MMR, measles mumps and rubel la Live (Priorix; M-M-R II) 12mo and older 11/10/2002,02/04/2000 Meningococcal MCV4P 05/23/2015,12/22/2009 SuperDerivatives SARS-CoV-2 COVID-19, mRNA, LNP-S, preservative free 11/09/2020,10/19/2020 Pneumococcal Conjugate Vacci ne, 7 Valent 05/05/2000,02/04/2000 Tdap Tetanus diptheria acell ular pertussis (Boostrix; Adacel) 7yo and older 10/26/2024,12/22/2009 Varicella live (Varivax) 12m o and older 11/17/2008,11/05/1999 Surgical History Surgery Date Site/Laterality Comments WISDOM TOOTH EXTRACTION PROCEDURE: HISTORICAL WISDOM TEETH EXTRACTION OTHER SURGICAL HISTORY 05/29/2023 PROCEDURE: DE ENDO SLEEVE GASTRO W/TUBE Medical History Medical [...] for your loved ones. For example, child and family services worker or elderly care for an older adult? [...] Sign Reading Time Taken Comments Blood Pressure 113/61 12/28/2024 9:48 AM EDT Pulse 67 12/28/2024 9:48 AM EDT Temperature 36.7 C (98.1 F) 12/28/2024 9:48 AM EDT Respiratory Rate 16 12/28/2024 9:48 AM EDT Oxygen Saturation 99% 12/28/2024 9:48 AM EDT Inhaled Oxygen Concentration - - Weight 64.3 kg (141 lb 12.8 oz) 12/28/2024 9:48 AM EDT Height 165.1 cm (5' 5 ) 12/28/2024 9:48 AM EDT Body Mass Index 23.6 12/28/2024 9:48 AM EDT Plan of Treatment Health Maintenance Due Date Last Done Comments Hepatitis A Vaccines (2 of 2 - 2-dose series) 11/22/2015 05/23/2015 HIV Screening 04/28/2022 COVID-19 Vaccine ( season) 2024 11/09/2020, 10/19/2020 Influenza Vaccine (#1) 2025 5, 05/23/2014, 05/20/2013 Social Influencers of Health Screening 04/08/2025 04/08/2024 Cervical Cancer Screening: Pap Smear 08/31/2027 08/30/2024, 04/07/2020, 04/07/2020, Additional history exists Cholesterol Screening (Lipid Panel) 07/21/2028 07/21/2023 DTaP,Tdap,and Td Vaccines (8 - Td or Tdap) 10/26/2034 10/26/2024, 12/22/2009, 11/10/2002, Additional history exists Hepatitis B Vaccines Completed 08/06/1999, 1998, 1998 HIB Vaccines Completed 02/04/2000, 04/25, 03/12/1999, Additional history exists Pneumococcal Vaccine: Pediatrics (0 to 5 Years) and At-Risk Patients (6 to 49 Years) Completed 05/05/2000, 02/04/2000 IPV Vaccines Completed 11/10/2002, 04/25, 03/12/1999, Additional history exists MMR Vaccines Completed 11/10/2002, 02/04/2000 Varicella Vaccines Completed 11/17/2008, 11/05/1999 HPV Vaccines Completed 05/23/2015, 06/2011, 12/22/2009 Meningococcal ACWY Vaccine Completed 05/23/2015, Hepatitis C Screening Completed 09/11/2022 Depression Screening Completed 08/29/2024 Gonorrhea/Chlamydia Screening Discontinued 08/30/2024, 08/10/2021 Meningococcal B Vaccine Aged Out No l onger eligible based on patient's age to complete this topic RSV Immunization Patients Under 20 months Aged Out No longer eligible based on patient's age to complete this topic Procedures Procedure Name Priority Date/Time Associated Diagnosis Comments US AXILLA (BREAST) LIMITED LEFT Routine 10/26/2024 11:03 AM EDT Axillary lump, left PAP SMEAR Routine 08/30/2024 4:13 PM EDT Encounter for gynecological examination without abnormal finding CHLAMYDIA TRACHOMATIS AND NEISSERIA GONORRHOEAE BY TMA, THINPREP Routine 08/30/2024 4:13 PM EDT Encounter for gynecological examination without abnormal finding LIPID PANEL Routine 07/21/2023 HM HEPATITIS C SCREENING Routine 09/11/2022 from Last 3 Months or Most Recently Relevant to Health Maintenance Results * US Axilla (Breast) Limited Left (10/26/2024 11:03 AM EDT) Anatomical Region Laterality Modality Breast Left Ultrasound 10/26/2024 7:06 PM EDT Impressions 10/26/2024 7:10 PM EDT 2 normal-appearing lymph nodes in the palpable areas of concern. POS - [id number] -------- FINAL REPORT -------- Dictated By: Sonam Zeng Dictated Date: 10/26/2024 19:06 ET Assigned Physician: Sonam Zeng Reviewed and Electronically Signed By: Sonam Zeng Signed Date: 10/26/2024 19:10 ET Workstation ID: [id number] Transcribed By: Self Edit Transcribed Date: 10/26/2024 19:06 ET Narrative 10/26/2024 7:10 PM EDT EXAM: Ultrasound axilla, limited left HISTORY: 2 palpable axillary lumps for 5 days. COMPARISON: None FINDINGS: Patient delineated the 2 palpable left axillary lumps. Sonography shows 2 nonenlarged lymph nodes which measure 1.0 x 0.8 x 0.4 cm and 0.8 x 0.7 x 0.4 cm. Both lymph nodes have normal echogenic fatty juancarlos without cortical thickening and without hypervascularity on color Doppler. us Gloria GORE US PROCEDURES Final Result * Chlamydia trachomatis and neisseria gonorrhoeae by tma, thinprep (08/30/2024 4:13 PM EDT) N. gonorrhoeae, RNA Probe Negative Negative LAB MICROBIOLOGY METHOD 09/02/2024 6:13 PM EDT [facility] Chlamydia, RNA Probe Negative Negative LAB MICROBIOLOGY METHOD 09/02/2024 6:13 PM EDT [facility] Brushing/Spatula Cervix uteri structure / Unknown 08/30/2024 4:13 PM EDT 09/01/2024 6:19 AM EDT Shama Medina CNM LAB CYTOLOGY ORDERABLES Final Result [facility] [address] [place] [address], [place] [phone] * Pap smear (08/30/2024 4:13 PM EDT) Interpretation Negative for intraepithelial lesion or malignancy 09/03/2024 11:34 AM EDT [facility] General Categorization Negative 09/03[facility]24 [facility] 08/28/2024 09/03/2024 11:34 AM EDT [facility] Additional Information Note: Adequacy deemed satisfactory after reprocessing with the acid wash procedure for blood. 09/03/2024 11:34 AM EDT [facility] Specimen Adequacy Satisfactory for evaluation, endocervical/arana sformation zone component present 09/03/2024 11:34 AM [facility] Pap Methodology Liquid Based Pap Test 09/03/2024 11:34 AM EDT [facility] Disclaimer The Pap test is a screening test which carries an inherent false negative rate. These test results should be correlated with the patient's clinical findings and history. This Pap test was processed using an automated screening system. Technical cytopathology services provided by [facility], at [address] [place] [id number] (CLIA # [id number]/Krzysztof Jefferson MD, Pediatrics Teacher.) 09/03/2024 11:34 AM [facility] Console Pap Interpretation Reported 09/03/2024 11:34 AM [facility] Brushing/Spatula Cervix uteri structure / Unknown 08/30/2024 4:13 PM EDT 08/30/2024 4:13 PM EDT Shama DISLA LAB CYTOLOGY ORDERABLES Final Result [facility] [address] [place] [address], * (ABNORMAL) Lipid panel (07/21/2023) LDL/HDL Ratio 4 0 - 4 Triglycerides 147 0 - 150 mg/dL Cholesterol 171 0 - 200 mg/dL HDL 41 >=40 mg/dL LDL Cholesterol 101(A) 0 - 100 mg/dL Blood Venous blood specimen / Unknown us Historical Provider LAB BLOOD ORDERABLES Roberta l Result * Hepatitis C Screening (09/11/2022) Hepatitis C Screening abstracted Historical Provider HEALTH MAINTENANCE Final Result from Last 3 Months or Most Recently Relevant to Health Maintenance Insurance [facility] [employer] Care Teams Electrical Transmission Engineer Relationship Specialty Start Date End Date Óscar Dawson MD [address] [place] [phone] PCP - General Internal Medicine 10/25/24
[2025-01-21 10:40] LABS: Hematocrit 40.4 % (37.0-47.0); Hemoglobin 14.1 g/dl (12.0-16.0); Imm Gran Abs Auto 0.01 X10*3/uL (0.00-0.03); Imm Gran Pct Auto 0.2 % (0.0-0.4); Lymphocytes Absolute Auto 1.4 X10*3/uL (1.2-4.9); Mean Corpuscular HGB Conc 34.9 g/dl (31.0-35.0); Mean Corpuscular Hemoglobin 31.5 pg (27.0-33.0); Mean Corpuscular Volume 90.2 fL (80.0-98.0); NRBC Abs Auto 0.000 X10*3/uL (0.0-0.012); NRBC Pct Auto 0.0 /100WBC (0.0-0.2); Platelet Count 281 X10*3/uL (160-400); Red Blood Count 4.48 X10*6/uL (4.20-5.50); White Blood Count 4.0 X10*3/uL (4.8-10.8)
[2025-01-21 11:15] LABS: Hemoglobin A1C 102.7462 umol/L; Total Hemoglobin (HGBA1C) 3636.1858 umol/L
[2025-01-21 11:17] LABS: Alanine Aminotransferase 34 U/L (0-31); Albumin Level 4.7 g/dL (3.5-5.0); Alkaline Phosphatase 39 U/L (39-117); Anion Gap 12 (12-20); Aspartate Amino Transferase 25 U/L (5-31); Blood Urea Nitrogen 10 mg/dL (9-16); Calcium 9.8 mg/dL (8.4-10.2); Carbon Dioxide 27 mmol/L (22-29); Chloride 106 mmol/L (96-108); Cholesterol 195 mg/dL (<200); Estimated Glomerular Filt Rate > 60; HDL Cholesterol 57 mg/dL (>40); Iron 132 mcg/dL (30-160); Percent Iron Saturation 45 % (15-50); Potassium 4.5 mmol/L (3.3-5.1); Sodium 140 mmol/L (135-145); Total Iron Binding Capacity 291 mcg/dL (228-428); Total Protein 7.3 g/dL (6.5-8.0); Triglycerides 77 mg/dL (<150); Unsaturated Iron Binding 159 ug/dL
[2025-01-21 11:49] LABS: Ferritin 59 ng/mL (10-122)
[2025-01-21 11:52] LABS: Folate 8.5 ng/mL (> or = 4.0); Vitamin B12 527 pg/mL (200-900)
== END 2025-01-21 09:31 | disposition home or self-care (01) ==
LOC: HO.LAB 09:30
PROVIDERS: PCP Internal Medicine; Visit Provider Physician Assistant Surgical
DX: Z98.84 Bariatric surgery status (principal)
CPT/HCPCS: 36415; 80053; 80061; 82306; 82607; 82728; 82746; 83036; 83525; 83540; 84425; 84443; 84590; 84630; 85025; 86140

== ENCOUNTER 2025-03-28 09:36 | Outpatient (AMB) | payer OTHER, SELFPAY ==
--- NOTE | 2025-03-28 09:43 | MHC.OFFVISWM ---
VS Expanded 03/28/25 09:47 Height 5 ft 5 in Weight 134 lb 4 oz BMI 22.3 Intake Visit Reasons: Phone PO LSG 05/29/23 Allergies No Known Allergies Allergy (Verified 08/30/24 08:54) Medication List - Last Reconciled 03/28/25 by DELANEY Beard cholecalciferol (vitamin D3) 50 mcg PO DAILY jrrxgubpxdyd-ipi-etmg-FA-vit K 45 mg iron- 800 mcg-120 mcg (Bariatric Multivitamins) caps PO nitrofurantoin monohyd/m-cryst 100 mg 1 cap PO DAILY PRN norethindrone-ethin estradiol 0.5-35 mg-mcg (Nortrel) 1 tab PO DAILY sennosides (senna) 17.2 mg (2 x 8.6 mg) PO BEDTIME HPI Comments Details: This a 24 yo female who is s/p LSG without hiatal hernia repair on 05/29/2023. Presents for 1 year 10 month post op visit. Weight today is 134.4 pounds, with a BMI of 22.3. Initial weight 251.2 pounds since starting the program and operative weight 232.6 pounds. No complaints of nausea, emesis, abdominal pain or reflux. Reports constipation resolved. continues MVI without iron. She is no longer skipping meals. Following the meal plan. Feels great. She notes some problems with her teeth- increased cavities and cracking, wondering if she has some sort of deficiency. She states she gets a rash to the skin folds of the abdomen with increased exercise and activity, especially under the abdominal pannus. She has pain when she would do certain exercises at the gym such as jumping or running. She has itching and rash intermittently, 2-3 x per month she was prescribed clotrimazole at her last appointment, this has improved but not resolved her recurrent rash. Since using the clotrimazole, she would have a rash with resolution however once she stops this, she would have recurrence. However, she notes that she may desire children in the future. Likes current plan Present meal plan includes: meal 6-8 forks protein, 6 forks veg x 3 1/2 c fresh fruit 7-9p (berries) may do a protein snack- protein chips, or protein muffins ([employer]) drinkin oz water Exercise routine includes: 30 min cardio, 30 min weights 5 x per week incline 15 speed 2.4-3 Have you been diagnosed with reflux (GERD)? Score 0-5: 0=no symptoms, 1=noticeable but not bothersome (slight or occasional), 2=noticeable, bothersome but not daily, 3=bothersome and daily, 4=affects daily activities, 5=incapacitating, unable to do daily activities How bad is the heartburn: 0 Heartburn when lying down: 0 Heartburn when standing up: 0 Heartburn after meals: 0 Does heartburn change your diet: 0 Does heartburn wake you up from sleep: 0 Do you have difficulty swallowin Do you have pain with swallowin If you take medication for reflux, does this affect your daily life: 0 Total score: 0 PFSH Medical History Obesity Vitamin B12 deficiency Vitamin D deficiency Liver fibrosis Steatosis, liver Anxiety Depression PCOS (polycystic ovarian syndrome) Hyperlipidemia Morbid obesity Surgical History Hx of laparoscopic partial gastrectomy Hx of wisdom tooth extraction Social History Household Members: Significant Other Housing: House Are you a primary district manager primary care sales to a significant other at home: No Do you presently have visiting nurse or other home services: No Alcohol intake: never Patient Tobacco Use Status: Never used Tobacco Substance Use Type: Marijuana Telehealth Telehealth Telehealth Platform: Telephone Location of provider rendering services: practice address Location of patient: address on file Patient Identification confirmed using: Name, : Yes Telehealth method: voice only Patient verbally consented to treatment: Yes Patient verbally consented to billing insurance company: Yes Patient informed of any privacy concerns related to visit: Yes Minutes spent on Phone/Video with Pt.: 15 Assessment & Plan Assessment & Plan (1) S/P laparoscopic sleeve gastrectomy: Code(s): Z98.84 - Bariatric surgery status Category: Surgical (2) Excess skin: Code(s): L98.7 - Excessive and redundant skin and subcutaneous tissue Category: Medical Plan Pt has done very well achieving healthy weight after sleeve. She is happy with her meal plan, however it is mostly composed of whole foods so may need to transition back to protein shakes or bars if difficulty with weight loss. Exercise is adequate. Vitamin D ordered for complaints of issues with teeth and borderline low level on recent labs. We discussefd that she may want to wait on pursuing panniculectomy if she desires future pregnancies. RTC in 6mo for 2 year visit, texted pt and encouraged her to reach out to me between visits with any questions. Medications: New cholecalciferol (vitamin D3) 50 mcg PO DAILY 90 caps 3RF
[2025-03-28 09:47] VITALS: BMI 22.3
--- OUTSIDE RECORDS SUMMARY | 2025-03-28 11:00 | XMS_ITS | Clinical Summary ---
Author Organization [facility] Address [address] [place] [phone] Phone Care Team Providers Care Cable Swager Name Role Phone Melany Saunders MD Primary [...] 05/05/2000, Additional history exists Influenza Vaccines (#1) 2024 06/21/19 17, 05/23/2015, 05/23/2014, Additional history exists COVID-19 Vaccine (1 - 2025- season) 2025 Hepatitis B Vaccines Completed 08/06/1999, 1998, 1998 [...] age to complete this topic Care Teams Cable Swager Relationship Specialty Start Date End Date Melany Saunders MD [address] [place] [id number] PCP - General 02/11/17
--- OUTSIDE RECORDS SUMMARY | 2025-03-28 11:00 | XMS_ITS | Encounter Summary ---
Author Organization [facility] Address [address] [place], [place] [phone] Phone Care Team Providers Care Director Of Cardiac Rehabilitation Name Role Phone Melany Saunders MD Primary Care Prov ider Encounter Details Date Type Department Care Team (Late st Contact Info) Description 07/24/2017 Conversion Encounter [facility] [address] [phone] Melany Anne MD [address] [phone] Social History Tobacco Use Types Packs/Day Years [...] on filedocumented in this encounter Care Teams Director Of Cardiac Rehabilitation Relationship Specialty Start Date End Date Melany Saunders MD [address] [phone] PCP - General 02/11/17 documented as of this encounter
--- OUTSIDE RECORDS SUMMARY | 2025-03-28 11:00 | XMS_ITS | Clinical Summary ---
Author Organization [facility] Address [address] [place] [address] Phone Care Team Providers Care Subassemblies Wirer Name Role Phone Óscar Dawson MD Primary [...] bedtime. 90 each 1 12/29/19 25 Active Active Problems Problem Noted Date Diagnosed Date History of bariatric surgery 12/28/2024 Overview (12/28/2024): Status post gastric sleeve done in 2022. Done at [place]. PCOS (polycystic ovarian syndrome) 06/19/2020 Overview (03/02/2024): Referred to Endo Hyperlipidemia 04/24/2020 Anxiety 03/03/2020 Encounters Date Type Department Care Team Description 01/10/2025 Telephone Adult Medicine [address] [phone] Óscar Dawson MD 12/28/2024 9:45 AM EDT Office Visit Adult Medicine [address] [phone] Óscar Dawson MD TAZ (generalized anxiety disorder) (Primary Dx); History of bariatric surgery from Last 3 Months Immunizations Immunization Administration Dates Next Due DTaP (Infanrix) 6wks [...] 12mo and older 11/10/2002,02/04/2000 Meningococcal MCV4P 05/23/2015,12/22/2009 Pfizer SARS-CoV-2 COVID-19, mRNA, LNP-S, preservative free 11/09/2020,10/19/2020 Pneumococcal Conjugate Vacci ne, 7 Valent 05/05/2000,02/04/2000 Tdap Tetanus diptheria acell ular pertussis (Boostrix; Adacel) 7yo and older 10/26/2024,12/22/2009 Varicella live (Varivax) 12m o and older 11/17/2008,11/05/1999 Surgical History Surgery Date Site/Laterality Comments WISDOM TOOTH EXTRACTION PROCEDURE: HISTORICAL WISDOM TEETH EXTRACTION OTHER SURGICAL HISTORY 05/29/2023 PROCEDURE: TX ENDO SLEEVE GASTRO W/TUBE Medical History Medical [...] do you feel lonely or isolated from ose around you? Rarely 04/08/2024 Food Risk [...] care for your loved ones. For example, attendant child activity or elderly care for an older adult? [...] Date Recorded What is your living situation? Unrecognized valu e 04/08/2024 Comments No Sex and Gender Information Value [...] HIV Screening 04/28/2022 COVID-19 Vaccine ( season) 2025 11/09/2020, 10/19/2020 Influenza Vaccine (#1) 2025 5, 05/23/2014, 05/20/2013 Social Influencers of Health Screening 04/08/2025 04/08/2024 Cervical Cancer Screening: Pap Smear 08/31/2027 08/30/2024, 04/07/2020, 04/07/2020, Additional history exists Cholesterol Screening (Lipid Panel) 07/21/2028 07/21/2023 DTaP,Tdap,and Td Vaccines (8 - Td or Tdap) 10/26/2034 10/26/2024, 12/22/2009, 11/10/2002, Additional history exists RSV Immunization Adult Patients (1 - 1-dose 75+ series) 2073 Hepatitis B Vaccines Completed 08/06/1999, 1998, 1998 HIB Vaccines Completed 02/04/2000, 04/25, 03/12/1999, Additional history exists Pneumococcal Vaccine: Pediatrics (0 to 5 Years) and At-Risk Patients (6 to 49 Years) Completed 05/05/2000, 02/04/2000 IPV Vaccines Completed 11/10/2002, 04/25, 03/12/1999, Additional history exists MMR Vaccines Completed 11/10/2002, 02/04/2000 Varicella Vaccines Completed 11/17/2008, 11/05/1999 HPV Vaccines Completed 05/23/2015, 0506/2011, 12/22/2009 Meningococcal ACWY Vaccine Completed 05/23/2015, Hepatitis [...] Procedure Name Priority Date/Time Associated Diagnosis Comments EXTERNAL CLINICAL LAB 01/21/2025 EXTERNAL CLINICAL LAB 01/21/2025 EXTERNAL CLINICAL LAB 01/21/2025 EXTERNAL CLINICAL LAB 01/21/2025 PAP SMEAR Routine 08/30/2024 4:13 PM EDT Encounter for gynecological examination without abnormal finding CHLAMYDIA TRACHOMATIS AND NEISSERIA GONORRHOEAE BY TMA, THINPREP Routine 08/30/2024 4:13 PM EDT Encounter for gynecological examination without abnormal finding LIPID PANEL Routine 07/21/2023 HEPATITIS C SCREENING Routine 09/11/2022 from Last 3 Months or Most Recently Relevant to Health Maintenance Results * External clinical lab (01/21/2025) Only the most recent of4 resultswithin the time period is included. [facility] Onbase LAB BLOOD ORDERABLES Fin al Result * Chlamydia trachomatis and neisseria gonorrhoeae by tma, thinprep (08/30/2024 4:13 PM EDT) N. gonorrhoeae, RNA Probe Negative Negative LAB MICROBIOLOGY METHOD 09/02/2024 6:13 PM EDT [facility] Chlamydia, RNA Probe Negative Negative LAB MICROBIOLOGY METHOD 09/02/2024 6:13 PM EDT [facility] Brushing/Spatula Cervix uteri structure / Unknown 08/30/2024 4:13 PM EDT 09/01/2024 6:19 AM EDT Shama DISLA LAB CYTOLOGY ORDERABLES Final Result [facility] [address] [place] [address], * Pap smear (08/30/2024 4:13 PM EDT) Interpretation Negative for intraepithelial lesion or malignancy 09/03/2024 11:34 AM EDT [facility] General Categorization Negative [facility] 08/28/2024 09/03/2024 11:34 AM [facility] Additional Information Note: Adequacy deemed satisfactory after reprocessing with the acid wash procedure for blood. 09/03/2024 11:34 AM [facility] Specimen Adequacy Satisfactory for evaluation, endocervical/arana sformation zone component present 09/03/2024 11:34 AM [facility] Pap Methodology Liquid Based Pap Test 09/03/2024 11:34 AM [facility] Disclaimer The Pap test is a screening test which carries an inherent false negative rate. These test results should be correlated with the patient's clinical findings and history. This Pap test was processed using an automated screening system. Technical cytopathology services provided by [facility], at [address] [place] [id number] (CLIA # [id number]/Krzysztof Jefferson MD, Chief Engineer'S Helper.) 09/03/2024 11:34 AM [facility] Console Pap Interpretation Reported 09/03/2024 11:34 AM [facility] Brushing/Spatula Cervix uteri structure / Unknown 08/30/2024 4:13 PM EDT 08/30/2024 4:13 PM EDT Shama Shanees CNM LAB CYTOLOGY ORDERABLES Final Result [facility] [address] [place] [address], * (ABNORMAL) Lipid panel (07/21/2023) LDL/HDL Ratio [...] Most Recently Relevant to Health Maintenance Insurance [facility] [facility] Care Teams Subassemblies Wirer Relationship Specialty Start Date End Date Óscar Dawson MD [address] [place] [address] PCP - General Internal Medicine 10/25/24
== END 2025-03-28 10:11 | disposition home or self-care (01) ==
LOC: HO.HBS 09:36
PROVIDERS: PCP Internal Medicine; Visit Provider Physician Assistant Surgical
DX: L98.7 Excessive and redundant skin and subcutaneous tissue (principal); Z90.3 Acquired absence of stomach [part of]; Z98.84 Bariatric surgery status
CPT/HCPCS: 98013